=== PATIENT | female | born 1955 | race Caucasian/White ===

== ENCOUNTER 2016-12-03 13:07 | Inpatient (IN) ==
[2016-12-03] MEDS ORDERED: Pantoprazole 40 MG VIAL IVP ONE (13:19)
[2016-12-03] MEDS ORDERED: Ondansetron 4 MG/2 ML VIAL IVP ONE (13:22)
[2016-12-03] MEDS ORDERED: *HR* HYDROmorphone (PF) 1 MG/ML SYRINGE IVP ONE ×2 (13:22→21:25)
--- NOTE | 2016-12-03 13:44 | Emergency Department Note ---
Disposition Clinical Impression: Anemia Disposition: Admitted As Inpatient Condition: Fair Referrals: Lida Perez DO [Primary Care Provider] - Forms: Work/School Release, ED Satisfaction Letter Time of Disposition: 15:12 Abdominal Pain HPI - General Chief Complaint: ED Abdominal Pain Stated Complaint: abdominal pain/vomiting Time Seen by Provider: 12/03/16 13:10 Source: patient Mode of arrival: EMS Limitations: no limitations Nursing Notes Reviewed: Yes Vital Signs Reviewed: Yes - History of Present Illness HPI Narrative: 61-year-old has had a GI bleed in the past since she's had ulcer who comes in with dark tarry stools and vomiting some coffee-ground emesis. 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 Consistency: constant Location: diffuse Pain Severity: moderate Pain Scale: 8 Quality: cramping Radiation: none Migration to: no migration Improves with: nothing Worsens with: nothing Associated symptoms: Reports: nausea, vomiting Treatments prior to arrival: none - Related Data Home Medications Medication Instructions Recorded Confirmed Albuterol Sulfate [Proair Hfa] 2 puff IH Q4H PRN 09/01/16 09/01/16 Budesonide/Formoterol 160/4.5 2 puff IH BID 09/01/16 09/01/16 [Symbicort 160/4.5] Doxepin [Sinequan] 100 mg PO HS 09/01/16 09/01/16 Duloxetine HCl [Cymbalta] 60 mg PO DAILY 09/01/16 09/01/16 Ferrous Sulfate [Iron] 325 mg PO BID 09/01/16 09/01/16 Gabapentin [Neurontin] 100 mg PO TID 09/01/16 09/01/16 Oxybutynin Chloride [Ditropan Xl] 5 mg PO DAILY 09/01/16 09/01/16 Pantoprazole Sodium [Protonix] 40 mg PO BID 09/01/16 09/01/16 Promethazine [Phenergan] 25 mg PO HS 09/01/16 09/01/16 Previous Rx's Medication Instructions Recorded Ranitidine HCl [Zantac] 300 mg PO HS #30 tablet 09/02/16 Sucralfate [Carafate] 1 gm PO ACHS 7 Days 09/02/16 Acetaminophen w/Cod 300-30 mg 1 each PO Q8HR PRN #9 tablet 09/30/16 [Tylenol w/Codeine #3] Amoxicillin 875 mg PO BID #20 tablet 09/30/16 Allergies Allergy/AdvReac Type Severity Reaction Status Date / Time Zolpidem [From Ambien] Allergy Agitated Verified 08/31/16 16:33 [email or web address] [From Lunesta] AdvReac Gastrointestinal Verified 09/01/16 09:48 Upset Constitutional: Denies: fever, chills, weakness, weight change Eyes: Denies: eye pain, eye discharge, vision change ENT ED: Denies: ear pain, throat pain, dental pain, hearing loss, epistaxis, congestion, dysphagia Cardiovascular: Denies: chest pain, palpitations, dyspnea on exertion, edema, syncope Respiratory: Denies: cough, dyspnea, wheezes, hemoptysis, stridor Gastrointestinal: Denies: abdominal pain, nausea, vomiting, diarrhea, constipation, hematemesis, melena, hematochezia Genitourinary: Denies: dysuria, frequency, hematuria, discharge Musculoskeletal: Denies: back pain, neck pain, arthralgia, myalgia Integumentary: Denies: rash, abrasion, lesions Neurological: Denies: headache, weakness, numbness, paresthesias, confusion, abnormal gait, vertigo Psychiatric: Denies: anxiety, depression, suicidal thoughts, homicidal thoughts , auditory hallucinations, visual hallucinations Endocrine: Denies: fatigue Hematological/Lymphatic: Denies: easy bleeding, easy bruising Allergic/Immunologic: Denies: facial swelling, urticaria Abdominal Pain PMH - Past Medical History Medical history: Reports: COPD, other Female Surgical History: Reports: cholecystectomy, hysterectomy, knee replacement, other 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-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 Psychiatric history: Reports: anxiety, bipolar, depression, PTSD, previous psychiatric hospitalization - Social History Smoking status: Current every day smoker Alcohol use: Reports: none Drug use: Reports: none Physical Exam - General Limitations: no limitations General appearance: alert - Head Head exam: atraumatic, normocephalic, normal inspection - Eye Eye exam: Present: normal appearance, PERRL, EOMI - ENT ENT exam: normal exam, normal oropharynx, mucous membranes moist - Neck Neck exam: Present: normal inspection, full ROM, trachea midline - Chest Chest inspection: Present: normal inspection, symmetric chest wall rise - Respiratory Respiratory exam: Present: normal lung sounds bilaterally - Cardiovascular Cardiovascular exam: Present: regular rate, normal rhythm, normal heart sounds - Abdominal Exam Abdominal exam: Present: soft, Non-Tender. Absent: tenderness, distention, guarding, rebound, rigidity - Rectal Exam Partner Manager present during exam: Yes Rectal exam: Present: black stool - Extremities Exam Extremities exam: Present: normal inspection, full ROM. Absent: tenderness, pedal edema - Expanded Lower Extremity Exam Neurovascular/Tendon exam: Absent: motor deficit, sensory deficit, tendon deficit - Back Exam Back exam: Present: normal inspection, full ROM. Absent: tenderness - Neurological Exam Neurological exam: Present: alert, oriented X3 - Psychiatric Psychiatric exam: Present: normal affect, normal mood - Skin Skin exam: Present: warm, dry, intact, normal color Course - Reevaluation(s) Reevaluation #1: D11-year-old has had a history of previous GI bleeds she says she's been scoped in the past has had ulcers in the past she's had a Whit-Thomson tear in the past and time she's had nothing that shows up who has had darker stools and coffee-ground emesis hemoglobin is 7. Admit and give her blood her vital signs been stable here in the emergency department. Time: 15:11 - Consultations Time: 15:11 Vital Signs Temperature 98.5 F 12/03/16 13:12 Pulse Rate 104 12/03/16 13:12 Respiratory Rate 16 12/03/16 13:12 Blood Pressure 92/62 12/03/16 13:12 O2 Sat by Pulse Oximetry 95 12/03/16 13:12 Temperature 98.5 F 12/03/16 13:12 Pulse Rate 101 12/03/16 15:00 Respiratory Rate 16 12/03/16 15:00 Blood Pressure 127/56 12/03/16 15:00 O2 Sat by Pulse Oximetry 95 12/03/16 15:00 Oxygen Delivery Oxygen Delivery Nasal Cannula Abdominal Pain - Lab Data Result diagrams: 12/03/16 14:10 12/03/16 14:10 Lab Results 12/03/16 12/03/16 12/03/16 Range/Units 14:10 14:10 14:10 WBC 6.7 (4.3-11.1) K/mcL RBC 2.60 L (3.82-4.97) M/mcL Hgb 7.0 L (11.5-15.4) g/dL Hct 23.5 L (35.3-44.9) % MCV 90.4 (83.0-100.0) fL MCH 26.9 L (28.0-33.3) pg MCHC 29.8 L (31.6-35.5) g/dL RDW 16.6 H (11.5-14.5) % Plt Count 351 (140-400) K/mcL MPV 11.2 (9.4-12.4) fL Immature Gran % 0.4 (0-4) % Seg Neutrophils % 70.0 % Lymphocytes % 18.4 % Monocytes % 7.8 % Eosinophils % 2.8 % Basophils % 0.6 % Neutrophils # 4.7 (1.6-8.9) K/mcL Lymphocytes # 1.2 (0.6-4.6) K/mcL Monocytes # 0.5 (0.0-1.3) K/mcL Eosinophils # 0.2 (0.0-0.6) K/mcL Basophils # 0.0 (0.0-0.2) K/mcL PT 12.0 (9.4-12.1) Seconds INR 1.1 APTT 24.9 L (26.0-36.0) Seconds Sodium 140 (136-145) mEq/L Potassium 3.4 L (3.5-4.5) mEq/L Chloride 104 (98-109) mEq/L Carbon Dioxide 26 (19-29) mEq/L BUN 14 (7-20) mg/dL Creatinine 0.88 (0.57-1.11) mg/dL Est GFR ( Amer) > 60 (> 60) Est GFR (Non-Af Amer) > 60 (> 60) BUN/Creatinine Ratio 16 (6-26) Glucose 85 (70-99) mg/dL Calculated Osmolality 290 (280-300) Lactic Acid (0.5-2.2) mmol/L Calcium 8.5 L (8.6-10.8) mg/dL Total Bilirubin 0.2 (0.2-1.2) mg/dL Direct Bilirubin 0.1 (0.0-0.5) mg/dL Indirect Bilirubin 0.1 (0.0-1.2) mg/dL AST 17 (5-34) Units/L ALT 14 (0-55) Units/L Alkaline Phosphatase 96 (38-126) Units/L Troponin I (0-0.03) ng/mL Serum Total Protein 6.3 (6.0-8.3) g/dL Albumin 3.0 L (3.5-5.0) g/dL Globulin 3.3 (2.4-3.5) g/dL Albumin/Globulin Ratio 0.9 L (1.1-2.2) Amylase 26 (25-125) Units/L Lipase 12 (8-78) Units/L Stool Occult Blood (Negative) Blood Type Antibody Screen Crossmatch 12/03/16 12/03/16 12/03/16 Range/Units 14:10 14:10 14:10 WBC (4.3-11.1) K/mcL RBC (3.82-4.97) M/mcL Hgb (11.5-15.4) g/dL Hct (35.3-44.9) % MCV (83.0-100.0) fL MCH (28.0-33.3) pg MCHC (31.6-35.5) g/dL RDW (11.5-14.5) % Plt Count (140-400) K/mcL MPV (9.4-12.4) fL Immature Gran % (0-4) % Seg Neutrophils % % Lymphocytes % % Monocytes % % Eosinophils % % Basophils % % Neutrophils # (1.6-8.9) K/mcL Lymphocytes # (0.6-4.6) K/mcL Monocytes # (0.0-1.3) K/mcL Eosinophils # (0.0-0.6) K/mcL Basophils # (0.0-0.2) K/mcL PT (9.4-12.1) Seconds INR APTT (26.0-36.0) Seconds Sodium (136-145) mEq/L Potassium (3.5-4.5) mEq/L Chloride (98-109) mEq/L Carbon Dioxide (19-29) mEq/L BUN (7-20) mg/dL Creatinine (0.57-1.11) mg/dL Est GFR ( Amer) (> 60) Est GFR (Non-Af Amer) (> 60) BUN/Creatinine Ratio (6-26) Glucose (70-99) mg/dL Calculated Osmolality (280-300) Lactic Acid 1.3 (0.5-2.2) mmol/L Calcium (8.6-10.8) mg/dL Total Bilirubin (0.2-1.2) mg/dL Direct Bilirubin (0.0-0.5) mg/dL Indirect Bilirubin (0.0-1.2) mg/dL AST (5-34) Units/L ALT (0-55) Units/L Alkaline Phosphatase (38-126) Units/L Troponin I 0.00 (0-0.03) ng/mL Serum Total Protein (6.0-8.3) g/dL Albumin (3.5-5.0) g/dL Globulin (2.4-3.5) g/dL Albumin/Globulin Ratio (1.1-2.2) Amylase (25-125) Units/L Lipase (8-78) Units/L Stool Occult Blood (Negative) Blood Type A POSITIVE Antibody Screen NEGATIVE Crossmatch See Detail 12/03/16 Range/Units 14:49 WBC (4.3-11.1) K/mcL RBC (3.82-4.97) M/mcL Hgb (11.5-15.4) g/dL Hct (35.3-44.9) % MCV (83.0-100.0) fL MCH (28.0-33.3) pg MCHC (31.6-35.5) g/dL RDW (11.5-14.5) % Plt Count (140-400) K/mcL MPV (9.4-12.4) fL Immature Gran % (0-4) % Seg Neutrophils % % Lymphocytes % % Monocytes % % Eosinophils % % Basophils % % Neutrophils # (1.6-8.9) K/mcL Lymphocytes # (0.6-4.6) K/mcL Monocytes # (0.0-1.3) K/mcL Eosinophils # (0.0-0.6) K/mcL Basophils # (0.0-0.2) K/mcL PT (9.4-12.1) Seconds INR APTT (26.0-36.0) Seconds Sodium (136-145) mEq/L Potassium (3.5-4.5) mEq/L Chloride (98-109) mEq/L Carbon Dioxide (19-29) mEq/L BUN (7-20) mg/dL Creatinine (0.57-1.11) mg/dL Est GFR ( Amer) (> 60) Est GFR (Non-Af Amer) (> 60) BUN/Creatinine Ratio (6-26) Glucose (70-99) mg/dL Calculated Osmolality (280-300) Lactic Acid (0.5-2.2) mmol/L Calcium (8.6-10.8) mg/dL Total Bilirubin (0.2-1.2) mg/dL Direct Bilirubin (0.0-0.5) mg/dL Indirect Bilirubin (0.0-1.2) mg/dL AST (5-34) Units/L ALT (0-55) Units/L Alkaline Phosphatase (38-126) Units/L Troponin I (0-0.03) ng/mL Serum Total Protein (6.0-8.3) g/dL Albumin (3.5-5.0) g/dL Globulin (2.4-3.5) g/dL Albumin/Globulin Ratio (1.1-2.2) Amylase (25-125) Units/L Lipase (8-78) Units/L Stool Occult Blood Negative (Negative) Blood Type Antibody Screen Crossmatch Critical Care Time Critical Care Time: Yes Total Critical Care Time: 30 Attestation: The high probability of a clinically significant, sudden or life threatening deterioration of the [gastrointestinal] system(s) required my full and direct attention, intervention and personal management. The aggregate critical care time was [30] minutes. This time is in addition to time spent performing reported procedures but includes the following: [x] Data Review and interpretation [x] Patient assessment and monitoring of vital signs [x] Documentation [x] Medication orders and management
[2016-12-03 14:28] LABS: INR 1.1
[2016-12-03 14:30] LABS: Activated Partial Thrombo Time 24.9 Seconds (26.0-36.0)
[2016-12-03 14:37] LABS: Basophils % 0.6 %; Eosinophils # 0.2 K/mcL (0.0-0.6); Eosinophils % 2.8 %; Hematocrit 23.5 % (35.3-44.9); Immature Granulocytes % 0.4 % (0-4); Lymphocytes # 1.2 K/mcL (0.6-4.6); Lymphocytes % 18.4 %; Mean Corpuscular HGB Conc 29.8 g/dL (31.6-35.5); Mean Corpuscular Hemoglobin 26.9 pg (28.0-33.3); Mean Corpuscular Volume 90.4 fL (83.0-100.0); Mean Platelet Volume 11.2 fL (9.4-12.4); Monocytes # 0.5 K/mcL (0.0-1.3); Monocytes % 7.8 %; Neutrophils # 4.7 K/mcL (1.6-8.9); Platelet Count 351 K/mcL (140-400); Red Cell Distribution Width 16.6 % (11.5-14.5)
[2016-12-03 14:40] LABS: Alanine Aminotransferase 14 Units/L (0-55); Albumin/Globulin Ratio 0.9 (1.1-2.2); Alkaline Phosphatase 96 Units/L (38-126); Amylase 26 Units/L (25-125); Aspartate Amino Transferase 17 Units/L (5-34); BUN/Creatinine Ratio 16 (6-26); Bilirubin,Direct 0.1 mg/dL (0.0-0.5); Bilirubin,Indirect 0.1 mg/dL (0.0-1.2); Bilirubin,Total 0.2 mg/dL (0.2-1.2); Blood Urea Nitrogen 14 mg/dL (7-20); Calcium 8.5 mg/dL (8.6-10.8); Carbon Dioxide 26 mEq/L (19-29); Chloride 104 mEq/L (98-109); Globulin 3.3 g/dL (2.4-3.5); Glucose 85 mg/dL (70-99); Lipase 12 Units/L (8-78); Osmolality,Calculated 290 (280-300); Sodium 140 mEq/L (136-145); Total Protein 6.3 g/dL (6.0-8.3); eGFR For African Americans > 60 (> 60); eGFR For Non-African Americans > 60 (> 60)
[2016-12-03 14:48] LABS: Potassium 3.4 mEq/L (3.5-4.5)
[2016-12-03] MEDS ORDERED: 0.9 % Sodium Chloride 500 ML ONE (15:22)
[2016-12-03] MEDS ORDERED: Ondansetron 4 MG/2 ML VIAL IVP PRN (21:54)
[2016-12-03] MEDS ORDERED: Naloxone 0.4 MG/ML INJ IVP PRN (21:54)
[2016-12-03] MEDS: Gabapentin 100 MG CAPSULE PO SCH (22:19)
[2016-12-03] MEDS: Mirtazapine 15 MG TABLET PO SCH (22:19)
[2016-12-03] MEDS: clonazePAM 1 MG TABLET PO PRN (22:20)
--- NOTE | 2016-12-03 22:37 | Internal Med History&Physical ---
<Danna Louie M - Last Filed: 12/03/16 23:51> Date of Encounter: 12/03/16 Time of Encounter: 22:27 Assessment and Plan (1) Upper GI bleed Current visit: Yes Status: Suspected Suspected GI bleed with patient reports of coffee emesis and tarry stools, as well as Hgb of 7.0. Transfuse 2 units of Packed RBCs Recheck CBC after 2nd unit NPO 40mg IVP protonix BID Consult to GI ordered, will need to be called. (2) Acute blood loss anemia Current visit: No Status: Acute Patient with Hgb 7.0. Patient reporting coffee emesis and tarry stools. No episodes since she has been here. Stool occult negative. Transfuse 2 units of blood 40mg IVP Protonix BID Recheck CBC after 2nd unit of blood. (3) Hematemesis Current visit: No Status: Acute Patient reporting coffee ground emesis. No episodes since arrival. PRN IVP zofran for nausea. 40mg IVP Protonix BID Qualifiers: Nausea presence: with nausea Qualified Code(s): K92.0 - Hematemesis; R11.0 - Nausea (4) DVT prophylaxis Current visit: No Status: Acute encourage ambulation anti-embolic stockings pharmacologic prophylaxis contraindicated with concern for active GI bleed. (5) IV infiltrate Current visit: Yes Status: Acute Patient's IV infiltrated while 2nd unit of blood transfusing. Patient had moderate sized hematoma at left shoulder insertion site of peripheral IV. Apply ice. Qualifiers: Encounter type: initial encounter Qualified Code(s): T80.1XXA - Vascular complications following infusion, transfusion and therapeutic injection, initial encounter Internal Medicine - H&P: HPI Chief complaint: tarry stools, coffee emesis, weakness Admitted From: Emergency Dept Plans for Post Hospital Care: Home History of present illness: Ms. Camp is a 61 year old female with history of COPD, bipolar disorder, anxiety, and multiple episodes of GI bleeding with anemia presented to the emergency department today with complaints of weakness after several days of dark stools and coffee-ground emesis. Patient reports she has multiple episodes of dark stools and coffee emesis, and sometimes they resolve on their own and she does not come into the hospital. However she reported having some weakness and thought that she should come in today. She has not had any episodes since presenting to the emergency department. She reports some abdominal pain and some lightheadedness over the past few days as well. The abdominal pain is described as burning, constant, and relieved by pain medicine. She denies any chest pain, palpitations, headaches. She denies any fever, chills, sweats. Evaluation in the emergency department was significant for hemoglobin of 7.0, troponin was negative at 0.0, stool occult blood was negative. CT of the abdomen and pelvis showed no acute abdominal or pelvic abnormality, moderate size hiatal hernia. On exam, patient alert and oriented, in no acute distress. Heart had regular rate and rhythm, lungs were clear bilaterally to auscultation. Abdomen was soft, nontender. Blood was infusing through a left shoulder peripheral IV, which was infiltrated and had a hematoma. Past Med Surg Social Fam HX - Past Medical History Medical history: COPD, other Psychiatric history: anxiety, bipolar, depression, PTSD, previous psychiatric hospitalization - Past Surgical History Surgical History: cholecystectomy, hysterectomy, other - Social History Smoking Status: Current every day smoker Packs per day: 15 cigs per day. Smokeless Tobacco Status: No Alcohol use: none Drug use: none - Family History Mother Adopted: No Family Member Ethnicity: Non- Living Status: Hx Family Cardiac Disorders: Yes ([place]) Hx Family Respiratory Disorders: Yes (COPD) Hx Family Cancer: Yes (Cervical) Hx Family GI Disorders: No Hx Family Endocrine Disorder: Yes (DM) Hx Family Neuromuscular Disorders: No Hx Family Neurologic Disorders: No Hx Family HEENT Disorders: No Hx Family Autoimmune Disorders: No Hx Family Psychosocial Disorders: Yes (Bipolar) Father Living Status: Hx Family Cardiac Disorders: No Hx Family Respiratory Disorders: No Hx Family Cancer: Yes (Throat) Hx Family Endocrine Disorder: Yes (DM) Internal Medicine - H&P: Meds Albuterol Sulfate [Proair Hfa] 2 puff IH Q4H PRN 09/01/16 [History] Budesonide/Formoterol 160/4.5 [Symbicort 160/4.5] 2 puff IH BID 09/01/16 [ History] Doxepin [Sinequan] 100 mg PO HS 09/01/16 [History] Duloxetine HCl [Cymbalta] 60 mg PO BID 09/01/16 [History] Gabapentin [Neurontin] 100 mg PO TID 09/01/16 [History] Pantoprazole Sodium [Protonix] 40 mg PO DAILY 09/01/16 [History] Promethazine [Phenergan] 25 mg PO HS 09/01/16 [History] ClonazePAM [Klonopin] 1 mg PO TID PRN 12/03/16 [History] Mirtazapine [Mirtazapine] 15 mg PO HS 12/03/16 [History] Allergies Zolpidem [From Ambien] Allergy (Verified 08/31/16 16:33) Agitated eszopiclone [From Lunesta] Adverse Reaction (Verified 09/01/16 09:48) Gastrointestinal Upset All Systems PM: A 10-system review of systems was performed and is negative for pertinent findings except as documented above in the HPI. - Constitutional Constitutional: weakness, no chills, no fever(s), no night sweats - EENT Eyes: no change in vision, no discharge, no pain, no photophobia Ears: no ear discharge, no ear pain, no tinnitus Nose, mouth and throat: no dysphagia, no nasal discharge, no neck pain, no sore throat - Cardiovascular Cardiovascular ROS IM: no chest pain, no diaphoresis, no dyspnea, no lightheadedness, no palpitations, no syncope - Respiratory Respiratory: no cough, no dyspnea, no wheezing, no excessive phlegm production - Gastrointestinal Gastrointestinal: abdominal pain, coffee ground emesis, melena, no diarrhea, no hematemesis, no hematochezia, no nausea, no vomiting - Genitourinary Genitourinary: no change in urinary stream, no dysuria, no flank pain, no hematuria - Musculoskeletal Musculoskeletal ROS IM: no numbness, no tingling - Integumentary Integumentary IM: no rash, no unusual bruising - Neurological Neurological ROS: no confusion, no convulsions, no focal weakness, no numbness, no tingling, no tremor(s) - Hematologic/Lymphatic Hematologic/Lymphatic: no easy bruising - Constitutional Vitals: Temp Pulse Resp BP Pulse Ox 98.0 F 95 17 105/51 92 L 12/03/16 22:18 12/03/16 22:18 12/03/16 22:18 12/03/16 22:18 12/03/16 22:18 General appearance: Present: A&O X 3, pleasant, no acute distress - Head Head exam: Present: atraumatic, normocephalic - Eye Eye exam: Present: PERRL, conjuntiva pink, sclera anicteric Pupils: Present: PERRL - Neck Neck exam general surgery: Present: supple, trachea midline. Absent: lymphadenopathy - Respiratory Respiratory exam: Present: CTAB. Absent: accessory muscle use, rales, rhonchi, wheezes - Cardiovascular Cardiovascular exam: Present: RRR, +S1, +S2. Absent: diastolic murmur, gallop, rubs, systolic murmur - GI/Abdominal GI/Abdominal exam: Present: normal bowel sounds, soft, no peritoneal signs. Absent: distended, tenderness - Extremities Exam Extremities exam: Present: warm, radial pulses palpable and symetrical. Absent : calf tenderness, cyanotic, pedal edema Additional comments: left shoulder hematoma at PIV insertion site - Neurological Exam Neurological exam: Present: CN II-XII intact, oriented X3, no focal deficits. Absent: facial droop, speech deficit - Skin Skin exam: Present: dry, intact Internal Med - H&P Results - Labs CBC & Chem 7: 12/03/16 14:10 12/03/16 14:10 Labs: All Lab Results (24 Hours) 12/03/16 12/03/16 12/03/16 Range/Units 14:10 14:10 14:10 WBC 6.7 (4.3-11.1) K/mcL RBC 2.60 L (3.82-4.97) M/mcL Hgb 7.0 L (11.5-15.4) g/dL Hct 23.5 L (35.3-44.9) % MCV 90.4 (83.0-100.0) fL MCH 26.9 L (28.0-33.3) pg MCHC 29.8 L (31.6-35.5) g/dL RDW 16.6 H (11.5-14.5) % Plt Count 351 (140-400) K/mcL MPV 11.2 (9.4-12.4) fL Immature Gran % 0.4 (0-4) % Seg Neutrophils % 70.0 % Lymphocytes % 18.4 % Monocytes % 7.8 % Eosinophils % 2.8 % Basophils % 0.6 % Neutrophils # 4.7 (1.6-8.9) K/mcL Lymphocytes # 1.2 (0.6-4.6) K/mcL Monocytes # 0.5 (0.0-1.3) K/mcL Eosinophils # 0.2 (0.0-0.6) K/mcL Basophils # 0.0 (0.0-0.2) K/mcL PT 12.0 (9.4-12.1) Seconds INR 1.1 APTT 24.9 L (26.0-36.0) Seconds Sodium 140 (136-145) mEq/L Potassium 3.4 L (3.5-4.5) mEq/L Chloride 104 (98-109) mEq/L Carbon Dioxide 26 (19-29) mEq/L BUN 14 (7-20) mg/dL Creatinine 0.88 (0.57-1.11) mg/dL Est GFR ( Amer) > 60 (> 60) Est GFR (Non-Af Amer) > 60 (> 60) BUN/Creatinine Ratio 16 (6-26) Glucose 85 (70-99) mg/dL Calculated Osmolality 290 (280-300) Lactic Acid (0.5-2.2) mmol/L Calcium 8.5 L (8.6-10.8) mg/dL Total Bilirubin 0.2 (0.2-1.2) mg/dL Direct Bilirubin 0.1 (0.0-0.5) mg/dL Indirect Bilirubin 0.1 (0.0-1.2) mg/dL AST 17 (5-34) Units/L ALT 14 (0-55) Units/L Alkaline Phosphatase 96 (38-126) Units/L Troponin I (0-0.03) ng/mL Serum Total Protein 6.3 (6.0-8.3) g/dL Albumin 3.0 L (3.5-5.0) g/dL Globulin 3.3 (2.4-3.5) g/dL Albumin/Globulin Ratio 0.9 L (1.1-2.2) Amylase 26 (25-125) Units/L Lipase 12 (8-78) Units/L Stool Occult Blood (Negative) Blood Type Antibody Screen Crossmatch 12/03/16 12/03/16 12/03/16 Range/Units 14:10 14:10 14:10 WBC (4.3-11.1) K/mcL RBC (3.82-4.97) M/mcL Hgb (11.5-15.4) g/dL Hct (35.3-44.9) % MCV (83.0-100.0) fL MCH (28.0-33.3) pg MCHC (31.6-35.5) g/dL RDW (11.5-14.5) % Plt Count (140-400) K/mcL MPV (9.4-12.4) fL Immature Gran % (0-4) % Seg Neutrophils % % Lymphocytes % % Monocytes % % Eosinophils % % Basophils % % Neutrophils # (1.6-8.9) K/mcL Lymphocytes # (0.6-4.6) K/mcL Monocytes # (0.0-1.3) K/mcL Eosinophils # (0.0-0.6) K/mcL Basophils # (0.0-0.2) K/mcL PT (9.4-12.1) Seconds INR APTT (26.0-36.0) Seconds Sodium (136-145) mEq/L Potassium (3.5-4.5) mEq/L Chloride (98-109) mEq/L Carbon Dioxide (19-29) mEq/L BUN (7-20) mg/dL Creatinine (0.57-1.11) mg/dL Est GFR ( Amer) (> 60) Est GFR (Non-Af Amer) (> 60) BUN/Creatinine Ratio (6-26) Glucose (70-99) mg/dL Calculated Osmolality (280-300) Lactic Acid 1.3 (0.5-2.2) mmol/L Calcium (8.6-10.8) mg/dL Total Bilirubin (0.2-1.2) mg/dL Direct Bilirubin (0.0-0.5) mg/dL Indirect Bilirubin (0.0-1.2) mg/dL AST (5-34) Units/L ALT (0-55) Units/L Alkaline Phosphatase (38-126) Units/L Troponin I 0.00 (0-0.03) ng/mL Serum Total Protein (6.0-8.3) g/dL Albumin (3.5-5.0) g/dL Globulin (2.4-3.5) g/dL Albumin/Globulin Ratio (1.1-2.2) Amylase (25-125) Units/L Lipase (8-78) Units/L Stool Occult Blood (Negative) Blood Type A POSITIVE Antibody Screen NEGATIVE Crossmatch See Detail 12/03/16 Range/Units 14:49 WBC (4.3-11.1) K/mcL RBC (3.82-4.97) M/mcL Hgb (11.5-15.4) g/dL Hct (35.3-44.9) % MCV (83.0-100.0) fL MCH (28.0-33.3) pg MCHC (31.6-35.5) g/dL RDW (11.5-14.5) % Plt Count (140-400) K/mcL MPV (9.4-12.4) fL Immature Gran % (0-4) % Seg Neutrophils % % Lymphocytes % % Monocytes % % Eosinophils % % Basophils % % Neutrophils # (1.6-8.9) K/mcL Lymphocytes # (0.6-4.6) K/mcL Monocytes # (0.0-1.3) K/mcL Eosinophils # (0.0-0.6) K/mcL Basophils # (0.0-0.2) K/mcL PT (9.4-12.1) Seconds INR APTT (26.0-36.0) Seconds Sodium (136-145) mEq/L Potassium (3.5-4.5) mEq/L Chloride (98-109) mEq/L Carbon Dioxide (19-29) mEq/L BUN (7-20) mg/dL Creatinine (0.57-1.11) mg/dL Est GFR ( Amer) (> 60) Est GFR (Non-Af Amer) (> 60) BUN/Creatinine Ratio (6-26) Glucose (70-99) mg/dL Calculated Osmolality (280-300) Lactic Acid (0.5-2.2) mmol/L Calcium (8.6-10.8) mg/dL Total Bilirubin (0.2-1.2) mg/dL Direct Bilirubin (0.0-0.5) mg/dL Indirect Bilirubin (0.0-1.2) mg/dL AST (5-34) Units/L ALT (0-55) Units/L Alkaline Phosphatase (38-126) Units/L Troponin I (0-0.03) ng/mL Serum Total Protein (6.0-8.3) g/dL Albumin (3.5-5.0) g/dL Globulin (2.4-3.5) g/dL Albumin/Globulin Ratio (1.1-2.2) Amylase (25-125) Units/L Lipase (8-78) Units/L Stool Occult Blood Negative (Negative) Blood Type Antibody Screen Crossmatch - Diagnostic Studies CT scan - abdomen Additional comments: Abdomen/Pelvis CT 12/03/16 13:20 IMPRESSION: 1. No acute abdominal or pelvic abnormality. Normal appendix. 2. Moderate-sized hiatal hernia. 3. Mild coronary artery disease. 4. Cholecystectomy and hysterectomy. D/ / Bia Davis MD / Bia Davis MD Interpreting Provider: Bia Davis MD <Gustavo Peguero R - Last Filed: 12/04/16 07:55> Internal Medicine - H&P: HPI History of present illness: Ms. Camp is a 61 year old female All Systems PM: A 10-system review of systems was performed and is negative for pertinent findings except as documented above in the HPI. - Constitutional Vitals: Temp Pulse Resp BP Pulse Ox 98.1 F 101 18 108/76 95 12/04/16 07:01 12/04/16 07:01 12/04/16 07:01 12/04/16 07:01 12/04/16 07:01 Internal Med - H&P Results - Labs CBC & Chem 7: 12/04/16 00:37 12/04/16 00:37 Labs: Short CBC 12/04/16 Range/Units 00:37 WBC 8.2 (4.3-11.1) K/mcL Hgb 9.2 L D (11.5-15.4) g/dL Hct 29.6 L (35.3-44.9) % Plt Count 324 (140-400) K/mcL Neutrophils # 5.7 (1.6-8.9) K/mcL BMP 12/04/16 00:37 Sodium 139 Potassium 3.8 Chloride 108 Carbon Dioxide 24 BUN 13 Creatinine 0.78 Glucose 94 Calcium 7.8 L - Attending Attestation I evaluated the patient and my medical decision-making was reviewed with the ELEVATOR SERVICE MECHANIC/ Advanced Practice Nurse. I agree with the documented findings, disposition and treatment plan as described except to the extent set forth below. 61 year old female with history of COPD, bipolar disorder, anxiety, multiple episodes of GI bleeding and anemia presents with weakness, dark stool and coffee ground emesis. She reports that she was investigated in the past and apparently had capsule Endoscopy As Well, but she does not know the result. O/E : Mild epigastric tenderness present. Hemoglobin is 7 with hematocrit of 23.5. She had 2 units of PRBC transfusion. Will consult automobile dealer for further advice. Started on pantoprazole 40 mg BID. Review capsule endoscopy result.
[2016-12-03] MEDS: Pantoprazole 40 MG VIAL IVP SCH (23:33)
[2016-12-04] MEDS: Pantoprazole 40 MG VIAL IVP SCH ×2 (00:53→05:30)
[2016-12-04 01:06] LABS: Basophils # 0.1 K/mcL (0.0-0.2); Basophils % 0.6 %; Eosinophils # 0.2 K/mcL (0.0-0.6); Eosinophils % 2.9 %; Hematocrit 29.6 % (35.3-44.9); Immature Granulocytes % 1.1 % (0-4); Lymphocytes # 1.3 K/mcL (0.6-4.6); Lymphocytes % 16.1 %; Mean Corpuscular HGB Conc 31.1 g/dL (31.6-35.5); Mean Corpuscular Hemoglobin 27.3 pg (28.0-33.3); Mean Corpuscular Volume 87.8 fL (83.0-100.0); Mean Platelet Volume 10.9 fL (9.4-12.4); Monocytes # 0.8 K/mcL (0.0-1.3); Monocytes % 9.4 %; Neutrophils # 5.7 K/mcL (1.6-8.9); Platelet Count 324 K/mcL (140-400); Red Blood Count 3.37 M/mcL (3.82-4.97); Segmented Neutrophils % 69.9 %
[2016-12-04 01:07] LABS: Hemoglobin 9.2 g/dL (11.5-15.4)
[2016-12-04 01:19] LABS: BUN/Creatinine Ratio 17 (6-26); Blood Urea Nitrogen 13 mg/dL (7-20); Calcium 7.8 mg/dL (8.6-10.8); Carbon Dioxide 24 mEq/L (19-29); Chloride 108 mEq/L (98-109); Glucose 94 mg/dL (70-99); Osmolality,Calculated 288 (280-300); Potassium 3.8 mEq/L (3.5-4.5); Sodium 139 mEq/L (136-145); eGFR For African Americans > 60 (> 60); eGFR For Non-African Americans > 60 (> 60)
[2016-12-04] MEDS: Budesonide/Formoterol 160/4.5 MDI IH SCH ×3 (03:24→20:35)
[2016-12-04] MEDS: Nicotine 2 MG GUM BC PRN ×2 (09:18→14:16)
--- NOTE | 2016-12-04 11:06 | Electrocardiograph Report ---
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
--- NOTE | 2016-12-04 12:10 | Gastroenterology Consult Note ---
<Abe Song Hans - Last Filed: 12/04/16 12:15> Date of Encounter: 12/04/16 Time of Encounter: 10:20 - Assessment and plan (1) Upper GI bleed Current Visit: Yes Status: Suspected Assessment and plan: pt with recurrent upper GI bleed. Last time August 2016. Plan for EGD and colonoscopy tomorrow. Clear liquid diet today, no red or purple. NPO at midnight. If unable tolerate NuLytely please use MiraLAX prep. If not clear by 6 AM, give 2 tap water enemas. Start PPT drip. (2) Acute blood loss anemia Current Visit: No Status: Acute Assessment and plan: Secondary to upper GI bleed. Pt with melena and hematemesis. Continue to monitor CBC and transfuse PRBC as needed. Check iron and ferritin from ED sample. (3) Melena Current Visit: Yes Status: Acute (4) Coffee ground emesis Current Visit: Yes Status: Acute - Time Spent With Patient Total time spent is greater than 50% in coordination of care (as documented) at patient's floor/unit and/or counseling patient: GI History of Present Illness - Data of Consult Patient: new to practice Consult date: 12/04/16 Requesting Physician: Shefali De La Rosa - Consult Narrative Reason for consult: GI bleed History of present illness: Ms. Camp is a 61 year old female with PMHx of COPD, bipolar, anxiety, and previous GI bleed (08/2016) who presented with melena and coffee-ground emesis. She reports these symptoms occur and usually resolve on their own, and she does not have it evaluated. Due to having weakness, she presented ot the ED for further evaluation. She denies fever, chills, headache, chest pain, diarrhea, or hematochezia. Hgb 7 on admission and 9.2 this morning after 2 units of PRBC infused. Procedure: EGD 09/01/2016 Dr. Gato BORDNE Grade B esophagitis with bleeding, coagulation with APC. A single diminutive nonbleeding angiectasia found in the gastric body, coagulation using hot biopsy forceps was successful. NSAIDs: None Anticoagulation: None Past Med Surg Social Fam HX - Past Medical History Medical history: COPD, other Psychiatric history: anxiety, bipolar, depression, PTSD, previous psychiatric hospitalization - Past Surgical History Surgical History: cholecystectomy, hysterectomy, other - Social History Smoking Status: Current every day smoker Packs per day: 15 cigs per day. Smokeless Tobacco Status: No Alcohol use: none Drug use: none - Family History Mother Adopted: No Family Member Ethnicity: Non- Living Status: Hx Family Cardiac Disorders: Yes ([place]) Hx Family Respiratory Disorders: Yes (COPD) Hx Family Cancer: Yes (Cervical) Hx Family GI Disorders: No Hx Family Endocrine Disorder: Yes (DM) Hx Family Neuromuscular Disorders: No Hx Family Neurologic Disorders: No Hx Family HEENT Disorders: No Hx Family Autoimmune Disorders: No Hx Family Psychosocial Disorders: Yes (Bipolar) Father Living Status: Hx Family Cardiac Disorders: No Hx Family Respiratory Disorders: No Hx Family Cancer: Yes (Throat) Hx Family Endocrine Disorder: Yes (DM) - Gastrointestinal Gastrointestinal: Present: as per HPI - Constitutional Constitutional: as per HPI - EENT Eyes: as per HPI Ears: Present: as per HPI Nose, mouth and throat: Present: as per HPI - Cardiovascular Cardiovascular ROS: Present: as per HPI - Respiratory Respiratory IM: Present: as per HPI - Genitourinary Genitourinary: Absent: change in color, Urinary frequency - Neurological ROS Neurological GI: Present: as per HPI - Hematologic/Lymphatic Hematologic/Lymphatic pediatric: Present: as per HPI - Musculoskeletal Musculoskeletal ROS GI: Present: as per HPI - Integumentary Integumentary GI: Present: as per HPI - Psychiatric ROS Psychiatric GI: Present: as per HPI - Endocrine Endocrine IM: Present: as per HPI - Constitutional Vitals: Temp Pulse Resp BP Pulse Ox 98 F 98 17 137/83 90 L 12/04/16 11:48 12/04/16 11:48 12/04/16 11:48 12/04/16 11:48 12/04/16 11:48 General appearance: Present: cooperative, A&O X 3, no acute distress, answers questions appropriately - Head Head exam: Present: atraumatic, normocephalic - Eye Eye exam: Present: normal appearance, sclera anicteric - ENT ENT exam: Present: mucous membranes moist - Neck Neck exam general surgery: Present: normal inspection, trachea midline - Respiratory Respiratory exam: Present: CTAB. Absent: rales, rhonchi - Cardiovascular Cardiovascular exam: Present: RRR, +S1, +S2 - GI/Abdominal GI/Abdominal exam: Present: soft, tenderness (epigastric), no peritoneal signs. Absent: distended, firm, guarding - Rectal Rectal exam: Present: deferred - Extremities Exam Extremities exam: Present: warm - Neurological Exam Neurological exam: Present: no focal deficits - Psychiatric Psychiatric exam: Present: normal affect, normal mood - Skin Skin exam: Present: dry, intact, normal color, warm Results - Labs CBC & Chem 7: 12/04/16 00:37 12/04/16 00:37 Labs: Last Result Calcium 7.8 mg/dL (8.6-10.8) L 12/04/16 00:37 Troponin I 0.00 ng/mL (0-0.03) 12/03/16 14:10 Stool Occult Blood Negative (Negative) 12/03/16 14:49 Entire Visit Hgb 9.2 g/dL (11.5-15.4) L D 12/04/16 00:37 Hct 29.6 % (35.3-44.9) L 12/04/16 00:37 PT 12.0 Seconds (9.4-12.1) 12/03/16 14:10 Total Bilirubin 0.2 mg/dL (0.2-1.2) 12/03/16 14:10 AST 17 Units/L (5-34) 12/03/16 14:10 ALT 14 Units/L (0-55) 12/03/16 14:10 Amylase 26 Units/L (25-125) 12/03/16 14:10 Lipase 12 Units/L (8-78) 12/03/16 14:10 - ABG ABG results: PT/INR, D-dimer PT 12.0 Seconds (9.4-12.1) 12/03/16 14:10 Consult Discharge Plan - Plan Referrals: Lida Perez DO [Primary Care Provider] - <Rajendra Mae - Last Filed: 12/04/16 21:33> Time of Encounter: 17:30 - Time Spent With Patient Total time spent is greater than 50% in coordination of care (as documented) at patient's floor/unit and/or counseling patient: GI History of Present Illness - Data of Consult Requesting Physician: Shefali De La Rosa - Consult Narrative History of present illness: Ms. Daily is a 61 year old female - Constitutional Vitals: Temp Pulse Resp BP Pulse Ox 98.0 F 91 16 110/56 96 12/04/16 20:23 12/04/16 20:23 12/04/16 20:23 12/04/16 20:23 12/04/16 20:23 Results - Labs CBC & Chem 7: 12/04/16 00:37 12/04/16 00:37 Labs: Last Result Calcium 7.8 mg/dL (8.6-10.8) L 12/04/16 00:37 Iron 16 mcg/dL (50-170) L 12/03/16 14:10 % Saturation 4 % (15-50) L 12/03/16 14:10 Transferrin 317 mg/dL (180-382) 12/03/16 14:10 Ferritin 9 ng/ml (5-204) 12/03/16 14:10 Troponin I 0.00 ng/mL (0-0.03) 12/03/16 14:10 Stool Occult Blood Negative (Negative) 12/03/16 14:49 Entire Visit Hgb 9.2 g/dL (11.5-15.4) L D 12/04/16 00:37 Hct 29.6 % (35.3-44.9) L 12/04/16 00:37 PT 12.0 Seconds (9.4-12.1) 12/03/16 14:10 Ferritin 9 ng/ml (5-204) 12/03/16 14:10 Total Bilirubin 0.2 mg/dL (0.2-1.2) 12/03/16 14:10 AST 17 Units/L (5-34) 12/03/16 14:10 ALT 14 Units/L (0-55) 12/03/16 14:10 Amylase 26 Units/L (25-125) 12/03/16 14:10 Lipase 12 Units/L (8-78) 12/03/16 14:10 - ABG ABG results: PT/INR, D-dimer PT 12.0 Seconds (9.4-12.1) 12/03/16 14:10 - Attending Attestation I examined this patient and my medical decision-making was reviewed with the GROUND WATER CONTRACTOR/PA/Advanced Practice Nurse/Resident Physician. I agree with the documented findings, disposition and treatment plan as described except to the extent set forth below.
--- NOTE | 2016-12-04 13:22 | Internal Med Progress Note ---
Date of Encounter: 12/04/16 Time of Encounter: 10:00 - Assessment and plan (1) Weakness Current Visit: No Status: Acute Assessment and plan: Patient was ambulatory around the unit this morning without any difficulty. She states her weakness has improved greatly since receiving blood transfusion. We will continue to monitor (2) Upper GI bleed Current Visit: Yes Status: Suspected (3) Anemia Current Visit: Yes Status: Acute Assessment and plan: Acute on chronic. She is currently hemodynamically stable status post transfusion of 2 units packed red blood cells. GI is on board, possible scope today (4) Acute blood loss anemia Current Visit: No Status: Suspected (5) Coffee ground emesis Current Visit: Yes Status: Acute Assessment and plan: No episodes of emesis since admission, patient nothing by mouth, GI on board (6) Melena Current Visit: Yes Status: Acute Assessment and plan: Last bowel movement 2 days ago, GI on board. (7) IV infiltrate Current Visit: Yes Status: Acute Assessment and plan: Ecchymosis noted to left shoulder. Distal pulses are intact, arm neurovascularly intact. Qualifiers: Encounter type: initial encounter Qualified Code(s): T80.1XXA - Vascular complications following infusion, transfusion and therapeutic injection, initial encounter (8) Anxiety Current Visit: No Status: Chronic (9) Chronic pain syndrome Current Visit: No Status: Chronic (10) DVT prophylaxis Current Visit: No Status: Acute Assessment and plan: IPC's ordered (11) HTN (hypertension) Current Visit: No Status: Chronic Assessment and plan: Controlled, will continue to trend (12) Mood disorder Current Visit: No Status: Chronic (13) COPD (chronic obstructive pulmonary disease) Current Visit: No Status: Chronic Assessment and plan: No acute exacerbation. Patient denies shortness of breath above her norm. Qualifiers: COPD type: unspecified COPD Qualified Code(s): J44.9 - Chronic obstructive pulmonary disease, unspecified (14) PTSD (post-traumatic stress disorder) Current Visit: No Status: Chronic (15) Personality disorder Current Visit: No Status: Chronic - Subjective Interval history: Patient seen and examined. On examination, patient sitting upright in bed watching television. Patient complains of generalized abdominal pain stating her abdomen feels sore. Patient stating her last bowel movement was 2 days ago. Patient states she feels slightly better than yesterday and states that she has been able to walk around the unit without difficulty. - Constitutional Vitals: Temp Pulse Resp BP Pulse Ox 98 F 98 17 137/83 90 L 12/04/16 11:48 12/04/16 11:48 12/04/16 11:48 12/04/16 11:48 12/04/16 11:48 General appearance: Present: A&O X 3, pleasant, no acute distress, answers questions appropriately - Head Head exam: Present: atraumatic, normocephalic - Eye Eye exam: Present: PERRL, conjuntiva pink, sclera anicteric Pupils: Present: PERRL - Neck Neck exam general surgery: Present: supple, trachea midline. Absent: lymphadenopathy - Respiratory Respiratory exam: Present: decreased breath sounds. Absent: accessory muscle use, rales, respiratory distress, rhonchi, wheezes - Cardiovascular Cardiovascular exam: Present: RRR, +S1, +S2. Absent: diastolic murmur, gallop, rubs, systolic murmur - GI/Abdominal GI/Abdominal exam: Present: distended, normal bowel sounds, soft, tenderness ( diffuse), no peritoneal signs - Extremities Exam Extremities exam: Present: warm, radial pulses palpable and symetrical. Absent : calf tenderness, cyanotic, pedal edema - Neurological Exam Neurological exam: Present: alert, CN II-XII intact, normal gait, oriented X3, no focal deficits, strengths equal and symetr throughout. Absent: pronater drift, facial droop, speech deficit - Skin Skin exam: Present: dry, intact, pallor, warm Internal Medicine: Result - Labs CBC & Chem 7: 12/04/16 00:37 12/04/16 00:37 Labs: Short CBC 12/04/16 Range/Units 00:37 WBC 8.2 (4.3-11.1) K/mcL Hgb 9.2 L D (11.5-15.4) g/dL Hct 29.6 L (35.3-44.9) % Plt Count 324 (140-400) K/mcL Neutrophils # 5.7 (1.6-8.9) K/mcL BMP 12/04/16 00:37 Sodium 139 Potassium 3.8 Chloride 108 Carbon Dioxide 24 BUN 13 Creatinine 0.78 Glucose 94 Calcium 7.8 L - ABG Interpretation ABG results: PT/INR, D-dimer PT 12.0 Seconds (9.4-12.1) 12/03/16 14:10 Consult Discharge Plan - Plan Referrals: Lida Perez DO [Primary Care Provider] -
[2016-12-04] MEDS ORDERED: Acetaminophen 325 MG TABLET PO PRN (13:27)
[2016-12-04] MEDS: Gabapentin 100 MG CAPSULE PO SCH ×3 (13:54→20:22)
[2016-12-04] MEDS: *HR* HYDROmorphone (PF) 1 MG/ML SYRINGE IVP PRN (13:55)
[2016-12-04] MEDS: Pantoprazole 40 MG in 0.9 % Sodium Chloride Mini Bag 100 ML IVC SCH ×3 (13:55→20:30)
[2016-12-04] MEDS: Nicotine 21 MG PATCH.TD24 TD SCH (13:55)
[2016-12-04 14:14] LABS: Iron 16 mcg/dL (50-170)
[2016-12-04 14:15] LABS: % Iron Saturation 4 % (15-50); Transferrin 317 mg/dL (180-382)
[2016-12-04] MEDS: clonazePAM 1 MG TABLET PO PRN ×2 (14:16→18:30)
[2016-12-04 14:28] LABS: Ferritin 9 ng/ml (5-204)
[2016-12-04] MEDS ORDERED: SODIUM CHLORIDE/NAHCO3/KCL/PEG 4,000 ML SOLN.RECON PO ONE (17:00)
[2016-12-04] MEDS: *HR* HYDROcodone/Acet 5/325 mg TABLET PO PRN (18:30)
[2016-12-04] MEDS: Ondansetron 4 MG/2 ML VIAL IVP PRN (18:31)
[2016-12-04] MEDS: Mirtazapine 15 MG TABLET PO SCH (20:22)
[2016-12-04] MEDS ORDERED: Pantoprazole 40 MG VIAL IVP SCH (21:30)
[2016-12-05] MEDS: Pantoprazole 40 MG in 0.9 % Sodium Chloride Mini Bag 100 ML IVC SCH ×3 (00:29→13:28)
[2016-12-05] MEDS: *HR* HYDROcodone/Acet 5/325 mg TABLET PO PRN ×2 (01:38→15:01)
[2016-12-05] MEDS: *HR* HYDROmorphone (PF) 1 MG/ML SYRINGE IVP PRN ×3 (03:55→20:30)
[2016-12-05] MEDS: Ondansetron 4 MG/2 ML VIAL IVP PRN (03:58)
[2016-12-05 04:00] LABS: Basophils % 0.6 %; Eosinophils # 0.2 K/mcL (0.0-0.6); Eosinophils % 2.7 %; Hemoglobin 9.7 g/dL (11.5-15.4); Immature Granulocytes % 0.3 % (0-4); Lymphocytes # 0.9 K/mcL (0.6-4.6); Lymphocytes % 12.6 %; Mean Corpuscular HGB Conc 30.3 g/dL (31.6-35.5); Mean Corpuscular Hemoglobin 27.6 pg (28.0-33.3); Mean Corpuscular Volume 91.2 fL (83.0-100.0); Mean Platelet Volume 11.4 fL (9.4-12.4); Monocytes # 0.5 K/mcL (0.0-1.3); Neutrophils # 5.5 K/mcL (1.6-8.9); Platelet Count 401 K/mcL (140-400); Red Blood Count 3.51 M/mcL (3.82-4.97); Segmented Neutrophils % 76.8 %
[2016-12-05] MEDS: Nicotine 2 MG GUM BC PRN ×2 (04:10→17:38)
[2016-12-05] MEDS: Gabapentin 100 MG CAPSULE PO SCH ×3 (10:35→20:29)
[2016-12-05] MEDS: Nicotine 21 MG PATCH.TD24 TD SCH (10:38)
[2016-12-05] MEDS: Budesonide/Formoterol 160/4.5 MDI IH SCH ×2 (10:48→20:37)
--- NOTE | 2016-12-05 11:10 | Anesthesia Evaluation PreOp ---
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: Denies Any Significant HX Other Medical History: Other (Bipolar Anxiety) Anesthesia History: No Prior Anesthetic Complications : No Alcohol Use: none Drug use: none Medications and Allergies Albuterol Sulfate [Proair Hfa] 2 puff IH Q4H PRN 09/01/16 [History] Budesonide/Formoterol 160/4.5 [Symbicort 160/4.5] 2 puff IH BID 09/01/16 [ History] Doxepin [Sinequan] 100 mg PO HS 09/01/16 [History] Duloxetine HCl [Cymbalta] 60 mg PO BID 09/01/16 [History] Gabapentin [Neurontin] 100 mg PO TID 09/01/16 [History] Pantoprazole Sodium [Protonix] 40 mg PO DAILY 09/01/16 [History] Promethazine [Phenergan] 25 mg PO HS 09/01/16 [History] ClonazePAM [Klonopin] 1 mg PO TID PRN 12/03/16 [History] Mirtazapine [Mirtazapine] 15 mg PO HS 12/03/16 [History] Allergies Zolpidem [From Ambien] Allergy (Verified 08/31/16 16:33) Agitated eszopiclone [From Lunesta] Adverse Reaction (Verified 09/01/16 09:48) Gastrointestinal Upset - Meds/Allergy Pre-op Review Medications Reviewed: Yes Allergies Reviewed: Yes Beta Blockers on Current Med List: No Anesthesia Results - Labs 12/05/16 03:10 12/04/16 00:37 - Imaging EKG: report reviewed (Sinus Tach occ PVC) Anesthesia Exam O2 Sat Weight 86.6 kg O2 Sat by Pulse Oximetry 93 O2 Sat by Pulse Oximetry 93 O2 Sat by Pulse Oximetry 94 O2 Sat by Pulse Oximetry 96 O2 Sat by Pulse Oximetry 96 O2 Sat by Pulse Oximetry 93 O2 Sat by Pulse Oximetry 90 Vital Signs Temp Pulse Resp BP Pulse Ox 98.5 F 104 16 92/62 95 12/03/16 13:12 12/03/16 13:12 12/03/16 13:12 12/03/16 13:12 12/03/16 13:12 Height: 5'2 Weight: 190 Lbs NPO (# of Hours): MN Pain Scale: 0 - HEENT Pupil (Motor): Pupils equal, EOMI Mallampati: III Teeth: Missing Oral Opening: Less than or equal to 3 - SPEED BELT SANDER LOC: Oriented SPEED BELT SANDER Motor: Normal RUE, Normal LUE, Normal RLE, Normal LLE, Normal Face SPEED BELT SANDER Sensory: Normal: RUE, LUE, RLE, LLE, Face - Cardiac Rhythm: Regular Murmur: None JVD: No Carotid Bruit: No - Pulmonary Breath Sounds: bilateral Clear Respiratory Effort: Symmetrical Anesthesia Assess/Plan ASA Score: 3 (COPD Anemia) Modified Wendy Scale for Level of Consciousness: Cooperative, oriented, and tranquil Anesthetic Plan: MAC Monitoring Plan: Standard Monitors Recovery Plan: Other (Discussed MAC, agrees to proceed)
[2016-12-05] MEDS ORDERED: 0.9 % Sodium Chloride 1,000 ML IVC SCH (11:30)
--- NOTE | 2016-12-05 11:37 | Anesthesia Evaluation Post Op ---
Date of Encounter: 12/05/16 Time of Encounter: 11:47 - Vital Signs Vital Signs: vss - Lungs Lungs: Wheezes, Rales - Airway Airway: Non-obstructed - Cardiovascular Baseline Rhythm - Mental Status Mental Status: Asleep with brisk response to light stimulation - Pain Pain Scale used: Lina (Faces) - Nausea Vomiting Nausea Vomiting: Not Present - Discharge PostOp Status: Transfer Patient to floor
--- NOTE | 2016-12-05 14:21 | Internal Med Progress Note ---
Date of Encounter: 12/05/16 Time of Encounter: 14:00 - Assessment and plan (1) Upper GI bleed Current Visit: Yes Status: Resolved Assessment and plan: s/p EGD EGD: LA Grade B reflux esophagitis, non bleeding gastric ulcers with no stigmata of bleeding. Colonoscopy: hemorrhoids, stool in entire colon, poor bowel prep. Will d/c Protonix drip and start Protonix 40mg IV q12h, Carafate QID start cardiac diet likely d/c in am As per Dr. Mae patient has large, deep gastric non bleeding ulcers and will need a repeat EGD in 1-2months. (2) Hematemesis Current Visit: No Status: Resolved Qualifiers: Nausea presence: with nausea Qualified Code(s): K92.0 - Hematemesis; R11.0 - Nausea (3) Acute blood loss anemia Current Visit: No Status: Resolved Assessment and plan: H&H low but acceptable no recurrent episodes of bleeding reported since hospitalization will continue to monitor (4) Anxiety Current Visit: No Status: Acute Assessment and plan: continue home medications (5) DVT prophylaxis Current Visit: No Status: Acute Assessment and plan: IPCD (6) COPD (chronic obstructive pulmonary disease) Current Visit: No Status: Chronic Assessment and plan: not in acute exacerbation continue O2 supplementation as needed continue home medications. Qualifiers: COPD type: unspecified COPD Qualified Code(s): J44.9 - Chronic obstructive pulmonary disease, unspecified (7) Chronic pain syndrome Current Visit: No Status: Chronic Assessment and plan: continue home medications (8) Tobacco abuse Current Visit: Yes Status: Acute Assessment and plan: Smoking cessation counseling provided patient not ready to quit at this time nicotine replacement therapy provided - Subjective Interval history: Patient seen and examined at bedside. S/P EGD and Colonoscopy. Noted to be drowsy. Reports of being an every day smoker and requests nicotine gum. EGD: LA Grade B reflux esophagitis, non bleeding gastric ulcers with no stigmata of bleeding. Colonoscopy: hemorrhoids, stool in entire colon, poor bowel prep. - Constitutional Vitals: Temp Pulse Resp BP Pulse Ox 98.1 F 62 20 105/70 93 L 12/05/16 12:01 12/05/16 12:01 12/05/16 12:01 12/05/16 12:01 03/10/17 12:01 General appearance: Present: A&O X 3, morbidly obese, pleasant, no acute distress, answers questions appropriately - Head Head exam: Present: atraumatic, normocephalic - Eye Eye exam: Present: normal appearance, conjuntiva pink, sclera anicteric - Respiratory Respiratory exam: Present: CTAB. Absent: accessory muscle use, rales, rhonchi, wheezes - Cardiovascular Cardiovascular exam: Present: RRR, +S1, +S2. Absent: diastolic murmur, gallop, rubs, systolic murmur - GI/Abdominal GI/Abdominal exam: Present: normal bowel sounds, soft, no peritoneal signs. Absent: distended, tenderness - Extremities Exam Extremities exam: Present: warm, radial pulses palpable and symetrical. Absent : calf tenderness, cyanotic, pedal edema - Neurological Exam Neurological exam: Present: alert, oriented X3 - Psychiatric Psychiatric exam: Present: normal affect, normal mood Internal Medicine: Result - Labs CBC & Chem 7: 12/05/16 03:10 12/04/16 00:37 Labs: Short CBC 12/05/16 Range/Units 03:10 WBC 7.1 (4.3-11.1) K/mcL Hgb 9.7 L (11.5-15.4) g/dL Hct 32.0 L (35.3-44.9) % Plt Count 401 H (140-400) K/mcL Neutrophils # 5.5 (1.6-8.9) K/mcL - ABG Interpretation ABG results: PT/INR, D-dimer PT 12.0 Seconds (9.4-12.1) 12/03/16 14:10 Consult Discharge Plan - Plan Referrals: Lida Perez DO [Primary Care Provider] -
[2016-12-05] MEDS: Sucralfate 1 GM TABLET PO SCH ×2 (15:01→20:29)
[2016-12-05] MEDS: clonazePAM 1 MG TABLET PO PRN (15:41)
[2016-12-05] MEDS: Pantoprazole 40 MG VIAL IVP SCH (17:37)
[2016-12-05] MEDS: Mirtazapine 15 MG TABLET PO SCH (20:29)
[2016-12-06] MEDS: *HR* HYDROcodone/Acet 5/325 mg TABLET PO PRN ×3 (02:14→08:24)
[2016-12-06] MEDS: clonazePAM 1 MG TABLET PO PRN (02:14)
[2016-12-06 05:10] LABS: Basophils % 0.3 %; Eosinophils # 0.1 K/mcL (0.0-0.6); Eosinophils % 1.8 %; Hematocrit 26.1 % (35.3-44.9); Immature Granulocytes % 0.4 % (0-4); Lymphocytes # 0.6 K/mcL (0.6-4.6); Lymphocytes % 8.3 %; Mean Corpuscular HGB Conc 30.3 g/dL (31.6-35.5); Mean Corpuscular Hemoglobin 27.4 pg (28.0-33.3); Mean Corpuscular Volume 90.6 fL (83.0-100.0); Mean Platelet Volume 11.4 fL (9.4-12.4); Monocytes # 0.6 K/mcL (0.0-1.3); Monocytes % 8.3 %; Neutrophils # 5.7 K/mcL (1.6-8.9); Platelet Count 327 K/mcL (140-400); Red Blood Count 2.88 M/mcL (3.82-4.97); Red Cell Distribution Width 15.6 % (11.5-14.5); Segmented Neutrophils % 80.9 %
[2016-12-06 05:24] LABS: Hemoglobin 7.9 g/dL (11.5-15.4)
[2016-12-06 05:28] LABS: BUN/Creatinine Ratio 9 (6-26); Blood Urea Nitrogen 7 mg/dL (7-20); Calcium 8.2 mg/dL (8.6-10.8); Carbon Dioxide 26 mEq/L (19-29); Chloride 105 mEq/L (98-109); Glucose 110 mg/dL (70-99); Magnesium 1.7 mg/dL (1.6-2.6); Osmolality,Calculated 285 (280-300); Phosphorous 4.1 mg/dL (2.3-4.7); Sodium 138 mEq/L (136-145); eGFR For African Americans > 60 (> 60); eGFR For Non-African Americans > 60 (> 60)
[2016-12-06] MEDS: Pantoprazole 40 MG VIAL IVP SCH (06:00)
[2016-12-06] MEDS: Nicotine 2 MG GUM BC PRN ×2 (06:01→11:25)
[2016-12-06] MEDS: Budesonide/Formoterol 160/4.5 MDI IH SCH (08:03)
[2016-12-06] MEDS: Nicotine 21 MG PATCH.TD24 TD SCH (08:15)
[2016-12-06] MEDS: Sucralfate 1 GM TABLET PO SCH ×2 (08:16→11:25)
[2016-12-06] MEDS: Gabapentin 100 MG CAPSULE PO SCH (08:16)
[2016-12-06 09:00] LABS: Hemoglobin 8.5 g/dL (11.5-15.4)
[2016-12-06 11:53] VITALS: BP 94/58
--- NOTE | 2016-12-06 14:23 | Discharge Summary ---
Date of Encounter: 12/06/16 Time of Encounter: 14:20 - Discharge Diagnosis (1) Acute blood loss anemia Priority: Primary Status: Resolved (2) Upper GI bleed Priority: Primary Status: Resolved (3) Anxiety Priority: Secondary Status: Chronic (4) DVT prophylaxis Priority: Secondary Status: Chronic (5) COPD (chronic obstructive pulmonary disease) Priority: Secondary Status: Chronic Qualifiers: COPD type: unspecified COPD Qualified Code(s): J44.9 - Chronic obstructive pulmonary disease, unspecified (6) Chronic pain syndrome Priority: Secondary Status: Chronic (7) Tobacco abuse Priority: Secondary Status: Chronic - Discharge Medications Prescriptions: Pantoprazole Sodium [Protonix] 40 mg PO BID #60 tablet. Sucralfate [Carafate] 1 gm PO QIDAC #60 tablet Home Medications: Albuterol Sulfate [Proair Hfa] 2 puff IH Q4H PRN 09/01/16 [History] Budesonide/Formoterol 160/4.5 [Symbicort 160/4.5] 2 puff IH BID 09/01/16 [ History] Doxepin [Sinequan] 100 mg PO HS 09/01/16 [History] Duloxetine HCl [Cymbalta] 60 mg PO BID 09/01/16 [History] Gabapentin [Neurontin] 100 mg PO TID 09/01/16 [History] Promethazine [Phenergan] 25 mg PO HS 09/01/16 [History] ClonazePAM [Klonopin] 1 mg PO TID PRN 12/03/16 [History] Mirtazapine 15 mg PO HS 12/03/16 [History] Pantoprazole Sodium [Protonix] 40 mg PO BID #60 tablet. 12/06/16 [Rx] Sucralfate [Carafate] 1 gm PO QIDAC #60 tablet 12/06/16 [Rx] Allergies/Adverse Reactions: Allergies Zolpidem [From Ambien] Allergy (Verified 08/31/16 16:33) Agitated eszopiclone [From Lunesta] Adverse Reaction (Verified 09/01/16 09:48) Gastrointestinal Upset Date of admission: 12/04/16 13:51 Primary care physician: Ldia Perez DO Consults: GI: Dr. Mae Discharging clinician: Alvina Fowler Anticipated date of discharge: 12/06/16 - Patient Status Disposition: Home, Self-Care Condition: Good Functional capacity at discharge: independent ambulation Overall status at discharge: patient is back to baseline - Discharge Instructions Follow Up With: Lida Perez DO [Primary Care Provider] - Additional Instructions: Please follow-up with your primary care physician within 5 days after discharge from the hospital. Please follow up with gastroenterology within 1-2 weeks after discharge from the hospital. You home dose of Protonix has been increased to twice a day, please take this medication as prescribed. Carafate has been added to her home medication. Please take this medication 3- 4 times a day. Please continue to take all your medications as prescribed by her primary care physician. Please seek medical help immediately if you have another episode of acute bleeding. - Diet and Activity Activity: resume usual activities as tolerated Diet: low salt diet Hospital course: Ms. Camp is a 61 year old female with history of COPD, bipolar disorder, anxiety, and multiple episodes of GI bleeding with anemia presented to the emergency department with complaints of weakness after several days of dark stools and coffee-ground emesis. Upon arrival patient was noted to have acute blood loss anemia requiring 2 units of PRBC transfusion. She was further evaluated by GI and underwent EGD and colonoscopy. EGD showed grade B reflux esophagitis with nonbleeding gastric ulcers and colonoscopy was inconclusive due to poor bowel prep. As per GI patient is recommended to continue PPI twice a day along with Carafate 3-4 times a day. She did not have any recurrent episodes of bleeding since her hospitalization. She is able to tolerate by mouth intake well. At this time she is hemodynamically stable and will be discharged home with follow-up with GI and primary care physician. Patient demonstrates understanding of her diagnosis and agrees with the discharge care plan. - Time Spent with Patient Total time spent providing and/or coordinating discharge services: Less than 30 minutes - Constitutional Vitals: Temp Pulse Resp BP Pulse Ox 97.9 F 100 18 94/58 98 12/06/16 11:50 12/06/16 11:50 12/06/16 11:50 12/06/16 11:50 12/06/16 11:50 General appearance: Present: A&O X 3, morbidly obese, pleasant, no acute distress, answers questions appropriately - Head Head exam: Present: atraumatic, normocephalic - Eye Eye exam: Present: PERRL, conjuntiva pink, sclera anicteric - Respiratory Respiratory exam: Present: CTAB. Absent: accessory muscle use, rales, rhonchi, wheezes - Cardiovascular Cardiovascular exam: Present: RRR, +S1, +S2. Absent: diastolic murmur, gallop, rubs, systolic murmur - GI/Abdominal GI/Abdominal exam: Present: normal bowel sounds, soft, no peritoneal signs. Absent: distended, tenderness - Extremities Exam Extremities exam: Present: warm, radial pulses palpable and symetrical. Absent : calf tenderness, cyanotic, pedal edema - Neurological Exam Neurological exam: Present: alert, oriented X3 - Psychiatric Psychiatric exam: Present: normal affect, normal mood
[2016-12-06] MEDS ORDERED: Lidocaine -MPF 2% 5 ML VIAL INFILT ONE (14:43)
[2016-12-06] MEDS ORDERED: *HR* Propofol 200 MG/20 ML VIAL IVP ONE (14:43)
== END 2016-12-06 14:44 | disposition home or self-care (01) | DRG 378 ==
LOC: EMEROO 13:07 → 3BNU 13:07 → SUATTDRO 12-04 13:51
PROVIDERS: ADMIT Internal Medicine; ATTEND Internal Medicine
PROC: ENDOEBX (2016-12-05 12:10)

== ENCOUNTER 2016-12-10 16:33 | Observation (INO) ==
[2016-12-10] MEDS ORDERED: 0.9 % Sodium Chloride 1,000 ML IVC ONE (17:42)
[2016-12-10] MEDS ORDERED: Pantoprazole 80 MG in 0.9 % Sodium Chloride 50 ML IVPB ONE (17:42)
--- NOTE | 2016-12-10 17:58 | Emergency Department Note ---
Disposition Clinical Impression: GI bleed Qualifiers: GI bleed type/associated pathology: unspecified gastrointestinal hemorrhage type Qualified Code(s): K92.2 - Gastrointestinal hemorrhage, unspecified Disposition: Still a Patient Referrals: Lida Perez DO [Primary Care Provider] - Forms: ED Satisfaction Letter Time of Disposition: 19:27 GI Bleed HPI - General Chief complaint: ED GI Bleed Stated complaint: gi bleed Time Seen by Provider: 12/10/16 16:40 Source: patient, EMS Limitations: no limitations Nursing Notes Reviewed: Yes Vital Signs Reviewed: Yes - History of Present Illness HPI Narrative: 61-year-old female with history of GI bleed with gastritis, presents now with melena, also episodes of coffee-ground emesis for the last few days. She is a history of the same, and was recently evaluated at [facility] for an upper GI bleed with an upper endoscopy 4 days ago. She was discharged 4 days ago and has had increased weakness, increased episodes of coffee-ground emesis. She has actually been dealing with GI bleeds for the last several years. Unclear etiology with a told this was gastritis. She does not take any blood thinners or anti-inflammatory medications. Pt Subjective Complaint: blood streaked emesis, coffee ground emesis Onset (ago): day(s) (3) Severity: none Improves with: nothing Worsens with: nothing Context: history of GI bleed Associated symptoms: Reports: abdominal pain, nausea. Denies: headaches, other bleeding source, shortness of breath, syncope/near-syncope - Related Data Home Medications Medication Instructions Recorded Confirmed Albuterol Sulfate [Proair Hfa] 2 puff IH Q4H PRN 09/01/16 12/03/16 Budesonide/Formoterol 160/4.5 2 puff IH BID 09/01/16 12/03/16 [Symbicort 160/4.5] Doxepin [Sinequan] 100 mg PO HS 09/01/16 12/03/16 Duloxetine HCl [Cymbalta] 60 mg PO BID 09/01/16 12/03/16 Gabapentin [Neurontin] 100 mg PO TID 09/01/16 12/03/16 Promethazine [Phenergan] 25 mg PO HS 09/01/16 12/03/16 ClonazePAM [Klonopin] 1 mg PO TID PRN 12/03/16 12/03/16 Mirtazapine 15 mg PO HS 12/03/16 12/03/16 Previous Rx's Medication Instructions Recorded Pantoprazole Sodium [Protonix] 40 mg PO BID #60 tablet. 12/06/16 Sucralfate [Carafate] 1 gm PO QIDAC #60 tablet 12/06/16 Allergies Allergy/AdvReac Type Severity Reaction Status Date / Time Zolpidem [From Ambien] Allergy Agitated Verified 08/31/16 16:33 eszopiclone [From Lunesta] AdvReac Gastrointestinal Verified 09/01/16 09:48 Upset All systems ED: reviewed and negative except as stated. Constitutional: Denies: fever, chills Cardiovascular: Denies: chest pain, palpitations Respiratory: Denies: cough, dyspnea Gastrointestinal: Reports: as per HPI, abdominal pain, nausea, vomiting, hematemesis, melena, hematochezia Genitourinary: Denies: urgency, dysuria Musculoskeletal: Denies: back pain, neck pain Integumentary: Denies: rash Past Medical History - Past Medical History Attestation: Yes The following information was validated with the patient. 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 Back: normal inspection, no tenderness to palpation Neuro: A&O3, no gross motor or sensory deficits bilaterally Skin: No rashes, skin warm, dry, intact - General Limitations: no limitations General appearance: alert Course Course Narrative: 61-year-old female with a GI bleed street, presents with the same hematemesis, melena and coffee-ground emesis initial GI workup started, patient will be signed out to the night team Dr. Araiza and Dr. Sopchoppy Vital Signs Temperature 98.3 F 12/10/16 16:36 Pulse Rate 107 12/10/16 16:36 Respiratory Rate 18 12/10/16 16:36 Blood Pressure 105/73 12/10/16 16:36 O2 Sat by Pulse Oximetry 94 L 12/10/16 16:36 Temperature 98.3 F 12/10/16 16:36 Pulse Rate 99 12/10/16 18:29 Respiratory Rate 16 12/10/16 18:29 Blood Pressure 115/89 12/10/16 18:29 O2 Sat by Pulse Oximetry 95 12/10/16 18:29 Oxygen Delivery Oxygen Delivery Room Air GI Bleed - Lab Data Result diagrams: 12/10/16 18:56 Lab Results 12/10/16 Range/Units 18:56 WBC 7.8 (4.3-11.1) K/mcL RBC 2.82 L (3.82-4.97) M/mcL Hgb 7.6 L (11.5-15.4) g/dL Hct 24.6 L (35.3-44.9) % MCV 87.2 (83.0-100.0) fL MCH 27.0 L (28.0-33.3) pg MCHC 30.9 L (31.6-35.5) g/dL RDW 15.5 H (11.5-14.5) % Plt Count 429 H (140-400) K/mcL MPV 10.7 (9.4-12.4) fL Immature Gran % 0.5 (0-4) % Seg Neutrophils % 76.9 % Lymphocytes % 12.3 % Monocytes % 7.6 % Eosinophils % 2.3 % Basophils % 0.4 % Neutrophils # 6.0 (1.6-8.9) K/mcL Lymphocytes # 1.0 (0.6-4.6) K/mcL Monocytes # 0.6 (0.0-1.3) K/mcL Eosinophils # 0.2 (0.0-0.6) K/mcL Basophils # 0.0 (0.0-0.2) K/mcL S.B.A.R. - S.B.A.R. Situation: Demographics, MOA Background: Presenting Complaint, Relevant PMH, Meds, & Allergies Assessment: Vital Signs, Course and respsone to treatment, Exam Concerns, Patient/Family Expectation, Pertinant Lab Results, Outstanding Labs Recommendation: Barrier(s) to disposition, Recommendation based on pending studies, treatments, or consults Amira Report Given to: Riky Collier Repor Time: 19:27 Attestation Statement - Attestation Attestation: I examined this patient and my medical decision-making was reviewed with the Resident Physician. I agree with the documented findings, disposition and treatment plan as described except to the extent set forth below. Complains of abd pain w coffee ground emesis, recent D/C after admission for GIB. H/o ulcers, erosive esophagitis. Mildly tachycardic w normal BP, normal mental status, soft abdomen without guarding.
[2016-12-10] MEDS ORDERED: Ondansetron 4 MG/2 ML VIAL IVP ONE (18:19)
[2016-12-10] MEDS ORDERED: *HR* Promethazine 25 MG/ML VIAL IVP ONE (19:12)
[2016-12-10 19:14] LABS: Basophils % 0.4 %; Eosinophils # 0.2 K/mcL (0.0-0.6); Eosinophils % 2.3 %; Hematocrit 24.6 % (35.3-44.9); Hemoglobin 7.6 g/dL (11.5-15.4); Immature Granulocytes % 0.5 % (0-4); Lymphocytes % 12.3 %; Mean Corpuscular HGB Conc 30.9 g/dL (31.6-35.5); Mean Corpuscular Volume 87.2 fL (83.0-100.0); Mean Platelet Volume 10.7 fL (9.4-12.4); Monocytes # 0.6 K/mcL (0.0-1.3); Monocytes % 7.6 %; Platelet Count 429 K/mcL (140-400); Red Blood Count 2.82 M/mcL (3.82-4.97); Red Cell Distribution Width 15.5 % (11.5-14.5); Segmented Neutrophils % 76.9 %
--- NOTE | 2016-12-10 19:23 | Emergency Department Note ---
Disposition Clinical Impression: GI bleed Qualifiers: GI bleed type/associated pathology: unspecified gastrointestinal hemorrhage type Qualified Code(s): K92.2 - Gastrointestinal hemorrhage, unspecified Anemia Qualifiers: Anemia type: unspecified type Qualified Code(s): D64.9 - Anemia, unspecified Disposition: Admitted As Inpatient Condition: Fair Referrals: Lida Perez DO [Primary Care Provider] - Forms: ED Satisfaction Letter Time of Disposition: 21:40 GI Bleed HPI - General Chief complaint: ED GI Bleed Stated complaint: gi bleed Time Seen by Provider: 12/10/16 19:11 Source: patient, EMS Mode of arrival: ambulatory Limitations: no limitations Nursing Notes Reviewed: Yes Vital Signs Reviewed: Yes - History of Present Illness HPI Narrative: Patient is a 61-year-old female with past medical history of multiple upper and lower GI bleeds in the past including most recent GI bleed 4 days ago that required 2 units of transfusion RBCs. She presents today due to coffee-ground emesis, dark stools. She also feels generally weak, short of breath. She is actively nauseous and gagging during my exam. She states that she feels exactly how she felt during all previous episodes of GI bleeds. She had a recent endoscopy that showed ulcers. She has also had erosions in the esophagus ablated in the past. Currently denies any chest pain, lightheadedness , dizziness, syncope. - Related Data Home Medications Medication Instructions Recorded Confirmed Albuterol Sulfate [Proair Hfa] 2 puff IH Q4H PRN 09/01/16 12/10/16 Budesonide/Formoterol 160/4.5 2 puff IH BID 09/01/16 12/10/16 [Symbicort 160/4.5] Doxepin [Sinequan] 100 mg PO HS 09/01/16 12/10/16 Duloxetine HCl [Cymbalta] 60 mg PO BID 09/01/16 12/10/16 Gabapentin [Neurontin] 100 mg PO TID 09/01/16 12/10/16 Promethazine [Phenergan] 25 mg PO HS 09/01/16 12/10/16 ClonazePAM [Klonopin] 1 mg PO TID PRN 12/03/16 12/10/16 Mirtazapine 15 mg PO HS 12/03/16 12/10/16 Previous Rx's Medication Instructions Recorded Pantoprazole Sodium [Protonix] 40 mg PO BID #60 tablet. 12/06/16 Sucralfate [Carafate] 1 gm PO QIDAC #60 tablet 12/06/16 Allergies Allergy/AdvReac Type Severity Reaction Status Date / Time Zolpidem [From Ambien] Allergy Agitated Verified 08/31/16 16:33 eszopiclone [From Lunesta] AdvReac Gastrointestinal Verified 09/01/16 09:48 Upset Constitutional: Denies: fever Eyes: Denies: eye pain ENT ED: Denies: ear pain, throat pain Cardiovascular: Denies: chest pain, palpitations Respiratory: Reports: dyspnea. Denies: cough, wheezes, hemoptysis Gastrointestinal: Reports: abdominal pain, nausea, vomiting, hematemesis, melena Genitourinary: Denies: urgency, dysuria, frequency, hematuria Musculoskeletal: Denies: back pain, neck pain Integumentary: Denies: rash, abrasion Neurological: Denies: headache, weakness, numbness, paresthesias Psychiatric: Denies: anxiety, depression Endocrine: Reports: fatigue. Denies: polydipsia, polyuria Past Medical History - Past Medical History Attestation: Yes The following information was validated with the patient. Medical history: Reports: COPD, other Surgical history: Reports: cholecystectomy, hysterectomy, other Psychiatric history: Reports: anxiety, bipolar, depression, PTSD, previous psychiatric hospitalization [employer]ERTY [employer]LY[employer] history: Reports: non-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 - Social History Smoking Status: Current every day smoker Smokeless Tobacco Status: No Alcohol use: Reports: none Drug use: Reports: none Physical Exam - General Limitations: no limitations General appearance: alert, other (Appears unwell, pale, actively nauseous on exam) - Head Head exam: atraumatic, normocephalic, normal inspection - Eye Eye exam: Present: normal appearance, PERRL, EOMI - ENT ENT exam: normal exam, normal oropharynx, mucous membranes dry - Neck Neck exam: Present: normal inspection, full ROM, trachea midline - Chest Chest inspection: Present: normal inspection, symmetric chest wall rise - Respiratory Respiratory exam: Present: normal lung sounds bilaterally - Cardiovascular Cardiovascular exam: Present: regular rate, normal rhythm, normal heart sounds - Abdominal Exam Abdominal exam: Present: soft, tenderness (Medicine epigastric region, moderate in intensity ), guarding (Voluntary guarding in the epigastric region ). Absent : distention, rebound, rigidity, Montalvo's sign, Rovsing's sign - Extremities Exam Extremities exam: Present: normal inspection, full ROM. Absent: tenderness, pedal edema - Back Exam Back exam: Present: normal inspection, full ROM. Absent: tenderness - Neurological Exam Neurological exam: Present: alert, oriented X3 - Psychiatric Psychiatric exam: Present: normal affect, normal mood - Skin Skin exam: Present: warm, dry, intact, normal color Course Course Narrative: Patient probably tachycardic on my exam, otherwise, the rest of vitals were within normal limits. Physical exam shows an actively nauseous patient is pale , moderate intensity epigastric pain. Labs currently running. Patient is being actively views with fluids, has been given Zofran and is still nauseous, we will give her Phenergan. Likely we will have to admit due to dehydration, intractable nausea and vomiting, possible anemia and transfusions depending on blood work. Blood pressure remains stable at this time. 21:12 CBC showed anemia at 7.9. Patient's hemoglobin on the 11 (4 days ago) was a 8.5. Patient's only nausea. Will admit for anemia, suspected upper GI versus lower GI bleed, intractable N/V. 21:[address] Marino. He requested transfusion 2 PRBCs. Vital Signs Temperature 98.3 F 12/10/16 16:36 Pulse Rate 107 12/10/16 16:36 Respiratory Rate 18 12/10/16 16:36 Blood Pressure 105/73 12/10/16 16:36 O2 Sat by Pulse Oximetry 94 L 12/10/16 16:36 Temperature 98.3 F 12/10/16 16:36 Pulse Rate 111 12/10/16 21:14 Respiratory Rate 18 12/10/16 21:14 Blood Pressure 155/91 12/10/16 21:14 O2 Sat by Pulse Oximetry 94 L 12/10/16 21:14 Oxygen Delivery Oxygen Delivery Room Air GI Bleed - [facility] Narrative Medical decision making narrative: Patient probably tachycardic on my exam, otherwise, the rest of vitals were within normal limits. Physical exam shows an actively nauseous patient is pale , moderate intensity epigastric pain. Labs currently running. Patient is being actively views with fluids, has been given Zofran and is still nauseous, we will give her Phenergan. Likely we will have to admit due to dehydration, intractable nausea and vomiting, possible anemia and transfusions depending on blood work. Blood pressure remains stable at this time. 21:12 CBC showed anemia at 7.9. Patient's hemoglobin on the 11th (4 days ago) was a 8.5. Patient's only nausea. Will admit for anemia, suspected upper GI versus lower GI bleed, intractable N/V. 21:[address] Marino. He requested transfusion 2 PRBCs. - Lab Data Lab results reviewed: Yes I reviewed the patient's lab results. Result diagrams: 12/10/16 18:56 12/10/16 18:57 Lab Results 12/10/16 12/10/16 12/10/16 Range/Units 18:56 18:57 18:57 WBC 7.8 (4.3-11.1) K/mcL RBC 2.82 L (3.82-4.97) M/mcL Hgb 7.6 L (11.5-15.4) g/dL Hct 24.6 L (35.3-44.9) % MCV 87.2 (83.0-100.0) fL MCH 27.0 L (28.0-33.3) pg MCHC 30.9 L (31.6-35.5) g/dL RDW 15.5 H (11.5-14.5) % Plt Count 429 H (140-400) K/mcL MPV 10.7 (9.4-12.4) fL Immature Gran % 0.5 (0-4) % Seg Neutrophils % 76.9 % Lymphocytes % 12.3 % Monocytes % 7.6 % Eosinophils % 2.3 % Basophils % 0.4 % Neutrophils # 6.0 (1.6-8.9) K/mcL Lymphocytes # 1.0 (0.6-4.6) K/mcL Monocytes # 0.6 (0.0-1.3) K/mcL Eosinophils # 0.2 (0.0-0.6) K/mcL Basophils # 0.0 (0.0-0.2) K/mcL Sodium 141 (136-145) mEq/L Potassium 3.2 L (3.5-4.5) mEq/L Chloride 108 (98-109) mEq/L Carbon Dioxide 25 (19-29) mEq/L BUN 8 (7-20) mg/dL Creatinine 0.74 (0.57-1.11) mg/dL Est GFR ( Amer) > 60 (> 60) Est GFR (Non-Af Amer) > 60 (> 60) BUN/Creatinine Ratio 11 (6-26) Glucose 93 (70-99) mg/dL Calculated Osmolality 290 (280-300) Calcium 8.2 L (8.6-10.8) mg/dL Blood Type A POSITIVE Antibody Screen NEGATIVE Crossmatch See Detail - EKG Data EKG attestation: Yes I reviewed and interpreted this EKG. EKG results narrative: December 10/2017 at 17:59. Sinus tachycardia. Rate 100. Here interval 174. QRS 99. QTC 397. Normal axis. T-wave inversions in V1, V2. No acute ST elevation or depression. Critical Care Time Critical Care Time: Yes Total Critical Care Time: 40 Attestation: Critical care performed: Time is exclusive of separately billable procedures. Time includes: direct patient care, patient reassessment, coordination of patient care, interpretation of data (laboratory data, radiology data, and respiratory data), review of patient's medical records, medical consultation and documentation of patient care. Procedures included in critical care time: Procedures excluded from critical care time: S.B.A.R. - S.B.A.R. Situation: Demographics, MOA Background: Presenting Complaint, Relevant PMH, Meds, & Allergies Assessment: Vital Signs, Course and respsone to treatment, Exam Concerns, Patient/Family Expectation, Pertinant Lab Results, Outstanding Labs Recommendation: Barrier(s) to disposition, Recommendation based on pending studies, treatments, or consults S.B.A.R. Report Given to: Dr. Marino SJose Repor Time: 21:40 Attestation Statement - Attestation Attestation: I, Kev Recio MD, personally performed a history and physical exam of the patient and discussed their management with the resident. I reviewed the resident's note and agree with the documented findings, medical decision making , and plan of care. This patient was signed out at shift change from Dr. Hummel and Dr. Brown. Please refer to their notes for complete details of history and physical examination. This patient is a 61-year-old female with history of recurrent GI bleeds. She was just admitted to the hospital last week for GI bleed and received blood transfusions. She was discharged 4 days ago and states that ever since being discharged she has continued to have nausea and crampy abdominal pain. She has continued to have melanotic stools and started vomiting today with several episodes of black coffee ground emesis. On examination patient is a well-developed well-nourished female in no acute distress. She is alert and oriented 3. There is no cyanosis or diaphoresis. Breath sounds clear and equal bilaterally. Heart regular rate and rhythm. Abdomen is soft with increased bowel sounds. Mild diffuse tenderness primarily in the epigastric region. Labs reviewed. Hemoglobin 7.6. We will consult the hospitalist for admission. The hospitalist, Dr. Marino, was consulted and accepted admission of the patient. He requested that we go ahead and order 2 units of packed red blood cells.
[2016-12-10 20:25] LABS: BUN/Creatinine Ratio 11 (6-26); Blood Urea Nitrogen 8 mg/dL (7-20); Calcium 8.2 mg/dL (8.6-10.8); Carbon Dioxide 25 mEq/L (19-29); Chloride 108 mEq/L (98-109); Glucose 93 mg/dL (70-99); Osmolality,Calculated 290 (280-300); Potassium 3.2 mEq/L (3.5-4.5); Sodium 141 mEq/L (136-145); eGFR For African Americans > 60 (> 60); eGFR For Non-African Americans > 60 (> 60)
[2016-12-10] MEDS ORDERED: *HR* HYDROmorphone (PF) 1 MG/ML SYRINGE IVP ONE (21:39)
[2016-12-10] MEDS ORDERED: Naloxone 0.4 MG/ML INJ IVP PRN (22:45)
--- NOTE | 2016-12-10 22:58 | Internal Med History&Physical ---
<Mane Sewell - Last Filed: 12/10/16 23:37> Date of Encounter: 12/10/16 Time of Encounter: 22:20 Assessment and Plan (1) Upper GI bleed Status: Resolved Patient presents with description of coffee-ground emesis, melena, sticky and loose stool. Continued nausea and vomiting as well as exertional fatigue, shortness of breath, orthostatic lightheadedness. All of which are concerning for continued upper gastrointestinal bleed following upper endoscopy on 12/05/16 that showed ulcers. In order to assist patient nausea will prescribe metoclopramide, ondansetron, promethazine, and octreotide Patient abdominal pain we will give 0.5 mg Dilaudid when necessary We will obtain KUB to assess for air under patient diaphragm Transfusion 2 units PRBC Normal saline at 100 mL an hour We will obtain orthostatic vitals Continue to monitor with telemetry and continuous pulse oximetry We will consult gastroenterology for potential EGD (2) Anemia Status: Acute Evaluating patient documented hemoglobin over the last 3 years, it appears that there is a certain chronicity to her anemia. She is currently symptomatic indicating that it is lower than her normal, but outside for a couple episodes of normal hemoglobin she has consistently had hemoglobins around 9. In discussion with the patient she had previously been seen a precipitator supervisor who had been giving her IV iron periodically. The patient is unable to explain what the circumstance was that required IV iron, the lab studies obtained 1 week ago indicate that she is iron deficient. The root cause of this deficiency is unclear and might be nutritional versus malabsorption with her chronic gastritis. Likely patient should get some IV iron prior to discharge as it is unclear how compliant patient is, but will give blood transfusions now due to symptomatic nature patient anemia She will likely require a hematology consult/follow-up as outpatient Qualifiers: Anemia type: unspecified type Qualified Code(s): D64.9 - Anemia, unspecified (3) COPD (chronic obstructive pulmonary disease) Status: Chronic We will continue patient home inhalers - albuterol and budesonide/formoterol Qualifiers: COPD type: emphysema Emphysema type: unspecified Qualified Code(s): J43.9 - Emphysema, unspecified (4) DVT prophylaxis Status: Acute We will hold chemical prophylaxis due to concern of current GI bleed Pneumatic compression devices Internal Medicine - H&P: HPI Chief complaint: continued exertional dyspnea, nausea/vomiting, and coffee- ground emesis Admitted From: Home Plans for Post Hospital Care: Home History of present illness: Ms. Camp is a 61 year old female with prior medical history significant for COPD, esophagitis, peptic ulcer disease, anxiety, bipolar, PTSD, and chronic anemia presented Addie today after one episode of coffee-ground emesis along with exertional dyspnea, fatigue, nausea/vomiting that have continued or worsened since undergoing upper and lower endoscopy on 12/05/16. She states that earlier today she had one episode of coffee-ground emesis that all those since have been bilious/ascitic. She states that she has difficulty with mild exertion such as walking across a room and that it causes her fatigue and shortness of breath. He states this began beginning of the month (about 2 weeks ago) that has not gotten better since undergoing EGD last week. In the EGD she was found to have gastric ulcers and chronic gastritis without H. pylori. In this time she also admits to having a severe abdominal pain that she rates as 9/10 in severity and feels like an ache or twisting of her insides. This pain is exacerbated by touch and palpation, especially in the epigastric region. She also states that she has continued to have melanotic stool that is sticky and loose in character. Past Med Surg Social Fam HX - Past Medical History Medical history: COPD, other Psychiatric history: anxiety, bipolar, depression, PTSD, previous psychiatric hospitalization - Past Surgical History Surgical History: cholecystectomy, hysterectomy, other - Social History Smoking Status: Current every day smoker Smokeless Tobacco Status: No Alcohol use: none Drug use: none - Family History Mother Adopted: No Family Member Ethnicity: Non- Living Status: Hx Family Cardiac Disorders: Yes (NE) Hx Family Respiratory Disorders: Yes (COPD) Hx Family Cancer: Yes (Cervical) Hx Family GI Disorders: No Hx Family Endocrine Disorder: Yes (DM) Hx Family Neuromuscular Disorders: No Hx Family Neurologic Disorders: No Hx Family HEENT Disorders: No Hx Family Autoimmune Disorders: No Father Living Status: Hx Family Cardiac Disorders: No Hx Family Respiratory Disorders: No Hx Family Cancer: Yes (Throat) Hx Family Endocrine Disorder: Yes (DM) Internal Medicine - H&P: Meds Albuterol Sulfate [Proair Hfa] 2 puff IH Q4H PRN 09/01/16 [History] Budesonide/Formoterol 160/4.5 [Symbicort 160/4.5] 2 puff IH BID 09/01/16 [ History] Doxepin [Sinequan] 100 mg PO HS 09/01/16 [History] Duloxetine HCl [Cymbalta] 60 mg PO BID 09/01/16 [History] Gabapentin [Neurontin] 100 mg PO TID 09/01/16 [History] Promethazine [Phenergan] 25 mg PO HS 09/01/16 [History] Mirtazapine 15 mg PO HS 12/03/16 [History] Sucralfate [Carafate] 1 gm PO QIDAC #60 tablet 12/06/16 [Rx] Acetaminophen [Tylenol] 650 mg PO Q6HR PRN #0 tablet 12/12/16 [Rx] ClonazePAM [Klonopin] 1 mg PO BID PRN #0 12/12/16 [Rx] Lansoprazole [Prevacid] 30 mg PO BIDAC #90 capsule.dr 12/12/16 [Rx] Levofloxacin [Levaquin] 250 mg PO DAILY #2 tablet 12/12/16 [Rx] Nicotine Patch [Nicoderm] 14 mg TD DAILY #30 patch.td24 12/12/16 [Rx] Allergies Zolpidem [From Ambien] Allergy (Verified 08/31/16 16:33) Agitated eszopiclone [From Lunesta] Adverse Reaction (Verified 09/01/16 09:48) Gastrointestinal Upset - Constitutional Constitutional: fatigue, weakness, no anorexia, no fever(s), no night sweats - EENT Eyes: no change in vision, no diplopia, no other visual disturbances Nose, mouth and throat: dry mouth, no epistaxis, no sore throat - Cardiovascular Cardiovascular ROS IM: dyspnea on exertion, lightheadedness, no chest pain, no diaphoresis, no edema, no orthopnea, no palpitations - Respiratory Respiratory: dyspnea on exertion, no cough, no dyspnea, no hemoptysis, no pain on inspiration, no chest congestion - Gastrointestinal Gastrointestinal: abdominal pain, change in bowel habits, change in stool character, coffee ground emesis, diarrhea, melena, nausea, vomiting, no constipation, no hematemesis, no hematochezia - Genitourinary Genitourinary: no dysuria, no hematuria - Integumentary Integumentary IM: no pruritus, no rash, no jaundice - Neurological Neurological ROS: weakness, no confusion, no dizziness, no frequent falls, no headache(s) - Constitutional Vitals: Temp Pulse Resp BP Pulse Ox 98.3 F 111 18 130/105 94 L 12/10/16 16:36 12/10/16 21:14 12/10/16 22:36 12/10/16 22:36 12/10/16 21:14 Exam: General: Cooperative, pleasant, mild distress, alert and oriented 3, answers questions appropriately Head: Normocephalic, atraumatic Eye: Conjunctival pallor appreciated, sclera anicteric, EOMI, PERRL Neck: Supple, trachea midline, mucous membranes dry Respiratory: No accessory muscle usage, clear to auscultation bilaterally, no wheezes/rhonchi/rales appreciated Cardiovascular: Tachycardia, regular rhythm, S1 and S2 present, no murmurs/rubs/ gallops/clicks appreciated GI/abdominal: Nondistended, exquisite tenderness to palpation in epigastric and right upper quadrant, soft, normal bowel sounds, no peritoneal signs Extremities: No calf tenderness, noncyanotic, no pedal edema appreciated, warm, lower extremity pulses palpable and symmetrical Neurological: Alert and oriented 3, no facial droop, no focal deficits Skin: Dry, intact, pallor noted Internal Med - H&P Results - Labs CBC & Chem 7: 12/10/16 18:56 12/10/16 18:57 <Masoud Marino - Last Filed: 12/17/16 00:44> Assessment and Plan (1) Anemia, chronic disease Status: Chronic . (2) Protein-calorie malnutrition, moderate Status: Chronic . (3) Obesity (BMI 30-39.9) Status: Chronic . (4) Bipolar disorder with current episode depressed Status: Chronic . Qualifiers: Current episode severity: moderate Qualified Code(s): F31.32 - Bipolar disorder, current episode depressed, moderate (5) Iron deficiency Status: Chronic . (6) UTI (urinary tract infection) Status: Acute . Qualifiers: Urinary tract infection type: acute cystitis Hematuria presence: without hematuria Qualified Code(s): N30.00 - Acute cystitis without hematuria (7) COPD (chronic obstructive pulmonary disease) Status: Chronic . Qualifiers: COPD type: chronic bronchitis Qualified Code(s): J42 - Unspecified chronic bronchitis (8) Chronic pain syndrome Status: Chronic . (9) Tobacco abuse Status: Chronic . (10) Acute blood loss anemia Status: Acute . (11) Upper GI bleed Status: Acute . (12) History of noncompliance with medical treatment Status: Chronic . Internal Medicine - H&P: HPI Admitted From: Emergency Dept History of present illness: Ms. Camp is a 61 year old female with recently delineated peptic ulcer disease , readmitted to [facility] via the emergency department when she presented by EMS services from home with complaints of episodes of coffee-ground emesis and onset of melenotic stools. The patient was recently hospitalized at this facility December 04 through December 06 with similar complaints as today. History was reported experiencing multiple episodes of gastrointestinal bleeding with symptomatic acute blood loss anemia. Measured hemaglobin upon admission was 7 and following 2 units of packed red blood cells infusion had risen to 9.2. Upper and lower endoscopic analyses were completed. Upper endoscopy showed grade B reflux esophagitis with nonbleeding gastric ulcers. Colonoscopy was inconclusive due to poor bowel prep. Patient was recommended by gastroenterology to continue PPI therapy twice daily along with Carafate 3-4 times daily. Follow-up recommendations were provided with her primary care physician within 5 days of discharge and gastroenterology within 1-2 weeks of discharge. However these plans were not met prior to this return visit. Interestingly trending if patient's hemoglobin and hematocrits over the last 2 years finds that her low but has trended to be in the 8-9.5 range. This is suggestive of a chronicity of iron deficiency anemia. The etiology for the chronicity of her anemia is unclear at present. Whether it is due to malabsorption versus acute on chronic blood loss versus nutritional selection warrant further review. The patient acknowledges prior treatment in the outpatient setting for this. Of note she is status post hysterectomy. Patient compliance with medical treatments and recommendations cannot be fully validated. A comprehensive medical investigation will be pursued. The patient was visited and interviewed and examined. I examined this patient and my medical decision-making was reviewed with the Resident Physician, Dr. Mane Sewell. For this encounter, I have reviewed the documentation, treatment plan, and medical decision making. I agree with the documented findings, disposition and treatment plan as described except to the extent set forth below. Cumulative laboratory and radiographic data base was reviewed, considered and discussed. Given the patient's presenting concerns, past medical history, clinical findings and symptoms, she is admitted at this time to undergo further evaluation and disposition. All Systems PM: A 10-system review of systems was performed and is negative for pertinent findings except as documented above in the HPI. - Constitutional Vitals: Temp Pulse Resp BP Pulse Ox 98.1 F 86 14 115/73 94 L 12/12/16 07:35 12/12/16 07:35 12/12/16 07:35 12/12/16 07:35 12/12/16 11:02 Internal Med - H&P Results - Labs CBC & Chem 7: 12/12/16 08:03 12/11/16 07:13 Labs: Abnormal lab results RBC 3.21 M/mcL (3.82-4.97) L 12/12/16 08:03 Hgb 8.8 g/dL (11.5-15.4) L 12/12/16 08:03 Hct 28.2 % (35.3-44.9) L 12/12/16 08:03 MCH 27.4 pg (28.0-33.3) L 12/12/16 08:03 MCHC 31.2 g/dL (31.6-35.5) L 12/12/16 08:03 RDW 16.3 % (11.5-14.5) H 12/12/16 08:03 Chloride 110 mEq/L (98-109) H 12/11/16 07:13 BUN 5 mg/dL (7-20) L 12/11/16 07:13 Glucose 105 mg/dL (70-99) H 12/11/16 07:13 POC Glucose 144 (58-89) H 12/11/16 11:39 Calcium 7.7 mg/dL (8.6-10.8) L 12/11/16 07:13 Serum Total Protein 5.3 g/dL (6.0-8.3) L 12/11/16 07:13 Albumin 2.5 g/dL (3.5-5.0) L 12/11/16 07:13 Albumin/Globulin Ratio 0.9 (1.1-2.2) L 12/11/16 07:13 LDL Cholesterol, Calc 106 mg/dL (0-99) H 12/11/16 07:13 HDL Cholesterol 38 mg/dL (40-59) L 12/11/16 07:13 Urine Clarity Cloudy (Clear) A 12/11/16 01:10 Urine Blood Trace (Negative) H 12/11/16 01:10 Urine Nitrite Positive (Negative) A 12/11/16 01:10 Ur Leukocyte Esterase Moderate (Negative) H 12/11/16 01:10 Urine Microscopic RBC 5-15 per hpf (0-3) H 12/11/16 01:10 Urine Microscopic WBC 50-100 per hpf (0-3) H 12/11/16 01:10 Ur Squamous Epith Cells Many per lpf (None-Few) H 12/11/16 01:10 Urine Bacteria Many per hpf (None-Few) H 12/11/16 01:10 Laboratory Last Values WBC 5.5 K/mcL (4.3-11.1) 12/12/16 08:03 RBC 3.21 M/mcL (3.82-4.97) L 12/12/16 08:03 Hgb 8.8 g/dL (11.5-15.4) L 12/12/16 08:03 Hct 28.2 % (35.3-44.9) L 12/12/16 08:03 MCV 87.9 fL (83.0-100.0) 12/12/16 08:03 MCH 27.4 pg (28.0-33.3) L 12/12/16 08:03 MCHC 31.2 g/dL (31.6-35.5) L 12/12/16 08:03 RDW 16.3 % (11.5-14.5) H 12/12/16 08:03 Plt Count 368 K/mcL (140-400) 12/12/16 08:03 MPV 10.6 fL (9.4-12.4) 12/12/16 08:03 Immature Gran % 0.2 % (0-4) 12/12/16 08:03 Seg Neutrophils % 68.2 % 12/12/16 08:03 Lymphocytes % 17.4 % 12/12/16 08:03 Monocytes % 9.0 % 12/12/16 08:03 Eosinophils % 4.3 % 12/12/16 08:03 Basophils % 0.9 % 12/12/16 08:03 Neutrophils # 3.8 K/mcL (1.6-8.9) 12/12/16 08:03 Lymphocytes # 1.0 K/mcL (0.6-4.6) 12/12/16 08:03 Monocytes # 0.5 K/mcL (0.0-1.3) 12/12/16 08:03 Eosinophils # 0.2 K/mcL (0.0-0.6) 12/12/16 08:03 Basophils # 0.1 K/mcL (0.0-0.2) 12/12/16 08:03 Immature Plt Fraction 4.4 % (1.1-6.1) 12/11/16 11:13 PT 11.3 Seconds (9.4-12.1) 12/11/16 07:13 INR 1.0 12/11/16 07:13 APTT 27.4 Seconds (26.0-36.0) 12/11/16 07:13 Sodium 140 mEq/L (136-145) 12/11/16 07:13 Potassium 3.5 mEq/L (3.5-4.5) 12/11/16 07:13 Chloride 110 mEq/L (98-109) H 12/11/16 07:13 Carbon Dioxide 23 mEq/L (19-29) 12/11/16 07:13 BUN 5 mg/dL (7-20) L 12/11/16 07:13 Creatinine 0.73 mg/dL (0.57-1.11) 12/11/16 07:13 Est GFR ( Amer) > 60 (> 60) 12/11/16 07:13 Est GFR (Non-Af Amer) > 60 (> 60) 12/11/16 07:13 BUN/Creatinine Ratio 7 (6-26) 12/11/16 07:13 Glucose 105 mg/dL (70-99) H 12/11/16 07:13 POC Glucose 144 (58-89) H 12/11/16 11:39 Calculated Osmolality 288 (280-300) 12/11/16 07:13 Calcium 7.7 mg/dL (8.6-10.8) L 12/11/16 07:13 Phosphorus 4.6 mg/dL (2.3-4.7) 12/11/16 07:13 Magnesium 1.8 mg/dL (1.6-2.6) 12/11/16 07:13 Total Bilirubin 0.6 mg/dL (0.2-1.2) 12/11/16 07:13 AST 11 Units/L (5-34) 12/11/16 07:13 ALT 9 Units/L (0-55) 12/11/16 07:13 Alkaline Phosphatase 81 Units/L (38-126) 12/11/16 07:13 Troponin I 0.00 ng/mL (0-0.03) 12/11/16 13:00 Serum Total Protein 5.3 g/dL (6.0-8.3) L 12/11/16 07:13 Albumin 2.5 g/dL (3.5-5.0) L 12/11/16 07:13 Globulin 2.8 g/dL (2.4-3.5) 12/11/16 07:13 Albumin/Globulin Ratio 0.9 (1.1-2.2) L 12/11/16 07:13 Triglycerides 108 mg/dL (< 150) 12/11/16 07:13 Cholesterol 166 mg/dL (< 200) 12/11/16 07:13 LDL Cholesterol, Calc 106 mg/dL (0-99) H 12/11/16 07:13 VLDL Cholesterol, Calc 22 mg/dL (< 31) 12/11/16 07:13 HDL Cholesterol 38 mg/dL (40-59) L 12/11/16 07:13 Cholesterol/HDL Ratio 4.4 (0-4.9) 12/11/16 07:13 Urine Color Yellow (Yellow) 12/11/16 01:10 Urine Clarity Cloudy (Clear) A 12/11/16 01:10 Urine pH 6.0 pH Units (5.0-8.0) 12/11/16 01:10 Ur Specific [place] 1.022 (1.010-1.025) 12/11/16 01:10 Urine Protein Trace mg/dL (Neg-Trace) 12/11/16 01:10 Urine Glucose (UA) Normal mg/dL (Normal) 12/11/16 01:10 Urine Ketones Negative mg/dL (Negative) 12/11/16 01:10 Urine Blood Trace (Negative) H 12/11/16 01:10 Urine Nitrite Positive (Negative) A 12/11/16 01:10 Urine Bilirubin Negative (Negative) 12/11/16 01:10 Urine Urobilinogen Normal mg/dL (Normal) 12/11/16 01:10 Ur Leukocyte Esterase Moderate (Negative) H 12/11/16 01:10 Urine Microscopic RBC 5-15 per hpf (0-3) H 12/11/16 01:10 Urine Microscopic WBC 50-100 per hpf (0-3) H 12/11/16 01:10 Ur Squamous Epith Cells Many per lpf (None-Few) H 12/11/16 01:10 Urine Bacteria Many per hpf (None-Few) H 12/11/16 01:10 Hyaline Casts Test Not Performed 12/11/16 01:10 Specimen Rejected Clotted 12/11/16 07:13 Blood Type A POSITIVE 12/10/16 18:57 Antibody Screen NEGATIVE 12/10/16 18:57 Crossmatch See Detail 12/10/16 18:57 - Impressions ITS Impressions KUB X-Ray 12/11/16 00:05 IMPRESSION: Nonspecific bowel gas pattern with no acute finding detected in the abdomen. D/ / Fabian Neal MD / Fabian Neal MD Interpreting Provider: Fabian Neal MD X-Ray 12/11/16 00:05 IMPRESSION: Nonspecific bowel gas pattern with no acute finding detected in the abdomen. D/ / Fabian Neal MD / Fabian Neal MD Interpreting Provider: Fabian Neal MD - Attending Attestation My signature below is to certify that this patient is under my care and that I, or the Resident Physician working with me, has had a [id number] encounter with this patient. Plan of care has been reviewed and discussed in detail with the patient. Questions addressed. Advance care directive discussion briefly addressed. Patient does not declare any healthcare restrictions at this time. Outpatient medications schedules will be reviewed, confirmed and facilitated as appropriate. Reconciliation of home treatments including adjustments, substitutions and reintroduction into the treatment regimen will address necessary maintenance therapies for chronic pre-existing medical conditions. Smoking cessation counseling briefly addressed. Patient accepts nicotine substitution with this admission. Hospital course dictated by clinical findings, treatment response and potential consultative interventions. Consultative opinions will be sought as clinical circumstances justify. Initial consultative opinion has been requested of gastroenterology. The patient is at risk for acute clinical decline and morbidity given this presenting chief complaint and comorbid conditions. Condition is serious. Prognosis is guarded. CODE STATUS is full.
[2016-12-10] MEDS ORDERED: 0.9 % Sodium Chloride 250 ML ONE (23:12)
[2016-12-10] MEDS ORDERED: Scopolamine Patch 1.5 MG PATCH.TD72 TD ONE (23:23)
[2016-12-11] MEDS ORDERED: Octreotide 400 MCG in 0.9 % Sodium Chloride 100 ML IVC SCH (00:17)
[2016-12-11] MEDS ORDERED: Octreotide 50 MCG/ML SYRINGE IVP STA (00:17)
[2016-12-11 01:21] LABS: Bilirubin,Urine Negative (Negative); Blood,Urine Trace (Negative); Clarity,Urine Cloudy (Clear); Color,Urine Yellow (Yellow); Glucose,Urine (UA) Normal (Normal); Ketones,Urine Negative (Negative); Leukocyte Esterase,Urine Moderate (Negative); Nitrite,Urine Positive (Negative); Protein,Urine Trace mg/dL (Neg-Trace); Specific Gravity,Urine 1.022 (1.010-1.025); Urobilinogen,Urine Normal (Normal)
[2016-12-11 01:23] LABS: Bacteria,Urine Many per hpf (None-Few); Squamous Epithelial Cell,Urine Many per lpf (None-Few); WBC,Urine 50-100 per hpf (0-3)
[2016-12-11] MEDS: *HR* Promethazine 25 MG/ML VIAL IVP PRN (01:24)
[2016-12-11] MEDS: Metoclopramide 10 MG/2 ML VIAL IVP SCH ×3 (01:24→06:19)
[2016-12-11] MEDS: *HR* HYDROmorphone (PF) 1 MG/ML SYRINGE IVP PRN ×5 (01:25→21:36)
[2016-12-11] MEDS: Pantoprazole 40 MG in 0.9 % Sodium Chloride Mini Bag 100 ML IVC SCH ×2 (01:25→19:16)
[2016-12-11] MEDS ORDERED: 0.9 % Sodium Chloride 250 ML ONE (02:56)
[2016-12-11 07:40] LABS: Prothrombin Time 11.3 Seconds (9.4-12.1)
[2016-12-11 07:42] LABS: Activated Partial Thrombo Time 27.4 Seconds (26.0-36.0)
[2016-12-11 07:55] LABS: Alanine Aminotransferase 9 Units/L (0-55); Albumin 2.5 g/dL (3.5-5.0); Albumin/Globulin Ratio 0.9 (1.1-2.2); Alkaline Phosphatase 81 Units/L (38-126); Aspartate Amino Transferase 11 Units/L (5-34); BUN/Creatinine Ratio 7 (6-26); Bilirubin,Total 0.6 mg/dL (0.2-1.2); Calcium 7.7 mg/dL (8.6-10.8); Carbon Dioxide 23 mEq/L (19-29); Chloride 110 mEq/L (98-109); Globulin 2.8 g/dL (2.4-3.5); Glucose 105 mg/dL (70-99); Magnesium 1.8 mg/dL (1.6-2.6); Osmolality,Calculated 288 (280-300); Phosphorous 4.6 mg/dL (2.3-4.7); Potassium 3.5 mEq/L (3.5-4.5); Sodium 140 mEq/L (136-145); Total Protein 5.3 g/dL (6.0-8.3); eGFR For African Americans > 60 (> 60); eGFR For Non-African Americans > 60 (> 60)
[2016-12-11] MEDS: Budesonide/Formoterol 160/4.5 MDI IH SCH ×2 (07:55→20:46)
[2016-12-11 07:56] LABS: Chol/HDL Ratio 4.4 (0-4.9)
[2016-12-11 07:57] LABS: Blood Urea Nitrogen 5 mg/dL (7-20)
--- NOTE | 2016-12-11 09:13 | Gastroenterology Consult Note ---
<Guerline Bal - Last Filed: 12/11/16 11:07> Date of Encounter: 12/11/16 Time of Encounter: 10:20 - Assessment and plan (1) Anemia Current Visit: No Status: Chronic Assessment and plan: Monitor H&H, baseline in the 9s. Transfuse as appropriate. F/U with hematology. EGD today Qualifiers: Anemia type: unspecified type Qualified Code(s): D64.9 - Anemia, unspecified (2) Hematemesis Current Visit: No Status: Acute Assessment and plan: EGD today Qualifiers: Nausea presence: with nausea Qualified Code(s): K92.0 - Hematemesis; R11.0 - Nausea (3) Melena Current Visit: No Status: Acute Assessment and plan: EGD today - Time Spent With Patient Total time spent is greater than 50% in coordination of care (as documented) at patient's floor/unit and/or counseling patient: less than 15 minutes GI History of Present Illness - Data of Consult Patient: known to practice within the last 3 years Consult date: 12/11/16 Requesting Physician: Celia Garcia MD - Consult Narrative Reason for consult: Anemia, UGIB, melena, hematemesis History of present illness: Ms. Camp is a 61 year old female with a PMH significant for COPD, esophagitis, peptic ulcer disease, anxiety, bipolar, PTSD, and chronic anemia who presented to the [facility] last evening after one episode of coffee-ground emesis along with exertional dyspnea, fatigue, nausea/vomiting that have continued or worsened since undergoing upper and lower endoscopy on 12/05/16. She states that earlier today she had one episode of coffee-ground emesis that all those since have been bilious or acidic. She states that she has difficulty with mild exertion such as walking across a room and that it causes her fatigue and shortness of breath. She states this began beginning of the month (about 2 weeks ago) that has not gotten better since undergoing EGD last week. In the EGD she was found to have gastric ulcers and chronic gastritis without H. pylori. At this time she also admits to having a severe abdominal pain that she rates as 9/10 in severity and feels like an ache or twisting of her insides. This pain is exacerbated by touch and palpation, especially in the epigastric region. She also states that she has continued to have melanotic stool that is sticky and loose in character. Her baseline hgb is in the 9s, she has seen hematology in the past regarding chronic anemia and received IV iron, her latest Fe labs (12/05/16 admission) were normal. She is receiving 2 units PRBC at this time. Colonoscopy: 11/2015 - [facility] EGD: 11/2015 - [facility] - 2 large gastric ulcers, LA grade B esophagitis Past Med Surg Social Fam HX - Past Medical History Medical history: COPD, other Psychiatric history: anxiety, bipolar, depression, PTSD, previous psychiatric hospitalization - Past Surgical History Surgical History: cholecystectomy, hysterectomy, other - Social History Smoking Status: Current every day smoker Packs per day: 1 Smokeless Tobacco Status: No Alcohol use: none Drug use: none - Family History Mother Adopted: No Family Member Ethnicity: Non- Living Status: Hx Family Cardiac Disorders: Yes (PA) Hx Family Respiratory Disorders: Yes (COPD) Hx Family Cancer: Yes (Cervical) Hx Family GI Disorders: No Hx Family Endocrine Disorder: Yes (DM) Hx Family Neuromuscular Disorders: No Hx Family Neurologic Disorders: No Hx Family HEENT Disorders: No Hx Family Autoimmune Disorders: No Father Living Status: Hx Family Cardiac Disorders: No Hx Family Respiratory Disorders: No Hx Family Cancer: Yes (Throat) Hx Family Endocrine Disorder: Yes (DM) - Gastrointestinal NSAID use: None noted Anticoagulation Use: None Number of BM Per Day: daily Gastrointestinal: Present: abdominal pain, coffee ground emesis, melena - Constitutional Constitutional: fatigue - EENT Eyes: as per HPI Ears: Present: as per HPI Nose, mouth and throat: Present: as per HPI - Cardiovascular Cardiovascular ROS: Present: as per HPI - Respiratory Respiratory IM: Present: as per HPI - Neurological ROS Neurological GI: Present: weakness - Hematologic/Lymphatic Hematologic/Lymphatic pediatric: Present: as per HPI - Musculoskeletal Musculoskeletal ROS GI: Present: as per HPI - Integumentary Integumentary GI: Present: as per HPI - Psychiatric ROS Psychiatric GI: Present: as per HPI - Endocrine Endocrine IM: Present: as per HPI - Constitutional Vitals: Temp Pulse Resp BP Pulse Ox 97.8 F 92 18 119/72 97 12/11/16 08:11 12/11/16 08:11 12/11/16 08:11 12/11/16 08:11 12/11/16 08:11 General appearance: Present: cooperative, A&O X 3, no acute distress, answers questions appropriately - Head Head exam: Present: atraumatic, normocephalic - Eye Eye exam: Present: normal appearance, sclera anicteric - ENT ENT exam: Present: mucous membranes moist - Neck Neck exam general surgery: Present: normal inspection, trachea midline - Respiratory Respiratory exam: Present: CTAB - Cardiovascular Cardiovascular exam: Present: RRR, +S1, +S2 - GI/Abdominal GI/Abdominal exam: Present: soft, tenderness, no peritoneal signs - Rectal Rectal exam: Present: deferred - Extremities Exam Extremities exam: Present: warm - Neurological Exam Neurological exam: Present: no focal deficits - Psychiatric Psychiatric exam: Present: normal affect, normal mood - Skin Skin exam: Present: dry, intact, normal color, warm Results - Labs CBC & Chem 7: 12/10/16 18:56 12/11/16 07:13 Labs: Last Result Calcium 7.7 mg/dL (8.6-10.8) L 12/11/16 07:13 Troponin I 0.00 ng/mL (0-0.03) 12/11/16 07:13 Triglycerides 108 mg/dL (< 150) 12/11/16 07:13 Entire Visit Hgb 7.6 g/dL (11.5-15.4) L 12/10/16 18:56 Hct 24.6 % (35.3-44.9) L 12/10/16 18:56 PT 11.3 Seconds (9.4-12.1) 12/11/16 07:13 Total Bilirubin 0.6 mg/dL (0.2-1.2) 12/11/16 07:13 AST 11 Units/L (5-34) 12/11/16 07:13 ALT 9 Units/L (0-55) 12/11/16 07:13 - ABG ABG results: PT/INR, D-dimer PT 11.3 Seconds (9.4-12.1) 12/11/16 07:13 - Impressions Impressions KUB X-Ray 12/11/16 00:05 IMPRESSION: Nonspecific bowel gas pattern with no acute finding detected in the abdomen. D/ / Fabian Neal MD / Fabian Neal MD Interpreting Provider: Fabian Neal MD Consult Discharge Plan - Plan Referrals: Lida Perez DO [Primary Care Provider] - 12/19/16 2:30 pm <Rajendra Mae - Last Filed: 12/11/16 17:45> Time of Encounter: 13:00 - Time Spent With Patient Total time spent is greater than 50% in coordination of care (as documented) at patient's floor/unit and/or counseling patient: GI History of Present Illness - Data of Consult Requesting Physician: Celia Garcia MD - Consult Narrative History of present illness: Ms. Camp is a 61 year old female - Constitutional Vitals: Temp Pulse Resp BP Pulse Ox 97.7 F 94 18 144/70 96 12/11/16 15:37 12/11/16 15:37 12/11/16 15:37 12/11/16 15:37 12/11/16 15:37 Results - Labs CBC & Chem 7: 12/11/16 11:13 12/11/16 07:13 Labs: Last Result Calcium 7.7 mg/dL (8.6-10.8) L 12/11/16 07:13 Troponin I 0.00 ng/mL (0-0.03) 12/11/16 13:00 Triglycerides 108 mg/dL (< 150) 12/11/16 07:13 Entire Visit Hgb 9.8 g/dL (11.5-15.4) L D 12/11/16 11:13 Hct 31.9 % (35.3-44.9) L 12/11/16 11:13 PT 11.3 Seconds (9.4-12.1) 12/11/16 07:13 Total Bilirubin 0.6 mg/dL (0.2-1.2) 12/11/16 07:13 AST 11 Units/L (5-34) 12/11/16 07:13 ALT 9 Units/L (0-55) 12/11/16 07:13 - ABG ABG results: PT/INR, D-dimer PT 11.3 Seconds (9.4-12.1) 12/11/16 07:13 - Impressions Impressions KUB X-Ray 12/11/16 00:05
[2016-12-11] MEDS: Ondansetron 4 MG/2 ML VIAL IVP PRN ×2 (10:54→21:36)
[2016-12-11 11:26] LABS: Basophils % 0.7 %; Eosinophils # 0.2 K/mcL (0.0-0.6); Eosinophils % 2.8 %; Hematocrit 31.9 % (35.3-44.9); Hemoglobin 9.8 g/dL (11.5-15.4); Immature Granulocytes % 0.3 % (0-4); Immature Platelets 4.4 % (1.1-6.1); Lymphocytes % 16.6 %; Mean Corpuscular HGB Conc 30.7 g/dL (31.6-35.5); Mean Corpuscular Hemoglobin 26.6 pg (28.0-33.3); Mean Corpuscular Volume 86.7 fL (83.0-100.0); Mean Platelet Volume 10.1 fL (9.4-12.4); Monocytes # 0.6 K/mcL (0.0-1.3); Monocytes % 9.6 %; Platelet Count 410 K/mcL (140-400); Red Blood Count 3.68 M/mcL (3.82-4.97); Red Cell Distribution Width 16.1 % (11.5-14.5)
--- NOTE | 2016-12-11 12:09 | Anesthesia Evaluation PreOp ---
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: Other (Bipolar, Anxiety) Other Medical History: Denies Any Significant HX Anesthesia History: No Prior Anesthetic Complications, Past Anesthesia (EGD) Alcohol Use: none Drug use: none Medications and Allergies Albuterol Sulfate [Proair Hfa] 2 puff IH Q4H PRN 09/01/16 [History] Budesonide/Formoterol 160/4.5 [Symbicort 160/4.5] 2 puff IH BID 09/01/16 [ History] Doxepin [Sinequan] 100 mg PO HS 09/01/16 [History] Duloxetine HCl [Cymbalta] 60 mg PO BID 09/01/16 [History] Gabapentin [Neurontin] 100 mg PO TID 09/01/16 [History] Promethazine [Phenergan] 25 mg PO HS 09/01/16 [History] ClonazePAM [Klonopin] 1 mg PO TID PRN 12/03/16 [History] Mirtazapine 15 mg PO HS 12/03/16 [History] Pantoprazole Sodium [Protonix] 40 mg PO BID #60 tablet. 12/06/16 [Rx] Sucralfate [Carafate] 1 gm PO QIDAC #60 tablet 12/06/16 [Rx] Allergies Zolpidem [From Ambien] Allergy (Verified 08/31/16 16:33) Agitated eszopiclone [From Lunesta] Adverse Reaction (Verified 09/01/16 09:48) Gastrointestinal Upset - Meds/Allergy Pre-op Review Medications Reviewed: Yes Allergies Reviewed: Yes Beta Blockers on Current Med List: No Anesthesia Results - Labs 12/11/16 11:13 12/11/16 07:13 Anesthesia Exam O2 Sat Height 1.57 m Weight 87.543 kg O2 Sat by Pulse Oximetry 96 O2 Sat by Pulse Oximetry 95 O2 Sat by Pulse Oximetry 97 O2 Sat by Pulse Oximetry 75 O2 Sat by Pulse Oximetry 93 O2 Sat by Pulse Oximetry 93 O2 Sat by Pulse Oximetry 93 O2 Sat by Pulse Oximetry 94 O2 Sat by Pulse Oximetry 94 O2 Sat by Pulse Oximetry 94 O2 Sat by Pulse Oximetry 95 O2 Sat by Pulse Oximetry 95 O2 Sat by Pulse Oximetry 96 O2 Sat by Pulse Oximetry 94 Vital Signs Temp Pulse Resp BP Pulse Ox 98.3 F 107 18 105/73 94 L 12/10/16 16:36 12/10/16 16:36 12/10/16 16:36 12/10/16 16:36 12/10/16 16:36 Vital Signs/O2 Sat, Most Current Temp Pulse Resp BP Pulse Ox 98.1 F 93 16 113/75 96 12/11/16 11:34 12/11/16 11:34 12/11/16 11:46 12/11/16 11:34 12/11/16 11:46 Height: 5'2'' Weight: 190# NPO (# of Hours): > 8 hrs Pain Scale: 0 Pain Scale Used: Numeric (1 - 10) - HEENT Pupil (Motor): Pupils equal, EOMI Mallampati: III Teeth: Missing Oral Opening: Greater than 3 - 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 RADIAL LOC: Oriented 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 RADIAL Motor: Normal RUE, Normal LUE, Normal RLE, Normal LLE, Normal Face 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 RADIAL Sensory: Normal: RUE, LUE, RLE, LLE, Face - Cardiac Rhythm: Regular Murmur: None JVD: No Carotid Bruit: No - Pulmonary Breath Sounds: bilateral Clear Respiratory Effort: Symmetrical Anesthesia Assess/Plan ASA Score: 3 Modified Wendy Scale for Level of Consciousness: Cooperative, oriented, and tranquil Anesthetic Plan: MAC Autologous Blood: Yes Monitoring Plan: Standard Monitors Recovery Plan: Other <Lui Dougherty - Last Filed: 12/11/16 13:21> Time of Encounter: 13:18 - Past History Planned Operation: EGD Cardiac History: Denies any Significant Hx Pulmonary History: Smoker, COPD Other Medical History: Denies Any Significant HX Anesthesia History: No Prior Anesthetic Complications : No Alcohol Use: none Drug use: none - Meds/Allergy Pre-op Review Medications Reviewed: Yes Allergies Reviewed: Yes Beta Blockers on Current Med List: No Anesthesia Results - Labs 12/11/16 11:13 12/11/16 07:13 Anesthesia Exam - HEENT Pupil (Motor): Pupils equal Mallampati: II Teeth: Missing, Poor dentition - 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
--- NOTE | 2016-12-11 12:39 | Anesthesia Evaluation PreOp ---
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 12/06/16 [Rx] Sucralfate [Carafate] 1 gm PO QIDAC #60 tablet 12/06/16 [Rx] Allergies Zolpidem [From Ambien] Allergy (Verified 08/31/16 16:33) Agitated eszopiclone [From Lunesta] Adverse Reaction (Verified 09/01/16 09:48) Gastrointestinal Upset - Meds/Allergy Pre-op Review Medications Reviewed: Yes Allergies Reviewed: Yes Beta Blockers on Current Med List: No Anesthesia Results - Labs 12/11/16 11:13 12/11/16 07:13
--- NOTE | 2016-12-11 13:01 | Electrocardiograph Report ---
[place] [id number] Test Date: 2016-12-10 Pat Name: Ricky Camp Department: [id number] Room: 3A37 Gender: F Terminologist: : 1955 Requested By: Aaron Brown Order Number: [id number] Reading MD: Adam Guido MD Measurements Intervals Walker Rate: 100 P: 52 [place]: 174 QRS: 9 QRSD: 99 T: 35 QT: 340 QTc: 397 Interpretive Statements SINUS TACHYCARDIA Electronically Signed On 12-11-2016 13:00:26 EDT by Adam Guido MD
[2016-12-11] MEDS ORDERED: Tetracaine/Benzocaine/Butamben 200MG/SPRAY (100SPY/BOT) MM ONE (13:27)
[2016-12-11] MEDS ORDERED: 0.9 % Sodium Chloride 1,000 ML IVC SCH (13:30)
--- NOTE | 2016-12-11 13:51 | Internal Med Progress Note ---
Date of Encounter: 12/11/16 Time of Encounter: 13:47 - Assessment and plan (1) Anemia Current Visit: No Status: Acute Assessment and plan: hb stable today, transfused 1 unit prbc. denies any further coffee ground vomiting now, denies any noreen repeat hb is 9.8 today labs show iron deficiency anemia, will start iron sucrose was seen by hematology in the past and has had iron transfused in the past. Qualifiers: Anemia type: iron deficiency Qualified Code(s): D50.0 - Iron deficiency anemia secondary to blood loss (chronic) (2) COPD (chronic obstructive pulmonary disease) Current Visit: No Status: Chronic Qualifiers: COPD type: chronic bronchitis Qualified Code(s): J42 - Unspecified chronic bronchitis (3) Upper GI bleed Current Visit: No Status: Resolved (4) DVT prophylaxis Current Visit: No Status: Acute (5) UTI (urinary tract infection) Current Visit: Yes Status: Acute Assessment and plan: will start IV antibiotics today for UTI, send urine cx. will de- escalate as per urine cx results Qualifiers: Urinary tract infection type: site unspecified Hematuria presence: without hematuria Qualified Code(s): N39.0 - Urinary tract infection, site not specified - Time Spent With Patient 25 - 35 minutes - Subjective Interval history: seen at [facility] bedside, admitted for abdominal pain and coffee ground vomiting reports that she feels better today, planned for EG Dtoday. GI has been consulted. - Constitutional Vitals: Temp Pulse Resp BP Pulse Ox 99.2 F 86 20 132/77 92 L 12/11/16 13:22 12/11/16 13:22 12/11/16 13:22 12/11/16 13:22 12/11/16 13:22 General appearance: Present: A&O X 3, no acute distress Exam: - Head Head exam: Present: atraumatic, normocephalic - Eye Eye exam: Present: normal appearance, sclera anicteric - ENT ENT exam: Present: mucous membranes moist - Neck Neck exam general surgery: Present: normal inspection, trachea midline - Respiratory Respiratory exam: Present: CTAB - Cardiovascular Cardiovascular exam: Present: RRR, +S1, +S2 - GI/Abdominal GI/Abdominal exam: Present: soft,non tenderness, no peritoneal signs - Rectal Rectal exam: Present: deferred - Extremities Exam Extremities exam: Present: warm - Neurological Exam Neurological exam: Present: no focal deficits - Psychiatric Psychiatric exam: Present: normal affect, normal mood - Skin Skin exam: Present: dry, intact, normal color, warm Internal Medicine: Result - Labs CBC & Chem 7: 12/11/16 11:13 12/11/16 07:13 Labs: Short CBC 12/11/16 Range/Units 11:13 WBC 5.7 (4.3-11.1) K/mcL Hgb 9.8 L D (11.5-15.4) g/dL Hct 31.9 L (35.3-44.9) % Plt Count 410 H (140-400) K/mcL Neutrophils # 4.0 (1.6-8.9) K/mcL BMP 12/11/16 07:13 Sodium 140 Potassium 3.5 Chloride 110 H Carbon Dioxide 23 BUN 5 L Creatinine 0.73 Glucose 105 H Calcium 7.7 L Cardiac Enzymes 12/11/16 12/11/16 Range/Units 07:13 13:00 Troponin I 0.00 0.00 (0-0.03) ng/mL Liver Function 12/11/16 Range/Units 07:13 Total Bilirubin 0.6 (0.2-1.2) mg/dL AST 11 (5-34) Units/L ALT 9 (0-55) Units/L Alkaline Phosphatase 81 (38-126) Units/L Albumin 2.5 L (3.5-5.0) g/dL Urine 12/11/16 Range/Units 01:10 Urine Color Yellow (Yellow) Urine Clarity Cloudy A (Clear) Urine pH 6.0 (5.0-8.0) pH Units Ur Specific [place] 1.022 (1.010-1.025) Urine Protein Trace (Neg-Trace) mg/dL Urine Glucose (UA) Normal (Normal) mg/dL - ABG Interpretation ABG results: PT/INR, D-dimer PT 11.3 Seconds (9.4-12.1) 12/11/16 07:13 - Impressions Impressions KUB X-Ray 12/11/16 00:05 IMPRESSION: Nonspecific bowel gas pattern with no acute finding detected in the abdomen. D/ / Fabian Neal MD / Fabian Neal MD Interpreting Provider: Fabian Neal MD Consult Discharge Plan - Plan Referrals: Lida Perez DO [Primary Care Provider] - 12/19/16 2:30 pm
[2016-12-11] MEDS: Nicotine 14 MG PATCH.TD24 TD SCH (15:00)
[2016-12-11] MEDS: clonazePAM 1 MG TABLET PO PRN ×2 (15:20→21:42)
[2016-12-11] MEDS: 0.9 % Sodium Chloride 1,000 ML IVC SCH ×2 (15:21→18:26)
[2016-12-11] MEDS ORDERED: Levofloxacin 500 MG/100 ML 500 MG/100 ML BAG IVPB SCH (17:00)
[2016-12-11] MEDS: Pantoprazole 40 MG VIAL IVP SCH (18:26)
[2016-12-12] MEDS: *HR* Promethazine 25 MG/ML VIAL IVP PRN (02:26)
[2016-12-12] MEDS: *HR* HYDROmorphone (PF) 1 MG/ML SYRINGE IVP PRN ×2 (02:27→06:29)
[2016-12-12] MEDS: Pantoprazole 40 MG VIAL IVP SCH (05:29)
[2016-12-12] MEDS: Ondansetron 4 MG/2 ML VIAL IVP PRN (06:29)
[2016-12-12] MEDS: clonazePAM 1 MG TABLET PO PRN ×2 (06:42→11:45)
[2016-12-12] MEDS: Budesonide/Formoterol 160/4.5 MDI IH SCH (07:28)
[2016-12-12 08:14] LABS: Basophils # 0.1 K/mcL (0.0-0.2); Basophils % 0.9 %; Eosinophils # 0.2 K/mcL (0.0-0.6); Eosinophils % 4.3 %; Hematocrit 28.2 % (35.3-44.9); Hemoglobin 8.8 g/dL (11.5-15.4); Immature Granulocytes % 0.2 % (0-4); Lymphocytes % 17.4 %; Mean Corpuscular HGB Conc 31.2 g/dL (31.6-35.5); Mean Corpuscular Hemoglobin 27.4 pg (28.0-33.3); Mean Corpuscular Volume 87.9 fL (83.0-100.0); Mean Platelet Volume 10.6 fL (9.4-12.4); Monocytes # 0.5 K/mcL (0.0-1.3); Neutrophils # 3.8 K/mcL (1.6-8.9); Platelet Count 368 K/mcL (140-400); Red Blood Count 3.21 M/mcL (3.82-4.97); Red Cell Distribution Width 16.3 % (11.5-14.5); Segmented Neutrophils % 68.2 %
[2016-12-12 08:15] VITALS: BP 115/73
[2016-12-12] MEDS ORDERED: Acetaminophen 325 MG TABLET PO PRN (09:03)
--- NOTE | 2016-12-12 09:25 | Discharge Summary ---
Date of Encounter: 12/12/16 Time of Encounter: 09:00 - Discharge Diagnosis (1) Upper GI bleed Priority: Primary Status: Resolved (2) Gastric ulcer Priority: Primary Status: Acute Qualifiers: Gastric ulcer chronicity: acute Gastric ulcer complication status: without hemorrhage or perforation Qualified Code(s): K25.3 - Acute gastric ulcer without hemorrhage or perforation (3) Acute blood loss anemia Priority: Primary Status: Resolved (4) COPD (chronic obstructive pulmonary disease) Priority: Secondary Status: Chronic Qualifiers: COPD type: unspecified COPD Qualified Code(s): J44.9 - Chronic obstructive pulmonary disease, unspecified (5) UTI (urinary tract infection) Priority: Primary Status: Acute Qualifiers: Urinary tract infection type: site unspecified Hematuria presence: without hematuria Qualified Code(s): N39.0 - Urinary tract infection, site not specified (6) Anxiety Priority: Secondary Status: Chronic - Discharge Medications Prescriptions: Lansoprazole [Prevacid] 30 mg PO BIDAC #90 capsule. Levofloxacin [Levaquin] 250 mg PO DAILY #2 tablet Nicotine Patch [Nicoderm] 14 mg TD DAILY #30 patch.td24 Home Medications: Albuterol Sulfate [Proair Hfa] 2 puff IH Q4H PRN 09/01/16 [History] Budesonide/Formoterol 160/4.5 [Symbicort 160/4.5] 2 puff IH BID 09/01/16 [ History] Doxepin [Sinequan] 100 mg PO HS 09/01/16 [History] Duloxetine HCl [Cymbalta] 60 mg PO BID 09/01/16 [History] Gabapentin [Neurontin] 100 mg PO TID 09/01/16 [History] Promethazine [Phenergan] 25 mg PO HS 09/01/16 [History] Mirtazapine 15 mg PO HS 12/03/16 [History] Sucralfate [Carafate] 1 gm PO QIDAC #60 tablet 12/06/16 [Rx] Acetaminophen [Tylenol] 650 mg PO Q6HR PRN #0 tablet 12/12/16 [Rx] ClonazePAM [Klonopin] 1 mg PO BID PRN #0 12/12/16 [Rx] Lansoprazole [Prevacid] 30 mg PO BIDAC #90 capsule. 12/12/16 [Rx] Levofloxacin [Levaquin] 250 mg PO DAILY #2 tablet 12/12/16 [Rx] Nicotine Patch [Nicoderm] 14 mg TD DAILY #30 patch.td24 12/12/16 [Rx] Allergies/Adverse Reactions: Allergies Zolpidem [From Ambien] Allergy (Verified 08/31/16 16:33) Agitated eszopiclone [From Lunesta] Adverse Reaction (Verified 09/01/16 09:48) Gastrointestinal Upset Date of admission: 12/10/16 22:18 Primary care physician: Lida Perez DO Consults: 12/10/16 22:45 Consult to Gastroenterology [CONS] Routine Consulting Provider: Gastroenterology Addie Reason for Consult: Concern for continued Upper GI Bleed. Recntly diagnosed gastric ulcers on 12/05/16. Call Completed: No 12/11/16 09:21 Consult to Hauling Contractor [CONS] Routine Reason for SW Consult: may require social needs; could benefit from resources - Patient Status Disposition: Home, Self-Care Condition: Good Functional capacity at discharge: independent ambulation Overall status at discharge: patient is progressing back to baseline - Discharge Instructions Instructions: Acute Respiratory Distress Syndrome (DC), Urinary Tract Infection in Women (DC), Chronic Obstructive Pulmonary Disease (DC), Anemia (GEN ), Pneumonia (DC) Follow Up With: Lida Perez DO [Primary Care Provider] - 12/19/16 2:30 pm - Diet and Activity Activity: resume usual activities as tolerated Diet: low fat, low cholesterol, low salt diet Interval History: no complaints. she is eating well. she is eager to go home. Hospital course: Ms. Camp is a 61 year old female with pmh COPD, PUD, esophagitis, and mood disorder. She presents with dyspnea on exertion and coffee ground emesis. Hgb dropped to 7.6 and she was transfused 2 PRBC. EGD non-bleeding gastric ulcer with no stigmata of bleeding. salmon colored mucosa. Hgb was adequate and no more bleeding at discharge. urine culture grew E coli. she was started on levaquin and will complete 3 days of therapy. PLAN: PPI bid. carafate. f/u Dr Mae in 2 weeks. cbc in 1 week. - Time Spent with Patient Total time spent providing and/or coordinating discharge services: - Constitutional Vitals: Temp Pulse Resp BP Pulse Ox 98.1 F 86 14 115/73 93 L 12/12/16 07:35 12/12/16 07:35 12/12/16 07:35 12/12/16 07:35 12/12/16 07:35 General appearance: Present: cooperative, A&O X 3, pleasant, no acute distress, obese, answers questions appropriately - Eye Eye exam: Present: PERRL, sclera anicteric - Neck Neck exam general surgery: Present: supple, trachea midline. Absent: lymphadenopathy - Respiratory Respiratory exam: Present: CTAB - Cardiovascular Cardiovascular exam: Present: RRR - GI/Abdominal GI/Abdominal exam: Present: normal bowel sounds, soft. Absent: distended, tenderness - Extremities Exam Extremities exam: Absent: joint swelling, pedal edema - Neurological Exam Neurological exam: Present: alert, no focal deficits, strengths equal and symetr throughout. Absent: facial droop, speech deficit - Skin Skin exam: Absent: rash
[2016-12-12] MEDS: Nicotine 14 MG PATCH.TD24 TD SCH (10:18)
[2016-12-12] MEDS ORDERED: Lidocaine -MPF 2% 5 ML VIAL INFILT ONE (12:29)
[2016-12-12] MEDS ORDERED: *HR* Propofol 200 MG/20 ML VIAL IVP ONE (12:29)
== END 2016-12-12 12:30 | disposition home or self-care (01) ==
LOC: EMEROO 16:33 → 3ANU 16:33 → SUATTDRO 22:18 → 3ANU 22:41
PROVIDERS: ADMIT Internal Medicine; ATTEND Internal Medicine
PROC: ENDOEBX (2016-12-11 13:30)

== ENCOUNTER 2017-03-01 14:43 | Inpatient (IN) ==
[~2017-03-01 14:43] MED LIST: *HR* Propofol 200 MG/20 ML VIAL IVP ONE
[2017-03-01] MEDS ORDERED: 0.9 % Sodium Chloride 1,000 ML IVC ONE (15:06)
[2017-03-01] MEDS ORDERED: Pantoprazole 40 MG VIAL IVP ONE ×3 (15:06→19:45)
[2017-03-01] MEDS ORDERED: Ondansetron 4 MG/2 ML VIAL IVP ONE (15:17)
--- NOTE | 2017-03-01 15:18 | Emergency Department Note ---
Disposition Clinical Impression: Rectal bleeding Gastric ulcer Qualifiers: Gastric ulcer chronicity: acute Gastric ulcer complication status: with hemorrhage Qualified Code(s): K25.0 - Acute gastric ulcer with hemorrhage Disposition: Admitted As Inpatient Condition: Fair Referrals: NO,PCP [Non-Partnered Physician] - Forms: ED Satisfaction Letter Time of Disposition: 16:52 GI Bleed HPI - General Chief complaint: ED GI Bleed Stated complaint: Vomiting blood Time Seen by Provider: 03/01/17 15:01 Source: patient Mode of arrival: ambulatory Limitations: no limitations Nursing Notes Reviewed: Yes Vital Signs Reviewed: Yes - History of Present Illness HPI Narrative: 61-year-old female who has a history of previous GI bleed comes in stating that she's had dark tarry stools for the last 2 days. A review of her records show that on 12/11/2016 she saw GI who notes she had a gastric ulcer and she is being treated with a PPI. Patient is noted to have chronic anemia with a hemoglobin in the nines. The patient presents now for evaluation patient has not vomited blood but has had some dry heaves. Pt Subjective Complaint: other (Dark tarry stools) Onset (ago): day(s) Consistency: constant (2) Severity: moderate Improves with: nothing Worsens with: nothing Context: history of GI bleed Associated symptoms: Reports: nausea, vomiting - Related Data Home Medications Medication Instructions Recorded Confirmed Albuterol Sulfate [Proair Hfa] 2 puff IH Q4H PRN 09/01/16 12/10/16 Budesonide/Formoterol 160/4.5 2 puff IH BID 09/01/16 12/10/16 [Symbicort 160/4.5] Doxepin [Sinequan] 100 mg PO HS 09/01/16 12/10/16 Duloxetine HCl [Cymbalta] 60 mg PO BID 09/01/16 12/10/16 Gabapentin [Neurontin] 100 mg PO TID 09/01/16 12/10/16 Promethazine [Phenergan] 25 mg PO HS 09/01/16 12/10/16 Mirtazapine 15 mg PO HS 12/03/16 12/10/16 Previous Rx's Medication Instructions Recorded Sucralfate [Carafate] 1 gm PO QIDAC #60 tablet 12/06/16 Acetaminophen [Tylenol] 650 mg PO Q6HR PRN #0 tablet 12/12/16 Lansoprazole [Prevacid] 30 mg PO BIDAC #90 capsule. 12/12/16 Nicotine Patch [Nicoderm] 14 mg TD DAILY #30 patch.td24 12/12/16 clonazePAM [Klonopin] 1 mg PO BID PRN #0 12/12/16 levoFLOXacin [Levaquin] 250 mg PO DAILY #2 tablet 12/12/16 Acetaminophen w/Cod 300-30 mg 1 each PO Q6HR #20 tablet 01/27/17 [Tylenol w/Codeine #3] Penicillin VK 500 mg PO Q8HR #30 tablet 01/27/17 Allergies Allergy/AdvReac Type Severity Reaction Status Date / Time Zolpidem [From Ambien] Allergy Agitated Verified 01/27/17 10:51 eszopiclone [From Lunesta] AdvReac Gastrointestinal Verified 01/27/17 10:51 Upset All systems ED: reviewed and negative except as stated. Constitutional: Denies: fever, chills, weakness, weight change Eyes: Denies: eye pain, eye discharge, vision change ENT ED: Denies: ear pain, throat pain, dental pain, hearing loss, epistaxis, congestion, dysphagia Cardiovascular: Denies: chest pain, palpitations, dyspnea on exertion, edema, syncope Respiratory: Denies: cough, dyspnea, wheezes, hemoptysis, stridor Gastrointestinal: Reports: nausea, other (Dark tarry stools). Denies: abdominal pain, vomiting, diarrhea, constipation, hematemesis, melena, hematochezia Genitourinary: Denies: dysuria, frequency, hematuria, discharge Musculoskeletal: Denies: back pain, neck pain, arthralgia, myalgia Integumentary: Denies: rash, abrasion, lesions Neurological: Denies: headache, weakness, numbness, paresthesias, confusion, abnormal gait, vertigo Psychiatric: Denies: anxiety, depression, suicidal thoughts, homicidal thoughts , auditory hallucinations, visual hallucinations Endocrine: Denies: fatigue Hematological/Lymphatic: Denies: easy bleeding, easy bruising Allergic/Immunologic: Denies: facial swelling, urticaria Past Medical History - Past Medical History Medical history: Reports: COPD, fibromyalgia, GI bleed, other Surgical history: Reports: cholecystectomy, hysterectomy, other Psychiatric history: Reports: anxiety, bipolar, depression, PTSD, previous psychiatric hospitalization [employer] history: Reports: non-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 - Social History Smoking Status: Current every day smoker Smokeless Tobacco Status: No Alcohol use: Reports: none Drug use: Reports: none Physical Exam - General Limitations: no limitations General appearance: alert - Head Head exam: atraumatic, normocephalic, normal inspection - Eye Eye exam: Present: normal appearance, PERRL, EOMI - ENT ENT exam: normal exam, normal oropharynx, mucous membranes moist - Neck Neck exam: Present: normal inspection, full ROM, trachea midline - Chest Chest inspection: Present: normal inspection, symmetric chest wall rise - Respiratory Respiratory exam: Present: normal lung sounds bilaterally - Cardiovascular Cardiovascular exam: Present: regular rate, normal rhythm, normal heart sounds - Abdominal Exam Abdominal exam: Present: soft, tenderness. Absent: guarding, rebound Abdominal tenderness: Present: epigastrium - Rectal Exam Dietetic Technician Registered present during exam: Yes Rectal exam: Present: heme (+) stool, black stool - Extremities Exam Extremities exam: Present: normal inspection, full ROM. Absent: tenderness, pedal edema - Expanded Lower Extremity Exam Neurovascular/Tendon exam: Absent: motor deficit, sensory deficit, tendon deficit Gait: not tested/not observed - Back Exam Back exam: Present: normal inspection, full ROM. Absent: tenderness - Neurological Exam Neurological exam: Present: alert, oriented X3 - Psychiatric Psychiatric exam: Present: normal affect, normal mood - Skin Skin exam: Present: warm, dry, intact, normal color Course - Reevaluation(s) Reevaluation #1: 61-year-old who was diagnosed gastric ulcers a few weeks back who comes in with dark tarry stools or last couple of days some epigastric discomfort. Her hemoglobin has dropped 0.8 g of from her previous. CT scan was negative. A stool was strongly guaiac positive. Patient will be admitted for further evaluation and treatment. Time: 17:11 - Consultations Consultation #1: Discussed with wilder Tatum. Time: 17:12 Consultation #2: Discussed with GI, . Time: 17:12 Vital Signs Temperature 97.7 F 03/01/17 14:49 Pulse Rate 115 03/01/17 14:49 Respiratory Rate 20 03/01/17 14:49 Blood Pressure 118/77 03/01/17 14:49 O2 Sat by Pulse Oximetry 98 03/01/17 14:49 Temperature 97.7 F 03/01/17 14:49 Pulse Rate 115 03/01/17 14:49 Respiratory Rate 20 03/01/17 14:49 Blood Pressure 118/77 03/01/17 14:49 O2 Sat by Pulse Oximetry 98 03/01/17 14:49 GI Bleed - Medical Records Medical records reviewed: Yes I reviewed the patient's medical records. - Lab Data Lab results reviewed: Yes I reviewed the patient's lab results. Result diagrams: 03/01/17 16:13 03/01/17 16:13 Lab Results 03/01/17 03/01/17 03/01/17 Range/Units 16:13 16:13 16:13 WBC 7.2 (4.3-11.1) K/mcL RBC 3.76 L (3.82-4.97) M/mcL Hgb 11.2 L (11.5-15.4) g/dL Hct 36.3 (35.3-44.9) % MCV 96.5 (83.0-100.0) fL MCH 29.8 (28.0-33.3) pg MCHC 30.9 L (31.6-35.5) g/dL RDW 17.1 H (11.5-14.5) % Plt Count 334 (140-400) K/mcL MPV 9.9 (9.4-12.4) fL Immature Gran % 0.4 (0-4) % Seg Neutrophils % 71.0 % Lymphocytes % 17.4 % Monocytes % 9.0 % Eosinophils % 1.5 % Basophils % 0.7 % Neutrophils # 5.1 (1.6-8.9) K/mcL Lymphocytes # 1.3 (0.6-4.6) K/mcL Monocytes # 0.7 (0.0-1.3) K/mcL Eosinophils # 0.1 (0.0-0.6) K/mcL Basophils # 0.1 (0.0-0.2) K/mcL Immature Plt Fraction 3.1 (1.1-6.1) % PT 11.7 (9.4-12.1) Seconds INR 1.1 APTT 28.5 (26.0-36.0) Seconds Sodium 139 (136-145) mEq/L Potassium 3.7 (3.5-4.5) mEq/L Chloride 109 (98-109) mEq/L Carbon Dioxide 23 (19-29) mEq/L BUN 20 (7-20) mg/dL Creatinine 0.80 (0.57-1.11) mg/dL Est GFR ( Amer) > 60 (> 60) Est GFR (Non-Af Amer) > 60 (> 60) BUN/Creatinine Ratio 25 (6-26) Glucose 87 (70-99) mg/dL Calculated Osmolality 290 (280-300) Lactic Acid (0.5-2.2) mmol/L Calcium 8.5 L (8.6-10.8) mg/dL Troponin I (0-0.03) ng/mL Lipase 13 (8-78) Units/L Blood Type Antibody Screen 03/01/17 03/01/17 03/01/17 Range/Units 16:13 16:13 16:13 WBC (4.3-11.1) K/mcL RBC (3.82-4.97) M/mcL Hgb (11.5-15.4) g/dL Hct (35.3-44.9) % MCV (83.0-100.0) fL MCH (28.0-33.3) pg MCHC (31.6-35.5) g/dL RDW (11.5-14.5) % Plt Count (140-400) K/mcL MPV (9.4-12.4) fL Immature Gran % (0-4) % Seg Neutrophils % % Lymphocytes % % Monocytes % % Eosinophils % % Basophils % % Neutrophils # (1.6-8.9) K/mcL Lymphocytes # (0.6-4.6) K/mcL Monocytes # (0.0-1.3) K/mcL Eosinophils # (0.0-0.6) K/mcL Basophils # (0.0-0.2) K/mcL Immature Plt Fraction (1.1-6.1) % PT (9.4-12.1) Seconds INR APTT (26.0-36.0) Seconds Sodium (136-145) mEq/L Potassium (3.5-4.5) mEq/L Chloride (98-109) mEq/L Carbon Dioxide (19-29) mEq/L BUN (7-20) mg/dL Creatinine (0.57-1.11) mg/dL Est GFR ( Amer) (> 60) Est GFR (Non-Af Amer) (> 60) BUN/Creatinine Ratio (6-26) Glucose (70-99) mg/dL Calculated Osmolality (280-300) Lactic Acid 1.3 (0.5-2.2) mmol/L Calcium (8.6-10.8) mg/dL Troponin I 0.01 (0-0.03) ng/mL Lipase (8-78) Units/L Blood Type A POSITIVE Antibody Screen NEGATIVE - Radiology Data Radiology results reviewed: Yes I reviewed the patient's radiology results. Chest X-Ray 03/01/17 15:06 IMPRESSION: 1. No acute cardiopulmonary disease. 2. Large hiatal hernia. D/ / 03/01/2017 15:22:29 Lida Palmer MD / fidencio Interpreting Provider: Lida Palmer MD Abdomen/Pelvis CT 03/01/17 15:20 IMPRESSION: 1. No acute abnormality in the abdomen or pelvis. No explanation for the patient's marked stool. 2. Status post cholecystectomy and hysterectomy. D/ / Adrian Bro MD / Adrian Bro MD Interpreting Provider: Adrian Bro MD - EKG Data EKG attestation: Yes I reviewed and interpreted this EKG. EKG shows normal: sinus rhythm Rate: tachycardia (Rate of 107) Interpretation: no acute changes
[2017-03-01 16:24] LABS: Basophils # 0.1 K/mcL (0.0-0.2); Basophils % 0.7 %; Eosinophils # 0.1 K/mcL (0.0-0.6); Eosinophils % 1.5 %; Hematocrit 36.3 % (35.3-44.9); Hemoglobin 11.2 g/dL (11.5-15.4); Immature Granulocytes % 0.4 % (0-4); Immature Platelets 3.1 % (1.1-6.1); Lymphocytes # 1.3 K/mcL (0.6-4.6); Lymphocytes % 17.4 %; Mean Corpuscular HGB Conc 30.9 g/dL (31.6-35.5); Mean Corpuscular Hemoglobin 29.8 pg (28.0-33.3); Mean Corpuscular Volume 96.5 fL (83.0-100.0); Mean Platelet Volume 9.9 fL (9.4-12.4); Monocytes # 0.7 K/mcL (0.0-1.3); Neutrophils # 5.1 K/mcL (1.6-8.9); Platelet Count 334 K/mcL (140-400); Red Blood Count 3.76 M/mcL (3.82-4.97); Red Cell Distribution Width 17.1 % (11.5-14.5)
[2017-03-01 16:37] LABS: BUN/Creatinine Ratio 25 (6-26); Blood Urea Nitrogen 20 mg/dL (7-20); Calcium 8.5 mg/dL (8.6-10.8); Carbon Dioxide 23 mEq/L (19-29); Chloride 109 mEq/L (98-109); Glucose 87 mg/dL (70-99); INR 1.1; Lipase 13 Units/L (8-78); Osmolality,Calculated 290 (280-300); Potassium 3.7 mEq/L (3.5-4.5); Prothrombin Time 11.7 Seconds (9.4-12.1); Sodium 139 mEq/L (136-145); eGFR For African Americans > 60 (> 60); eGFR For Non-African Americans > 60 (> 60)
[2017-03-01 16:40] LABS: Activated Partial Thrombo Time 28.5 Seconds (26.0-36.0)
[2017-03-01] MEDS ORDERED: *HR* HYDROmorphone (PF) 1 MG/ML SYRINGE IVP ONE (17:26)
--- NOTE | 2017-03-01 19:20 | Event Note ---
Date of Encounter: 03/01/17 Time of Encounter: 19:17 Patient seen and examined with nurse practitioner. Patient presents with coffee ground emesis and Melena. Recent hospitalization with similar and had EGD which showed gastric ulcer. She is on Protonix b.i.d. Initial hemoglobin 11.2, Slightly lower than baseline. Hemodynamically stable. Start protonix drip gastroenterology service notified. Full code
[2017-03-01] MEDS ORDERED: Naloxone 0.4 MG/ML INJ IVP PRN (19:26)
--- NOTE | 2017-03-01 19:37 | Internal Med History&Physical ---
Date of Encounter: 03/01/17 Time of Encounter: 19:33 Assessment and Plan (1) Upper GI bleed Current visit: Yes Status: Acute Patient reporting coffee-ground emesis, and black stools. She has a history of multiple GI bleeds in the past. Hemoglobin stable somewhat stable at 11.2, down from previous of 12.0. Type and cross obtained. Check hemoglobin and hematocrit every 6 hours. Nothing by mouth after midnight. Her jury consulted for endoscopy. (2) Gastric ulcer Current visit: Yes Status: Acute Previous EGD in November showed gastric ulcer. Patient reporting coffee-ground emesis and dark stools. IV Protonix drip Nothing by mouth after midnight for possible scopes Surgery consultation for endoscopy. Qualifiers: Gastric ulcer chronicity: acute Gastric ulcer complication status: with hemorrhage Qualified Code(s): K25.0 - Acute gastric ulcer with hemorrhage (3) Tobacco abuse Current visit: No Status: Chronic Smoking cessation education ordered, nicotine patch ordered (4) DVT prophylaxis Current visit: No Status: Acute Sequential compression devices Pharmacologic prophylaxis contraindicated in suspected active bleed Internal Medicine - H&P: HPI Chief complaint: coffee emesis and dark stools Admitted From: Emergency Dept Plans for Post Hospital Care: Home History of present illness: Ms. Camp is a 61 year old female with history of COPD, bipolar disorder, anxiety, and multiple episodes of GI bleeding, presented to the emergency department today with complaints of abdominal pain, black emesis, and dark stools, weakness, nausea, and lightheadedness. Patient reports that yesterday she vomited 3 times and it was black, similar to coffee grounds. She has been nauseous today, and her stools have been dark. She has had dyspnea on exertion , weakness, and lightheadedness. She has multiple previous episodes of GI bleed being, most recently in November. She denies any chest pain, palpitations, fever, chills, sweats. Evaluation in emergency department showed an hemoglobin of 11.2 down from previous of 12.0. Lactate was normal 1.3, troponin was normal at 0.01. Chest x-ray showed no acute cardiopulmonary disease she had a large hiatal hernia. CT of the abdomen and pelvis showed no acute abnormality. On exam, patient alert and oriented, in no acute distress heart had regular rate and rhythm, lungs are clear bilaterally to auscultation. Abdomen was soft , mildly tender to palpation diffusely. Past Med Surg Social Fam HX - Past Medical History Medical history: COPD, fibromyalgia, GI bleed, other Psychiatric history: anxiety, bipolar, depression, PTSD, previous psychiatric hospitalization - Past Surgical History Surgical History: cholecystectomy, hysterectomy, other - Social History Smoking Status: Current every day smoker Smokeless Tobacco Status: No Alcohol use: none Drug use: none - Family History Mother Adopted: No Family Member Ethnicity: Non- Living Status: Hx Family Cardiac Disorders: Yes (MT) Hx Family Respiratory Disorders: Yes (COPD) Hx Family Cancer: Yes (Cervical) Hx Family GI Disorders: No Hx Family Endocrine Disorder: Yes (DM) Hx Family Neuromuscular Disorders: No Hx Family Neurologic Disorders: No Hx Family HEENT Disorders: No Hx Family Autoimmune Disorders: No Father Living Status: Hx Family Cardiac Disorders: No Hx Family Respiratory Disorders: No Hx Family Cancer: Yes (Throat) Hx Family Endocrine Disorder: Yes (DM) Internal Medicine - H&P: Meds Albuterol Sulfate [Proair Hfa] 2 puff IH Q4H PRN 09/01/16 [History] Budesonide/Formoterol 160/4.5 [Symbicort 160/4.5] 2 puff IH BID 09/01/16 [ History] Doxepin [Sinequan] 100 mg PO HS 09/01/16 [History] Gabapentin [Neurontin] 100 mg PO TID 09/01/16 [History] Promethazine [Phenergan] 25 mg PO HS 09/01/16 [History] Acetaminophen [Tylenol] 650 mg PO Q6HR PRN #0 tablet 12/12/16 [Rx] Nicotine Patch [Nicoderm] 14 mg TD DAILY #30 patch.td24 12/12/16 [Rx] ALPRAZolam [Xanax 1 MG Tablet] 1 mg PO TID 03/01/17 [History] Protonix 03/01/17 [History] Allergies Zolpidem [From Ambien] Allergy (Verified 01/27/17 10:51) Agitated eszopiclone [From Lunesta] Adverse Reaction (Verified 01/27/17 10:51) Gastrointestinal Upset All Systems PM: A 10-system review of systems was performed and is negative for pertinent findings except as documented above in the HPI. - Constitutional Constitutional: weakness, no chills, no fever(s), no night sweats - EENT Eyes: no change in vision, no discharge, no pain, no photophobia Ears: no ear discharge, no ear pain, no tinnitus Nose, mouth and throat: no dysphagia, no nasal discharge, no neck pain, no sore throat - Cardiovascular Cardiovascular ROS IM: dyspnea on exertion, lightheadedness, no chest pain, no diaphoresis, no dyspnea, no palpitations, no syncope - Respiratory Respiratory: no cough, no dyspnea, no wheezing, no excessive phlegm production - Gastrointestinal Gastrointestinal: abdominal pain, hematemesis, melena, vomiting, no diarrhea, no hematochezia, no nausea - Genitourinary Genitourinary: no change in urinary stream, no dysuria, no flank pain, no hematuria - Musculoskeletal Musculoskeletal ROS IM: no numbness, no tingling - Integumentary Integumentary IM: no rash, no unusual bruising - Neurological Neurological ROS: no confusion, no convulsions, no focal weakness, no numbness, no tingling, no tremor(s) - Hematologic/Lymphatic Hematologic/Lymphatic: no easy bruising - Constitutional Vitals: Temp Pulse Resp BP Pulse Ox 97.7 F 95 18 114/81 95 03/01/17 19:04 03/01/17 19:04 03/01/17 19:04 03/01/17 19:04 03/01/17 19:04 General appearance: Present: A&O X 3, morbidly obese, pleasant, no acute distress - Head Head exam: Present: atraumatic, normocephalic - Eye Eye exam: Present: PERRL, conjuntiva pink, sclera anicteric Pupils: Present: PERRL - Neck Neck exam general surgery: Present: supple, trachea midline. Absent: lymphadenopathy - Respiratory Respiratory exam: Present: CTAB. Absent: accessory muscle use, rales, rhonchi, wheezes - Cardiovascular Cardiovascular exam: Present: RRR, +S1, +S2. Absent: diastolic murmur, gallop, rubs, systolic murmur - GI/Abdominal GI/Abdominal exam: Present: normal bowel sounds, soft, tenderness, no peritoneal signs. Absent: distended - Extremities Exam Extremities exam: Present: warm, radial pulses palpable and symetrical. Absent : calf tenderness, cyanotic, pedal edema - Neurological Exam Neurological exam: Present: CN II-XII intact, oriented X3, no focal deficits. Absent: pronater drift, facial droop, speech deficit - Skin Skin exam: Present: dry, intact Internal Med - H&P Results - Labs CBC & Chem 7: 03/01/17 19:28 03/01/17 16:13 Labs: All Lab Results (24 Hours) 03/01/17 03/01/17 03/01/17 Range/Units 16:13 16:13 16:13 WBC 7.2 (4.3-11.1) K/mcL RBC 3.76 L (3.82-4.97) M/mcL Hgb 11.2 L (11.5-15.4) g/dL Hct 36.3 (35.3-44.9) % MCV 96.5 (83.0-100.0) fL MCH 29.8 (28.0-33.3) pg MCHC 30.9 L (31.6-35.5) g/dL RDW 17.1 H (11.5-14.5) % Plt Count 334 (140-400) K/mcL MPV 9.9 (9.4-12.4) fL Immature Gran % 0.4 (0-4) % Seg Neutrophils % 71.0 % Lymphocytes % 17.4 % Monocytes % 9.0 % Eosinophils % 1.5 % Basophils % 0.7 % Neutrophils # 5.1 (1.6-8.9) K/mcL Lymphocytes # 1.3 (0.6-4.6) K/mcL Monocytes # 0.7 (0.0-1.3) K/mcL Eosinophils # 0.1 (0.0-0.6) K/mcL Basophils # 0.1 (0.0-0.2) K/mcL Immature Plt Fraction 3.1 (1.1-6.1) % PT 11.7 (9.4-12.1) Seconds INR 1.1 APTT 28.5 (26.0-36.0) Seconds Sodium 139 (136-145) mEq/L Potassium 3.7 (3.5-4.5) mEq/L Chloride 109 (98-109) mEq/L Carbon Dioxide 23 (19-29) mEq/L BUN 20 (7-20) mg/dL Creatinine 0.80 (0.57-1.11) mg/dL Est GFR ( Amer) > 60 (> 60) Est GFR (Non-Af Amer) > 60 (> 60) BUN/Creatinine Ratio 25 (6-26) Glucose 87 (70-99) mg/dL Calculated Osmolality 290 (280-300) Lactic Acid (0.5-2.2) mmol/L Calcium 8.5 L (8.6-10.8) mg/dL Troponin I (0-0.03) ng/mL Lipase 13 (8-78) Units/L Blood Type Antibody Screen 03/01/17 03/01/17 03/01/17 Range/Units 16:13 16:13 16:13 WBC (4.3-11.1) K/mcL RBC (3.82-4.97) M/mcL Hgb (11.5-15.4) g/dL Hct (35.3-44.9) % MCV (83.0-100.0) fL MCH (28.0-33.3) pg MCHC (31.6-35.5) g/dL RDW (11.5-14.5) % Plt Count (140-400) K/mcL MPV (9.4-12.4) fL Immature Gran % (0-4) % Seg Neutrophils % % Lymphocytes % % Monocytes % % Eosinophils % % Basophils % % Neutrophils # (1.6-8.9) K/mcL Lymphocytes # (0.6-4.6) K/mcL Monocytes # (0.0-1.3) K/mcL Eosinophils # (0.0-0.6) K/mcL Basophils # (0.0-0.2) K/mcL Immature Plt Fraction (1.1-6.1) % PT (9.4-12.1) Seconds INR APTT (26.0-36.0) Seconds Sodium (136-145) mEq/L Potassium (3.5-4.5) mEq/L Chloride (98-109) mEq/L Carbon Dioxide (19-29) mEq/L BUN (7-20) mg/dL Creatinine (0.57-1.11) mg/dL Est GFR ( Amer) (> 60) Est GFR (Non-Af Amer) (> 60) BUN/Creatinine Ratio (6-26) Glucose (70-99) mg/dL Calculated Osmolality (280-300) Lactic Acid 1.3 (0.5-2.2) mmol/L Calcium (8.6-10.8) mg/dL Troponin I 0.01 (0-0.03) ng/mL Lipase (8-78) Units/L Blood Type A POSITIVE Antibody Screen NEGATIVE - Diagnostic Studies Chest x-ray Additional comments: Chest X-Ray 03/01/17 15:06 IMPRESSION: 1. No acute cardiopulmonary disease. 2. Large hiatal hernia. D/ / 03/01/2017 15:22:29 Lida Palmer MD / fidencio Interpreting Provider: Lida Palmer MD CT scan - abdomen Additional comments: Abdomen/Pelvis CT 03/01/17 15:20 IMPRESSION: 1. No acute abnormality in the abdomen or pelvis. No explanation for the patient's marked stool. 2. Status post cholecystectomy and hysterectomy. D/ / Adrian Bro MD / Adrian Bro MD Interpreting Provider: Adrian Bro MD
[2017-03-01 19:53] LABS: Hematocrit 35.2 % (35.3-44.9)
[2017-03-01] MEDS: Pantoprazole 40 MG in 0.9 % Sodium Chloride Mini Bag 100 ML IVC SCH (19:55)
[2017-03-01] MEDS: Acetaminophen 325 MG TABLET PO PRN (19:55)
[2017-03-01] MEDS: ALPRAZolam 1 MG TABLET PO SCH (20:03)
[2017-03-01] MEDS: Gabapentin 100 MG CAPSULE PO SCH (20:03)
[2017-03-01] MEDS: Budesonide/Formoterol 160/4.5 MDI IH SCH (20:22)
[2017-03-01] MEDS ORDERED: Pantoprazole 40 MG VIAL IVP SCH (21:00)
[2017-03-01] MEDS: Nicotine 14 MG PATCH.TD24 TD SCH (21:53)
[2017-03-02] MEDS: Pantoprazole 40 MG in 0.9 % Sodium Chloride Mini Bag 100 ML IVC SCH ×5 (00:45→20:04)
[2017-03-02] MEDS: Ondansetron 4 MG/2 ML VIAL IVP PRN ×2 (02:38→13:57)
[2017-03-02] MEDS: *HR* HYDROmorphone (PF) 1 MG/ML SYRINGE IVP PRN ×2 (02:40→06:40)
[2017-03-02] MEDS: Acetaminophen 325 MG TABLET PO PRN ×2 (05:59→20:04)
[2017-03-02 06:02] LABS: Basophils # 0.1 K/mcL (0.0-0.2); Basophils % 0.9 %; Eosinophils # 0.2 K/mcL (0.0-0.6); Eosinophils % 2.7 %; Hematocrit 32.6 % (35.3-44.9); Hemoglobin 9.9 g/dL (11.5-15.4); Immature Granulocytes % 0.4 % (0-4); Lymphocytes # 1.2 K/mcL (0.6-4.6); Lymphocytes % 21.7 %; Mean Corpuscular HGB Conc 30.4 g/dL (31.6-35.5); Mean Corpuscular Hemoglobin 29.9 pg (28.0-33.3); Mean Corpuscular Volume 98.5 fL (83.0-100.0); Mean Platelet Volume 10.6 fL (9.4-12.4); Monocytes # 0.6 K/mcL (0.0-1.3); Monocytes % 9.9 %; Neutrophils # 3.6 K/mcL (1.6-8.9); Platelet Count 293 K/mcL (140-400); Red Blood Count 3.31 M/mcL (3.82-4.97); Red Cell Distribution Width 16.7 % (11.5-14.5); Segmented Neutrophils % 64.4 %
[2017-03-02 06:10] LABS: BUN/Creatinine Ratio 24 (6-26); Blood Urea Nitrogen 21 mg/dL (7-20); Calcium 8.5 mg/dL (8.6-10.8); Carbon Dioxide 25 mEq/L (19-29); Chloride 109 mEq/L (98-109); Glucose 103 mg/dL (70-99); Osmolality,Calculated 293 (280-300); Potassium 3.6 mEq/L (3.5-4.5); Sodium 140 mEq/L (136-145); eGFR For African Americans > 60 (> 60); eGFR For Non-African Americans > 60 (> 60)
[2017-03-02] MEDS: Nicotine 14 MG PATCH.TD24 TD SCH (07:41)
[2017-03-02] MEDS: ALPRAZolam 1 MG TABLET PO SCH ×3 (07:43→20:05)
[2017-03-02] MEDS: Gabapentin 100 MG CAPSULE PO SCH ×3 (07:43→20:04)
[2017-03-02] MEDS: Budesonide/Formoterol 160/4.5 MDI IH SCH ×2 (08:03→20:18)
[2017-03-02] MEDS: *HR* Morphine 2 MG/ML SYRINGE IVP PRN ×3 (10:08→17:54)
--- NOTE | 2017-03-02 11:20 | Internal Med Progress Note ---
Date of Encounter: 03/02/17 Time of Encounter: 11:18 - Assessment and plan (1) Upper GI bleed Current Visit: Yes Status: Acute Assessment and plan: Patient admitted with an episode of coffee-ground emesis and few episodes of hematochezia per patient. Continue IV Protonix drip. No further episodes since admission. Recent EGD showed nonbleeding gastric ulcer. Patient takes PPI at home is not compliant with Carafate due to GI distress according to her. GI consult noted, possible EGD tomorrow. Nothing by mouth past midnight. (2) Anemia Current Visit: Yes Status: Chronic Assessment and plan: Baseline hemoglobin noted to be around 11, hemoglobin today is 9.9. Likely related to GI bleed. Plan for EGD tomorrow. Qualifiers: Anemia type: other cause Other causes of anemia: other cause, not classified Qualified Code(s): D64.89 - Other specified anemias (3) Anxiety Current Visit: Yes Status: Chronic (4) PTSD (post-traumatic stress disorder) Current Visit: Yes Status: Chronic (5) COPD (chronic obstructive pulmonary disease) Current Visit: Yes Status: Chronic Assessment and plan: Not in acute exacerbation. Continues to smoke as an outpatient. Continue when necessary bronchodilators and supplemental oxygen. Qualifiers: COPD type: chronic bronchitis Chronic bronchitis type: unspecified Qualified Code(s): J42 - Unspecified chronic bronchitis (6) HTN (hypertension) Current Visit: Yes Status: Chronic Qualifiers: Hypertension type: essential hypertension Qualified Code(s): I10 - Essential (primary) hypertension (7) Tobacco abuse Current Visit: Yes Status: Chronic Assessment and plan: Patient reports that she can only tolerate nicotine gum for smoking cessation, which is not covered by her insurance. Continue nicotine transdermal patch while in the hospital. (8) Obesity (BMI 30-39.9) Current Visit: Yes Status: Chronic - Subjective Interval history: Improved hematemesis; reports epigastric and central abdominal pain; no bowel movements or rectal bleeding since admission; currently on IV Protonix drip; requests for liquids; - Constitutional Vitals: Temp Pulse Resp BP Pulse Ox 98.0 F 92 18 104/67 90 03/02/17 06:30 03/02/17 06:30 03/02/17 08:03 03/02/17 06:30 03/02/17 10:42 General appearance: Present: A&O X 3, obese, answers questions appropriately - Respiratory Respiratory exam: Present: CTAB, rhonchi (scattered rhonchi B/L). Absent: accessory muscle use, rales, wheezes - Cardiovascular Cardiovascular exam: Present: RRR, +S1, +S2. Absent: diastolic murmur, gallop, rubs, systolic murmur - GI/Abdominal GI/Abdominal exam: Present: normal bowel sounds, soft (epigastric tenderness, no guarding/rigidity), no peritoneal signs. Absent: distended, tenderness - Extremities Exam Extremities exam: Present: full ROM, warm, radial pulses palpable and symetrical. Absent: calf tenderness, cyanotic, pedal edema Internal Medicine: Result - Labs CBC & Chem 7: 03/02/17 05:24 03/02/17 05:24 Labs: Short CBC 03/01/17 03/02/17 Range/Units 19:28 05:24 WBC 5.6 (4.3-11.1) K/mcL Hgb 11.0 L 9.9 L (11.5-15.4) g/dL Hct 35.2 L 32.6 L (35.3-44.9) % Plt Count 293 (140-400) K/mcL Neutrophils # 3.6 (1.6-8.9) K/mcL BMP 03/02/17 05:24 Sodium 140 Potassium 3.6 Chloride 109 Carbon Dioxide 25 BUN 21 H Creatinine 0.86 Glucose 103 H Calcium 8.5 L - ABG Interpretation ABG results: PT/INR, D-dimer PT 11.7 Seconds (9.4-12.1) 03/01/17 16:13 - VTE Documentation of Mechanical Device: Intermittent pneumatic compression device Consult Discharge Plan - Plan Referrals: Lida Perez DO [Primary Care Provider] -
--- NOTE | 2017-03-02 13:21 | Event Note ---
Date of Encounter: 03/02/17 Time of Encounter: 13:20 Chart reviewed, full consult tomorrow. Plan for EGD tomorrow due to melena and coffee-ground emesis. NPO at midnight.
--- NOTE | 2017-03-02 16:33 | Electrocardiograph Report ---
[place] [id number] Test Date: 2017-03-01 Pat Name: Ricky Camp Department: 102 Room: 3A42 Gender: F Renal Medicine Specialist: Liang : 1955 Requested By: Tenzin Andrade Order Number: [id number] Reading MD: Kristin Mays Measurements Intervals [place] Rate: 107 P: 12 OR: 132 QRS: -13 QRSD: 88 T: 78 QT: 339 QTc: 401 Interpretive Statements SINUS TACHYCARDIA LEFTWARD AXIS LEFT VENTRICULAR HYPERTROPHY AND ST-T CHANGE Electronically Signed On 03-02-2017 16:31:29 EDT by Kristin Mays
[2017-03-03] MEDS: Pantoprazole 40 MG in 0.9 % Sodium Chloride Mini Bag 100 ML IVC SCH ×3 (01:19→11:01)
[2017-03-03] MEDS: Acetaminophen 325 MG TABLET PO PRN (04:08)
[2017-03-03] MEDS: *HR* Morphine 2 MG/ML SYRINGE IVP PRN ×3 (05:53→15:51)
[2017-03-03] MEDS: Ondansetron 4 MG/2 ML VIAL IVP PRN ×2 (05:53→15:52)
[2017-03-03] MEDS: ALPRAZolam 1 MG TABLET PO SCH ×3 (07:41→20:28)
[2017-03-03] MEDS: Gabapentin 100 MG CAPSULE PO SCH ×3 (07:41→20:28)
[2017-03-03] MEDS: Nicotine 14 MG PATCH.TD24 TD SCH (07:41)
[2017-03-03 08:59] LABS: Basophils % 0.5 %; Eosinophils # 0.1 K/mcL (0.0-0.6); Eosinophils % 1.3 %; Hematocrit 30.5 % (35.3-44.9); Hemoglobin 9.4 g/dL (11.5-15.4); Immature Granulocytes % 0.5 % (0-4); Lymphocytes # 0.5 K/mcL (0.6-4.6); Lymphocytes % 8.3 %; Mean Corpuscular HGB Conc 30.8 g/dL (31.6-35.5); Mean Corpuscular Hemoglobin 30.3 pg (28.0-33.3); Mean Corpuscular Volume 98.4 fL (83.0-100.0); Mean Platelet Volume 10.6 fL (9.4-12.4); Monocytes # 0.3 K/mcL (0.0-1.3); Monocytes % 5.3 %; Neutrophils # 5.4 K/mcL (1.6-8.9); Platelet Count 264 K/mcL (140-400); Red Cell Distribution Width 16.2 % (11.5-14.5); Segmented Neutrophils % 84.1 %
[2017-03-03] MEDS: Budesonide/Formoterol 160/4.5 MDI IH SCH ×2 (10:29→20:32)
--- NOTE | 2017-03-03 12:29 | Gastroenterology Consult Note ---
<SongAbe nails Hans - Last Filed: 03/03/17 12:34> Date of Encounter: 03/03/17 Time of Encounter: 11:30 - Assessment and plan (1) Anemia Current Visit: No Status: Chronic Assessment and plan: Secondary to GI bleeding. Continue to monitor CBC and transfuse PRBC as needed. Qualifiers: Anemia type: unspecified type Qualified Code(s): D64.9 - Anemia, unspecified (2) Upper GI bleed Current Visit: Yes Status: Acute Assessment and plan: Pt with 2 recent EGDs with gastric ulcers. Plan for repeat EGD today. Keep NPO. Continue PPI gtt. (3) Melena Current Visit: No Status: Acute Assessment and plan: Plan for EGD today. (4) Coffee ground emesis Current Visit: No Status: Acute Assessment and plan: Plan for EGD today. Continue Zofran PRN. - Time Spent With Patient Total time spent is greater than 50% in coordination of care (as documented) at patient's floor/unit and/or counseling patient: GI History of Present Illness - Data of Consult Patient: known to practice within the last 3 years Consult date: 03/03/17 Requesting Physician: Sebastien Goddard - Consult Narrative Reason for consult: GI bleeding History of present illness: Ms. Camp is a 61 year old female with PMHx of COPD, esophagitis, peptic ulcer disease, bipolar disorder, fibromyalgia, and multiple episodes of GI bleeding, presented to the ED with complaints of abdominal pain, black emesis, dark stools , weakness, nausea, and lightheadedness. Pt reports the day before admission she vomited 3 times and it was black, similar to coffee grounds. The day of admission she reported dark stools. She was admitted in November 2016 with similar symptoms, and completed EGD and colonoscopy at that time and was being treated with PPI. Procedure: EGD 12/11/2016 Dr. Mae: Non-bleeding gastric ulcer Colonoscopy 12/05/2016: Poor prep, internal hemorrhoids EGD 12/05/2016 Dr. Mae: LA Grade B reflux esophagitis, gastric ulcers, gastritis NSAIDs: None Anticoagulation: None Past Med Surg Social Fam HX - Past Medical History Medical history: COPD, fibromyalgia, GI bleed, other Psychiatric history: anxiety, bipolar, depression, PTSD, previous psychiatric hospitalization - Past Surgical History Surgical History: cholecystectomy, hysterectomy, other - Social History Smoking Status: Current every day smoker Packs per day: 1 Smokeless Tobacco Status: No Alcohol use: none Drug use: none - Family History Mother Adopted: No Family Member Ethnicity: Non- Living Status: Hx Family Cardiac Disorders: Yes ([place]) Hx Family Respiratory Disorders: Yes (COPD) Hx Family Cancer: Yes (Cervical) Hx Family GI Disorders: No Hx Family Endocrine Disorder: Yes (DM) Hx Family Neuromuscular Disorders: No Hx Family Neurologic Disorders: No Hx Family HEENT Disorders: No Hx Family Autoimmune Disorders: No Father Living Status: Hx Family Cardiac Disorders: No Hx Family Respiratory Disorders: No Hx Family Cancer: Yes (Throat) Hx Family Endocrine Disorder: Yes (DM) - Gastrointestinal Gastrointestinal: Present: as per HPI - Constitutional Constitutional: as per HPI - EENT Eyes: as per HPI Ears: Present: as per HPI Nose, mouth and throat: Present: as per HPI - Cardiovascular Cardiovascular ROS: Present: as per HPI - Respiratory Respiratory IM: Present: as per HPI - Genitourinary Genitourinary: Absent: change in color, Urinary frequency - Neurological ROS Neurological GI: Present: as per HPI - Hematologic/Lymphatic Hematologic/Lymphatic pediatric: Present: as per HPI - Musculoskeletal Musculoskeletal ROS GI: Present: as per HPI - Integumentary Integumentary GI: Present: as per HPI - Psychiatric ROS Psychiatric GI: Present: as per HPI - Endocrine Endocrine IM: Present: as per HPI - Constitutional Vitals: Temp Pulse Resp BP Pulse Ox 98.7 F 90 18 116/77 90 03/03/17 12:20 03/03/17 12:20 03/03/17 12:20 03/03/17 12:20 03/03/17 12:20 General appearance: Present: cooperative, A&O X 3, no acute distress, answers questions appropriately - Head Head exam: Present: atraumatic, normocephalic - Eye Eye exam: Present: normal appearance, sclera anicteric - ENT ENT exam: Present: mucous membranes dry - Neck Neck exam general surgery: Present: normal inspection, trachea midline - Respiratory Respiratory exam: Present: decreased breath sounds, CTAB. Absent: rales, rhonchi - Cardiovascular Cardiovascular exam: Present: RRR, +S1, +S2 - GI/Abdominal GI/Abdominal exam: Present: soft, tenderness (epigastric), no peritoneal signs. Absent: distended, firm, guarding - Rectal Rectal exam: Present: deferred - Extremities Exam Extremities exam: Present: warm - Neurological Exam Neurological exam: Present: no focal deficits - Psychiatric Psychiatric exam: Present: normal affect, normal mood - Skin Skin exam: Present: dry, intact, normal color, warm Results - Labs CBC & Chem 7: 03/03/17 05:30 03/02/17 05:24 Labs: Last Result Calcium 8.5 mg/dL (8.6-10.8) L 03/02/17 05:24 Troponin I 0.01 ng/mL (0-0.03) 03/01/17 16:13 Entire Visit Hgb 9.4 g/dL (11.5-15.4) L 03/03/17 05:30 Hct 30.5 % (35.3-44.9) L 03/03/17 05:30 PT 11.7 Seconds (9.4-12.1) 03/01/17 16:13 Lipase 13 Units/L (8-78) 03/01/17 16:13 - ABG ABG results: PT/INR, D-dimer PT 11.7 Seconds (9.4-12.1) 03/01/17 16:13 Consult Discharge Plan - Plan Referrals: Lida Perez DO [Primary Care Provider] - <Rajendra Mae - Last Filed: 03/03/17 14:27> Date of Encounter: 03/03/17 Time of Encounter: 13:45 - Time Spent With Patient Total time spent is greater than 50% in coordination of care (as documented) at patient's floor/unit and/or counseling patient: GI History of Present Illness - Data of Consult Requesting Physician: Sebastien Goddard - Consult Narrative History of present illness: Ms. Camp is a 61 year old female - Constitutional Vitals: Temp Pulse Resp BP Pulse Ox 98.7 F 90 18 116/77 90 03/03/17 12:20 03/03/17 12:20 03/03/17 12:20 03/03/17 12:20 03/03/17 12:20 Results - Labs CBC & Chem 7: 03/03/17 05:30 03/02/17 05:24 Labs: Last Result Calcium 8.5 mg/dL (8.6-10.8) L 03/02/17 05:24 Troponin I 0.01 ng/mL (0-0.03) 03/01/17 16:13 Entire Visit Hgb 9.4 g/dL (11.5-15.4) L 03/03/17 05:30 Hct 30.5 % (35.3-44.9) L 03/03/17 05:30 PT 11.7 Seconds (9.4-12.1) 03/01/17 16:13 Lipase 13 Units/L (8-78) 03/01/17 16:13 - ABG ABG results: PT/INR, D-dimer PT 11.7 Seconds (9.4-12.1) 03/01/17 16:13 - Attending Attestation I examined this patient and my medical decision-making was reviewed with the [employer]/PA/Advanced Practice Nurse/Resident Physician. I agree with the documented findings, disposition and treatment plan as described except to the extent set forth below. Patient with hematemesis and black stool. Plan for EGD.
--- NOTE | 2017-03-03 12:50 | Anesthesia Evaluation PreOp ---
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: Other (Anxiety, Bipolar, Depression, PTSD) Other Medical History: Other (Upper GI bleed, Fibromyalgia) Anesthesia History: No Prior Anesthetic Complications, Past Anesthesia (GB, MARAH) : No Alcohol Use: none Drug use: none Medications and Allergies Albuterol Sulfate [Proair Hfa] 2 puff IH Q4H PRN 09/01/16 [History] Budesonide/Formoterol 160/4.5 [Symbicort 160/4.5] 2 puff IH BID 09/01/16 [ History] Gabapentin [Neurontin] 100 mg PO TID 09/01/16 [History] Promethazine [Phenergan] 25 mg PO HS PRN 09/01/16 [History] Acetaminophen [Tylenol] 650 mg PO Q6HR PRN #0 tablet 12/12/16 [Rx] Nicotine Patch [Nicoderm] 14 mg TD DAILY #30 patch.td24 12/12/16 [Rx] ALPRAZolam [Xanax 1 MG Tablet] 1 mg PO TID PRN 03/01/17 [History] Doxepin HCl [Doxepin HCl] 100 mg PO HS 03/02/17 [History] Duloxetine HCl [Cymbalta] 120 mg PO DAILY 03/02/17 [History] Ferrous Sulfate [Iron] 325 mg PO BID 03/02/17 [History] Pantoprazole Sodium [Protonix] 40 mg PO BID 03/02/17 [History] risperiDONE [Risperidone] 1 mg PO DAILY 03/02/17 [History] Allergies Zolpidem [From Ambien] Allergy (Verified 01/27/17 10:51) Agitated eszopiclone [From Lunesta] Adverse Reaction (Verified 01/27/17 10:51) Gastrointestinal Upset - Meds/Allergy Pre-op Review Medications Reviewed: Yes Allergies Reviewed: Yes Beta Blockers on Current Med List: No Anesthesia Results - Labs 03/03/17 05:30 03/02/17 05:24 - Imaging EKG: image reviewed (ST) Anesthesia Exam O2 Sat Weight 88.8 kg O2 Sat by Pulse Oximetry 90 O2 Sat by Pulse Oximetry 95 O2 Sat by Pulse Oximetry 96 O2 Sat by Pulse Oximetry 96 O2 Sat by Pulse Oximetry 94 O2 Sat by Pulse Oximetry 95 O2 Sat by Pulse Oximetry 92 O2 Sat by Pulse Oximetry 95 O2 Sat by Pulse Oximetry 97 O2 Sat by Pulse Oximetry 94 O2 Sat by Pulse Oximetry 94 Vital Signs Temp Pulse Resp BP Pulse Ox 97.7 F 115 20 118/77 98 03/01/17 14:49 03/01/17 14:49 03/01/17 14:49 03/01/17 14:49 03/01/17 14:49 Vital Signs/O2 Sat, Most Current Temp Pulse Resp BP Pulse Ox 98.7 F 90 18 116/77 90 03/03/17 12:20 03/03/17 12:20 03/03/17 12:20 03/03/17 12:20 03/03/17 12:20 Height: 5'2'' Weight: 195# NPO (# of Hours): > 8 hrs Pain Scale: 0 Pain Scale Used: Numeric (1 - 10) - HEENT Pupil (Motor): Pupils equal, EOMI Mallampati: III - ART OBJECTS REPAIRER LOC: Oriented ART OBJECTS REPAIRER Motor: Normal RUE, Normal LUE, Normal RLE, Normal LLE, Normal Face ART OBJECTS REPAIRER Sensory: Normal: RUE, LUE, RLE, LLE, Face - Cardiac Rhythm: Regular Murmur: None JVD: No Carotid Bruit: No - Pulmonary Breath Sounds: bilateral Clear Respiratory Effort: Symmetrical Anesthesia Assess/Plan ASA Score: 3 Modified Wendy Scale for Level of Consciousness: Cooperative, oriented, and tranquil Anesthetic Plan: MAC Autologous Blood: Yes Monitoring Plan: Standard Monitors Recovery Plan: PACU
--- NOTE | 2017-03-03 14:49 | Internal Med Progress Note ---
<Lida Perez - Last Filed: 03/03/17 16:55> Date of Encounter: 03/03/17 Time of Encounter: 14:49 - Assessment and plan (1) GI bleed Current Visit: Yes Status: Acute Assessment and plan: Patient reports 4 days of large volumes very loose and blood-streaked stool like her prior bout with Escherichia coli. However, on the fourth day she began having melena and coffee ground emesis. Given her history of recurrent GI bleeding presented to the emergency department for evaluation. She has undergone two EGDs demonstrating gastric ulcers on her previous two hospital admissions this year most recently in november 2016 for GI bleeding. Patient does not take NSAIDS or Anticoagulants. Serial exams Protonix 40 mg IVP BID Moring labs to follow H/H: will transfuse if indicated Gastroenterology is on board. per their recommendations: -EGD will be repeated today. Keep NPO. Will continue to monitor per GI recommendations Qualifiers: GI bleed type/associated pathology: unspecified gastrointestinal hemorrhage type Qualified Code(s): K92.2 - Gastrointestinal hemorrhage, unspecified (2) Anemia Current Visit: Yes Status: Chronic Assessment and plan: Patient does have some baseline chronic anemia. Current hemoglobin and hematocrit are not significantly changed. Likely Secondary to GI bleeding. Continue to monitor CBC and transfuse PRBC as needed. Qualifiers: Anemia type: unspecified type Qualified Code(s): D64.9 - Anemia, unspecified (3) Melena Current Visit: Yes Status: Acute Assessment and plan: EGD today for evaluation. See ABOVE. (4) COPD (chronic obstructive pulmonary disease) Current Visit: Yes Status: Chronic Assessment and plan: Continue home medications. Albuterol Symbicort Qualifiers: COPD type: unspecified COPD Qualified Code(s): J44.9 - Chronic obstructive pulmonary disease, unspecified (5) Gastric ulcer Current Visit: Yes Status: Chronic Assessment and plan: Daily PPI. Will follow GI instruction as above. Qualifiers: Gastric ulcer chronicity: acute Gastric ulcer complication status: without hemorrhage or perforation Qualified Code(s): K25.3 - Acute gastric ulcer without hemorrhage or perforation (6) Tobacco abuse Current Visit: Yes Status: Chronic (7) Urination pain Current Visit: Yes Status: Acute Assessment and plan: Urinary analysis pending - Subjective Interval history: Patient was seen and examined. No acute events overnight. Patient has returned from her EGD. She is still on Protonix IV. Patient reports suprapubic tenderness and burning on urination and she is concerned that she may have a UTI. She reports that she had one more small dark black stool when she returned. Patient reports that she is still currently smoking 1 pack per day and that the nicotine patch has been effective so far. Vitals stable. Afebrile. - Constitutional Vitals: Temp Pulse Resp BP Pulse Ox 98.7 F 90 18 116/77 90 03/03/17 12:20 03/03/17 12:20 03/03/17 12:20 03/03/17 12:20 03/03/17 12:20 General appearance: Present: A&O X 3, obese, answers questions appropriately - Head Head exam: Present: atraumatic, normal inspection, normocephalic - Eye Eye exam: Present: EOMI, normal appearance, PERRL, conjuntiva pink - ENT ENT exam: Present: mucous membranes dry, normal external ear exam, normal oropharynx - Neck Neck exam general surgery: Present: full ROM, normal inspection, trachea midline. Absent: lymphadenopathy, nuchal rigidity - Respiratory Respiratory exam: Present: decreased breath sounds, wheezes (Diffuse bilateral) - Cardiovascular Cardiovascular exam: Present: RRR, +S1, +S2. Absent: JVD - GI/Abdominal GI/Abdominal exam: Present: normal bowel sounds, soft, tenderness (Right upper quadrant and suprapubic), no peritoneal signs. Absent: distended, firm, guarding, rebound, rigid - External exam: Present: normal external exam - Extremities Exam Extremities exam: Present: full ROM, normal capillary refill, warm, radial pulses palpable and symetrical. Absent: pedal edema - Back Exam Back exam: Present: normal inspection. Absent: CVA tenderness (L), CVA tenderness (R) - Neurological Exam Neurological exam: Present: CN II-XII intact, oriented X3 - Psychiatric Psychiatric exam: Present: anxious, depressed. Absent: normal affect, normal mood - Skin Skin exam: Present: dry, intact, normal color, warm Internal Medicine: Result - Labs CBC & Chem 7: 03/03/17 05:30 03/02/17 05:24 Labs: Short CBC 03/03/17 Range/Units 05:30 WBC 6.4 (4.3-11.1) K/mcL Hgb 9.4 L (11.5-15.4) g/dL Hct 30.5 L (35.3-44.9) % Plt Count 264 (140-400) K/mcL Neutrophils # 5.4 (1.6-8.9) K/mcL - ABG Interpretation ABG results: PT/INR, D-dimer PT 11.7 Seconds (9.4-12.1) 03/01/17 16:13 - Impressions Chest X-Ray 03/01/17 15:06 IMPRESSION: 1. No acute cardiopulmonary disease. 2. Large hiatal hernia. D/ / 03/01/2017 15:22:29 Lida Palmer MD / fidencio Interpreting Provider: Lida Palmer MD Abdomen/Pelvis CT 03/01/17 15:20 IMPRESSION: 1. No acute abnormality in the abdomen or pelvis. No explanation for the patient's marked stool. 2. Status post cholecystectomy and hysterectomy. D/ / Adrian Bro MD / Adrian Bro MD Interpreting Provider: Adrian Bro MD - VTE Documentation of Mechanical Device: Intermittent pneumatic compression device Consult Discharge Plan - Plan Referrals: Lida Perez DO [Primary Care Provider] - <Wilian Taylor - Last Filed: 03/03/17 17:34> Date of Encounter: 03/03/17 - Constitutional Vitals: Temp Pulse Resp BP Pulse Ox 98.5 F 85 16 116/64 94 03/03/17 15:15 03/03/17 15:15 03/03/17 15:15 03/03/17 15:15 03/03/17 15:15 Internal Medicine: Result - Labs CBC & Chem 7: 03/03/17 05:30 03/02/17 05:24 Labs: Short CBC 03/03/17 Range/Units 05:30 WBC 6.4 (4.3-11.1) K/mcL Hgb 9.4 L (11.5-15.4) g/dL Hct 30.5 L (35.3-44.9) % Plt Count 264 (140-400) K/mcL Neutrophils # 5.4 (1.6-8.9) K/mcL - ABG Interpretation ABG results: PT/INR, D-dimer PT 11.7 Seconds (9.4-12.1) 03/01/17 16:13 - Attending Attestation I examined this patient and my medical decision-making was reviewed with the BACK TENDER INSULATION BOARD/PA/Advanced Practice Nurse/Resident Physician. I agree with the documented findings, disposition and treatment plan as described except to the extent set forth below. GI input, IVPPIs, EGD today. D/W patient.
[2017-03-03] MEDS: Pantoprazole 40 MG VIAL IVP SCH (17:29)
[2017-03-04] MEDS: *HR* Morphine 2 MG/ML SYRINGE IVP PRN ×4 (03:01→20:28)
[2017-03-04] MEDS: Ondansetron 4 MG/2 ML VIAL IVP PRN (03:01)
[2017-03-04] MEDS: Pantoprazole 40 MG VIAL IVP SCH ×2 (05:26→16:49)
[2017-03-04] MEDS: ALPRAZolam 1 MG TABLET PO SCH ×3 (08:43→20:28)
[2017-03-04] MEDS: Nicotine 14 MG PATCH.TD24 TD SCH (08:43)
[2017-03-04] MEDS: Gabapentin 100 MG CAPSULE PO SCH ×3 (08:44→20:28)
[2017-03-04 09:30] LABS: Bilirubin,Urine Negative (Negative); Blood,Urine Moderate (Negative); Clarity,Urine Turbid (Clear); Color,Urine Yellow (Yellow); Glucose,Urine (UA) Normal (Normal); Ketones,Urine Negative (Negative); Leukocyte Esterase,Urine Large (Negative); Nitrite,Urine Positive (Negative); Protein,Urine 30 mg/dL (Neg-Trace); Specific Gravity,Urine 1.023 (1.010-1.025); Urobilinogen,Urine Normal (Normal)
[2017-03-04 09:33] LABS: Bacteria,Urine Many per hpf (None-Few); Hyaline Casts,Urine Few per lpf (None-Few); RBC,Urine 15-30 per hpf (0-3); Squamous Epithelial Cell,Urine Many per lpf (None-Few); WBC,Urine TNTC per hpf (0-3)
[2017-03-04] MEDS: Budesonide/Formoterol 160/4.5 MDI IH SCH ×2 (10:42→20:39)
[2017-03-04 11:05] LABS: Basophils % 0.5 %; Eosinophils # 0.2 K/mcL (0.0-0.6); Eosinophils % 3.4 %; Hematocrit 31.3 % (35.3-44.9); Hemoglobin 9.8 g/dL (11.5-15.4); Immature Granulocytes % 0.2 % (0-4); Lymphocytes # 0.8 K/mcL (0.6-4.6); Lymphocytes % 12.7 %; Mean Corpuscular HGB Conc 31.3 g/dL (31.6-35.5); Mean Corpuscular Hemoglobin 30.6 pg (28.0-33.3); Mean Corpuscular Volume 97.8 fL (83.0-100.0); Mean Platelet Volume 10.5 fL (9.4-12.4); Monocytes # 0.5 K/mcL (0.0-1.3); Neutrophils # 4.9 K/mcL (1.6-8.9); Platelet Count 250 K/mcL (140-400); Red Cell Distribution Width 15.9 % (11.5-14.5); Segmented Neutrophils % 76.2 %
[2017-03-04 11:17] LABS: Blood Urea Nitrogen 7 mg/dL (7-20)
[2017-03-04] MEDS: Acetaminophen 325 MG TABLET PO PRN ×2 (13:36→23:39)
--- NOTE | 2017-03-04 17:17 | Internal Med Progress Note ---
Date of Encounter: 03/04/17 Time of Encounter: 14:00 - Assessment and plan (1) Upper GI bleed Current Visit: Yes Status: Acute Assessment and plan: Patient admitted with an episode of coffee-ground emesis and few episodes of hematochezia per patient. Continue IV Protonix q 12h. No further episodes since admission. Recent EGD showed no bleeding. Patient takes PPI at home is not compliant with Carafate due to GI distress according to her. Hb stable, will contiune monitor and with iv ppis if stabe will discharge her tomorrow. (2) HTN (hypertension) Current Visit: Yes Status: Chronic Qualifiers: Hypertension type: essential hypertension Qualified Code(s): I10 - Essential (primary) hypertension (3) COPD (chronic obstructive pulmonary disease) Current Visit: Yes Status: Chronic Assessment and plan: Not in acute exacerbation. Continues to smoke as an outpatient. Continue when necessary bronchodilators and supplemental oxygen. Qualifiers: COPD type: chronic bronchitis Chronic bronchitis type: unspecified Qualified Code(s): J42 - Unspecified chronic bronchitis (4) Weakness Current Visit: No Status: Acute (5) DVT prophylaxis Current Visit: No Status: Chronic (6) Anemia Current Visit: Yes Status: Chronic Assessment and plan: Baseline hemoglobin noted to be around 11. Anemia likely related to GI bleed. Hb stable today. Continue monitoring. Qualifiers: Anemia type: other cause Other causes of anemia: other cause, not classified Qualified Code(s): D64.89 - Other specified anemias (7) Tobacco abuse Current Visit: Yes Status: Chronic (8) UTI (urinary tract infection) Current Visit: No Status: Acute Assessment and plan: Rocepphin started, urine culture requested. Qualifiers: Urinary tract infection type: acute cystitis Hematuria presence: without hematuria Qualified Code(s): N30.00 - Acute cystitis without hematuria - Subjective Interval history: patient seen and exmained. feels weak, receiving oxygen via nasal cannula, not on home oxygen. denies hemoptysis, no vomiting last night or today. complains of abd pain and dysuria. - Constitutional Vitals: Temp Pulse Resp BP Pulse Ox 98.1 F 73 16 118/75 96 03/04/17 14:43 03/04/17 14:43 03/04/17 14:43 03/04/17 14:43 03/04/17 14:43 General appearance: Present: A&O X 3, obese, answers questions appropriately Exam: breathing with a nasal cannula. - Head Head exam: Present: atraumatic, normocephalic - Eye Eye exam: Present: PERRL, conjuntiva pink, sclera anicteric Pupils: Present: PERRL - Neck Neck exam general surgery: Present: supple, trachea midline. Absent: lymphadenopathy - Respiratory Respiratory exam: Present: CTAB. Absent: accessory muscle use, rales, rhonchi, wheezes - Cardiovascular Cardiovascular exam: Present: RRR, +S1, +S2. Absent: diastolic murmur, gallop, rubs, systolic murmur - GI/Abdominal GI/Abdominal exam: Present: normal bowel sounds, soft, no peritoneal signs. Absent: distended, tenderness - Extremities Exam Extremities exam: Present: warm, radial pulses palpable and symetrical. Absent : calf tenderness, cyanotic, pedal edema - Neurological Exam Neurological exam: Present: CN II-XII intact, oriented X3, no focal deficits. Absent: pronater drift, facial droop, speech deficit - Skin Skin exam: Present: dry, intact Internal Medicine: Result - Labs CBC & Chem 7: 03/04/17 10:36 03/04/17 10:36 Labs: Short CBC 03/04/17 Range/Units 10:36 WBC 6.5 (4.3-11.1) K/mcL Hgb 9.8 L (11.5-15.4) g/dL Hct 31.3 L (35.3-44.9) % Plt Count 250 (140-400) K/mcL Neutrophils # 4.9 (1.6-8.9) K/mcL BMP 03/04/17 10:36 BUN 7 D Urine 03/04/17 Range/Units 09:18 Urine Color Yellow (Yellow) Urine Clarity Turbid A (Clear) Urine pH 6.0 (5.0-8.0) pH Units Ur Specific [place] 1.023 (1.010-1.025) Urine Protein 30 H (Neg-Trace) mg/dL Urine Glucose (UA) Normal (Normal) mg/dL - ABG Interpretation ABG results: PT/INR, D-dimer PT 11.7 Seconds (9.4-12.1) 03/01/17 16:13 - VTE Documentation of Mechanical Device: Intermittent pneumatic compression device Consult Discharge Plan - Plan Referrals: Lida Perez DO [Primary Care Provider] -
[2017-03-04] MEDS ORDERED: CefTRIAXone 1,000 MG VIAL IM ONE (18:56)
[2017-03-04] MEDS: *HR* OxyCODONE/APAP 5/325 TABLET PO PRN (21:02)
[2017-03-05 05:16] LABS: Basophils % 0.6 %; Eosinophils # 0.2 K/mcL (0.0-0.6); Eosinophils % 3.3 %; Hematocrit 29.3 % (35.3-44.9); Hemoglobin 9.1 g/dL (11.5-15.4); Immature Granulocytes % 0.2 % (0-4); Lymphocytes % 18.4 %; Mean Corpuscular HGB Conc 31.1 g/dL (31.6-35.5); Mean Corpuscular Hemoglobin 30.4 pg (28.0-33.3); Mean Platelet Volume 11.1 fL (9.4-12.4); Monocytes # 0.4 K/mcL (0.0-1.3); Monocytes % 8.2 %; Neutrophils # 3.6 K/mcL (1.6-8.9); Platelet Count 238 K/mcL (140-400); Red Blood Count 2.99 M/mcL (3.82-4.97); Red Cell Distribution Width 15.9 % (11.5-14.5); Segmented Neutrophils % 69.3 %
[2017-03-05] MEDS: Pantoprazole 40 MG VIAL IVP SCH (05:22)
[2017-03-05 05:31] LABS: BUN/Creatinine Ratio 16 (6-26); Blood Urea Nitrogen 11 mg/dL (7-20); Calcium 8.8 mg/dL (8.6-10.8); Carbon Dioxide 35 mEq/L (19-29); Chloride 103 mEq/L (98-109); Glucose 98 mg/dL (70-99); Osmolality,Calculated 291 (280-300); Potassium 3.8 mEq/L (3.5-4.5); Sodium 141 mEq/L (136-145); eGFR For African Americans > 60 (> 60); eGFR For Non-African Americans > 60 (> 60)
[2017-03-05] MEDS: *HR* OxyCODONE/APAP 5/325 TABLET PO PRN ×2 (05:53→10:21)
[2017-03-05] MEDS: Budesonide/Formoterol 160/4.5 MDI IH SCH (08:03)
--- NOTE | 2017-03-05 08:23 | Discharge Summary ---
<Lida Perez - Last Filed: 03/05/17 13:17> Date of Encounter: 03/05/17 Time of Encounter: 08:20 - Discharge Diagnosis (1) GI bleed Priority: Primary Status: Resolved Qualifiers: GI bleed type/associated pathology: unspecified gastrointestinal hemorrhage type Qualified Code(s): K92.2 - Gastrointestinal hemorrhage, unspecified (2) Anemia Priority: Secondary Status: Chronic Qualifiers: Anemia type: unspecified type Qualified Code(s): D64.9 - Anemia, unspecified (3) Melena Priority: Primary Status: Resolved (4) COPD (chronic obstructive pulmonary disease) Priority: Secondary Status: Chronic Qualifiers: COPD type: unspecified COPD Qualified Code(s): J44.9 - Chronic obstructive pulmonary disease, unspecified (5) Gastric ulcer Priority: Secondary Status: Chronic Qualifiers: Gastric ulcer chronicity: acute Gastric ulcer complication status: without hemorrhage or perforation Qualified Code(s): K25.3 - Acute gastric ulcer without hemorrhage or perforation (6) Tobacco abuse Priority: Secondary Status: Chronic (7) Urination pain Priority: Primary Status: Acute - Discharge Medications Prescriptions: Cefdinir [Omnicef] 300 mg PO BID #12 capsule Home Medications: Albuterol Sulfate [Proair Hfa] 2 puff IH Q4H PRN 09/01/16 [History] Budesonide/Formoterol 160/4.5 [Symbicort 160/4.5] 2 puff IH BID 09/01/16 [ History] Gabapentin [Neurontin] 100 mg PO TID 09/01/16 [History] Promethazine [Phenergan] 25 mg PO HS PRN 09/01/16 [History] Acetaminophen [Tylenol] 650 mg PO Q6HR PRN #0 tablet 12/12/16 [Rx] Nicotine Patch [Nicoderm] 14 mg TD DAILY #30 patch.td24 12/12/16 [Rx] ALPRAZolam [Xanax 1 MG Tablet] 1 mg PO TID PRN 03/01/17 [History] Doxepin HCl [Doxepin HCl] 100 mg PO HS 03/02/17 [History] Duloxetine HCl [Cymbalta] 120 mg PO DAILY 03/02/17 [History] Ferrous Sulfate [Iron] 325 mg PO BID 03/02/17 [History] Pantoprazole Sodium [Protonix] 40 mg PO BID 03/02/17 [History] risperiDONE [Risperidone] 1 mg PO DAILY 03/02/17 [History] Cefdinir [Omnicef] 300 mg PO BID #12 capsule 03/05/17 [Rx] Allergies/Adverse Reactions: Allergies Zolpidem [From Ambien] Allergy (Verified 01/27/17 10:51) Agitated eszopiclone [From Lunesta] Adverse Reaction (Verified 01/27/17 10:51) Gastrointestinal Upset Date of admission: 03/01/17 19:26 Primary care physician: Lida Perez DO Discharging clinician: Wilian Taylor Anticipated date of discharge: 03/05/17 - Patient Status Disposition: Home, Self-Care Condition: Good Functional capacity at discharge: independent ambulation - Discharge Instructions Instructions: Urinary Tract Infection in Women (DC), Anemia (GEN) Follow Up With: Lida Perez DO [Primary Care Provider] - Tommy Colon MD [Partnered Physician] - (Chronic anemia please evaluate) Marci Mendoza MD [Partnered Physician] - Additional Instructions: Please continue to take your Protonix 40 mg a day twice a day as recommended by the materials technician. - Diet and Activity Activity: increase activity as tolerated Diet: advance to your usual diet Interval History: Mrs. Camp is a 61 year old female with a history of recurrent GI bleeding who presented to [facility] on 03/01/17 for symptoms consistent with prior GI bleeding with abdominal pain, coffee-ground emesis and melena. Patient does have a history of gastric ulcers followed by gastroenterology with 2 upper endoscopies this year demonstrating nonbleeding ulcers. Patient has baseline anemia and was previously followed by hematology given iron however patient states that she has not seen them in years. Outpatient medications are taken infrequently for prevention. On admission, patient also complained of suprapubic pain and urinary frequency and urgency with pain on urination. Patient was evaluated by upper endoscopy again on 03/03/17 with finding of Z line irregularity that was biopsied and a small hiatal hernia otherwise normal. Recommendation by GI is to continue outpatient daily PPI encourage compliance. Preliminary urine culture demonstrated gram-negative rods and patient was given IV Rocephin. She will be discharged with Omnicef 300 twice a day for the following 6 days of therapy. Patient's hemoglobin and hematocrit remained stable during the course of her stay. Patient made significant improvement after antibiotic administration and fluids. No further GI bleeding was identified. Due to her chronic anemia we will refer to hematology oncology for further investigation and management. Additionally, patient has a history of COPD and pleural effusion requiring drainage will have patient follow-up with pulmonary as well. Patient is stable and is cleared to discharge from a medical standpoint. Hospital course: Ms. Camp is a 61 year old female - Time Spent with Patient Total time spent providing and/or coordinating discharge services: - Constitutional Vitals: Temp Pulse Resp BP Pulse Ox 98.1 F 90 16 122/76 98 03/05/17 07:35 03/05/17 07:35 03/05/17 08:04 03/05/17 07:35 03/05/17 08:04 General appearance: Present: A&O X 3, obese, answers questions appropriately Exam: General: Cooperative, pleasant, no acute distress, alert and oriented 3, answers questions appropriately, obese HEENT: Normocephalic, atraumatic, neck supple, trachea midline, Conjunctiva pink , sclera anicteric, EOMI, PERRL, oral mucosa moist, no orophargeal erythema or exudates, patient does have right lower mandibular molar fracture with erythema around the gumline patient states this tooth will be extracted next week Respiratory: No accessory muscle usage, diffuse wheezing bilaterally with decreased sounds at the bases, no/rhonchi/rales appreciated Cardiovascular: Regular rate and rhythm, S1 and S2 present, no murmurs/rubs/ gallops/clicks appreciated GI/abdominal: Nondistended, suprapubic tenderness soft, normal bowel sounds, no peritoneal signs Extremities: No calf tenderness, noncyanotic, no pedal edema appreciated, warm, lower extremity pulses palpable and symmetrical Neurological: Alert and oriented 3, no facial droop, no focal deficits Skin: Dry, intact, normal color - VTE Documentation of Mechanical Device: Intermittent pneumatic compression device <Wilian Taylor - Last Filed: 03/05/17 15:41> Date of Encounter: 03/05/17 - Discharge Diagnosis (1) Upper GI bleed Status: Acute (2) HTN (hypertension) Status: Chronic Qualifiers: Hypertension type: essential hypertension Qualified Code(s): I10 - Essential (primary) hypertension (3) COPD (chronic obstructive pulmonary disease) Status: Chronic Qualifiers: COPD type: chronic bronchitis Chronic bronchitis type: unspecified Qualified Code(s): J42 - Unspecified chronic bronchitis (4) Weakness Status: Acute (5) DVT prophylaxis Status: Chronic (6) Anemia Status: Chronic Qualifiers: Anemia type: other cause Other causes of anemia: other cause, not classified Qualified Code(s): D64.89 - Other specified anemias (7) Tobacco abuse Status: Chronic (8) UTI (urinary tract infection) Status: Acute Qualifiers: Urinary tract infection type: acute cystitis Hematuria presence: without hematuria Qualified Code(s): N30.00 - Acute cystitis without hematuria Date of admission: 03/01/17 19:26 Primary care physician: Lida Perez DO Hospital course: Ms. Camp is a 61 year old female - Time Spent with Patient Total time spent providing and/or coordinating discharge services: - Constitutional Vitals: Temp Pulse Resp BP Pulse Ox 98.0 F 99 17 115/71 95 03/05/17 10:58 03/05/17 10:58 03/05/17 10:58 03/05/17 10:58 03/05/17 10:58 - Attending Attestation I examined this patient and my medical decision-making was reviewed with the FIELD HOCKEY COACH/PA/Advanced Practice Nurse/Resident Physician. I agree with the documented findings, disposition and treatment plan as described except to the extent set forth below. UTI, omnicef to complete treatment. Follow up with hematology, pulmonology, GI and PCP.
[2017-03-05] MEDS: Gabapentin 100 MG CAPSULE PO SCH (10:21)
[2017-03-05] MEDS: Nicotine 14 MG PATCH.TD24 TD SCH (10:21)
[2017-03-05] MEDS: ALPRAZolam 1 MG TABLET PO SCH (10:23)
[2017-03-05 11:00] VITALS: BP 115/71
== END 2017-03-05 14:45 | disposition home or self-care (01) | DRG 378 ==
LOC: 3ANU 14:43 → EMEROO 14:43 → 3ANU 18:52 → SUATTDRO 19:26
PROVIDERS: ADMIT Hospitalist; ATTEND Internal Medicine
PROC: ENDOEBX (2017-03-03 12:30)

== ENCOUNTER 2019-05-08 21:22 | Observation (INO) ==
--- NOTE | 2019-05-08 21:56 | Emergency Department Note ---
Disposition Clinical Impression: Altered mental status, UTI (urinary tract infection) Disposition: Admitted As Inpatient Condition: Fair Referrals: NONE,PCP [Primary Care Provider] - Forms: ED Satisfaction Letter Time of Disposition: 00:59 Altered Mental Status HPI - General Chief Complaint: ED Altered Mental Status Stated Complaint: Confusion Time Seen by Provider: 05/08/19 21:34 Nursing Notes Reviewed: Yes Vital Signs Reviewed: Yes - History of Present Illness HPI Narrative: Patient is a 63 female who presents by EMS for concerns of fatigue and altered mental status. Per EMS, the patient's son came home and found the patient on the floor, fatigue and appeared confused with answering questions. The patient currently complains of right-sided shoulder pain and knee pain which she states is chronic, she denies any other symptoms today. She denies any falls, recent traumas or being on any blood in medications. She is alert and oriented to person and place only. The remainder of the history is largely unable to be a obtained to send her to the patient's current mental status. - Related Data Home Medications Medication Instructions Recorded Confirmed Cyclobenzaprine HCl 5 mg PO TID PRN 10/07/18 10/07/18 Doxepin HCl 200 mg PO HS 10/07/18 10/07/18 Duloxetine HCl [Cymbalta] 60 mg PO DAILY 10/07/18 10/07/18 Ferrous Sulfate 325 mg PO DAILY 10/07/18 10/07/18 Pantoprazole Sodium [Protonix] 40 mg PO BID 10/07/18 10/07/18 Promethazine [Phenergan] 25 mg PO HS PRN 10/07/18 10/07/18 raNITIdine HCl [Zantac] 150 mg PO BID 10/07/18 10/07/18 risperiDONE [Risperidone] 1 mg PO DAILY 10/07/18 10/07/18 Previous Rx's Medication Instructions Recorded Budesonide/Formoterol 80/4.5 2 puff IH BIDR inhaler 10/08/18 [Symbicort 80/4.5] Ciprofloxacin [Cipro] 500 mg PO BID #12 tablet 10/08/18 Nicotine Patch [Nicoderm] 21 mg TD DAILY patch.td24 10/08/18 Allergies Allergy/AdvReac Type Severity Reaction Status Date / Time eszopiclone [From Lunesta] AdvReac See Verified 05/08/19 21:52 Comments Zolpidem [From Ambien] AdvReac See Verified 05/08/19 21:52 Comments Limitations: ROS unobtainable due to patients medical condition Past Medical History - Past Medical History Attestation: Yes The following information was validated with the patient. 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 - Social History Smoking Status: Current every day smoker Smokeless Tobacco Status: No Alcohol use: Reports: none Drug use: Reports: none Physical Exam PHYSICAL EXAM: Constitutional: Somnolent, Stated Age HENT: NC/AT, Mucous membranes dry Eyes: No scleral icterus, EOMI Neck: No nuchal rigidity, Supple, Trachea midline Cardiac: Regular rate and rhythm, S1 and S2 normal, no S3, S4, no murmurs gallops or rubs Thorax & Lungs: Clear to auscultation bilaterally, no wheezes, crackles or rhonchi, No chest tenderness Abdomen: Soft, non-tender, non-distended, no rebound or guarding Skin: Warm, dry, pink, No mottling Extremities: No deformities Musculoskeletal: Normal tone Neurologic: CN II-XII intact, negative Romberg, sensory and motor strength fully intact in all extremities, no aphasia or dysarthria Psychiatric: Alert and oriented to person and place only, not time Course Vital Signs Temperature 98.9 F 05/08/19 21:34 Pulse Rate 91 05/08/19 21:34 Respiratory Rate 18 05/08/19 21:34 Blood Pressure 117/44 05/08/19 21:34 O2 Sat by Pulse Oximetry 93 05/08/19 21:34 Temperature 98.9 F 05/08/19 21:44 Pulse Rate 87 05/08/19 22:33 Respiratory Rate 20 05/08/19 22:33 Blood Pressure 132/74 05/08/19 22:33 O2 Sat by Pulse Oximetry 91 05/08/19 22:33 Oxygen Delivery Oxygen Delivery Room Air Altered Mental Status - MDM Narrative Medical decision making narrative: Patient is a 63-year-old female who presents today with concerns of altered mental status. Physical exam, the patient was alert and oriented 2. She was overall nontoxic appearing. No signs of trauma or falls on exam. Abdomen was soft and benign, lungs sounds clear and equal bilaterally. She is afebrile, hemodynamically stable. Unremarkable as performed today, blood work was reassuring, no leukocytosis, urinalysis was consistent with a UTI, and addition urine drug screen was po sitive for the presence of cocaine. CT of the head was unremarkable for acute findings. The remainder of the workup was overall benign. She was treated in the emergency department with normal saline IV fluids and Rocephin. Based on her overall clinical appearance as well as workup as performed today, I do feel that she warrants hospitalization. - Medical Records Medical records reviewed: Yes I reviewed the patient's medical records. - Lab Data Lab results reviewed: Yes I reviewed the patient's lab results. Result diagrams: 05/08/19 22:29 05/08/19 22:29 Lab Results 05/08/19 05/08/19 05/08/19 Range/Units 22:29 22:29 22:29 WBC 8.8 (4.3-11.1) K/mcL RBC 3.68 L (3.82-4.97) M/mcL Hgb 9.4 L (11.5-15.4) g/dL Hct 31.8 L (35.3-44.9) % MCV 86.4 (83.0-100.0) fL MCH 25.5 L (28.0-33.3) pg MCHC 29.6 L (31.6-35.5) g/dL RDW 18.2 H (11.5-14.5) % Plt Count 381 (140-400) K/mcL MPV 10.3 (9.4-12.4) fL Immature Gran % 0.3 (0-4) % Seg Neutrophils % 88.4 % Lymphocytes % 5.8 % Monocytes % 4.4 % Eosinophils % 0.8 % Basophils % 0.3 % Neutrophils # 7.8 (1.6-8.9) K/mcL Lymphocytes # 0.5 L (0.6-4.6) K/mcL Monocytes # 0.4 (0.0-1.3) K/mcL Eosinophils # 0.1 (0.0-0.6) K/mcL Basophils # 0.0 (0.0-0.2) K/mcL PT (9.4-12.1) Seconds INR APTT (26.0-36.0) Seconds Sodium 141 (136-145) mEq/L Potassium 3.6 (3.5-5.1) mEq/L Chloride 108 H (98-107) mEq/L Carbon Dioxide 24 (23-29) mEq/L BUN 6 L (8-23) mg/dL Creatinine 0.93 (0.60-1.20) mg/dL Est GFR ( Amer) > 60 (> 60) Est GFR (Non-Af Amer) > 60 (> 60) BUN/Creatinine Ratio 6 (6-26) Glucose 111 H (70-105) mg/dL Calculated Osmolality 290 (280-300) Calcium 8.6 (8.6-10.3) mg/dL Total Bilirubin 0.2 L (0.3-1.0) mg/dL Direct Bilirubin 0.0 (0.0-0.2) mg/dL Indirect Bilirubin 0.2 (0.0-1.2) mg/dL AST 8 L (13-39) Units/L ALT 8 (7-52) Units/L Alkaline Phosphatase 99 (34-104) Units/L Ammonia 45 (16-53) mcmol/L Creatine Kinase 29 L (30-223) Units/L Troponin I < 0.03 (< 0.04) ng/mL Serum Total Protein 6.1 L (6.4-8.9) g/dL Albumin 3.5 (3.5-5.7) g/dL Globulin 2.6 (2.4-3.5) g/dL Albumin/Globulin Ratio 1.3 (1.1-2.2) TSH 0.753 (0.340-5.600) mcIU/mL Urine Color (Yellow) Urine Clarity (Clear) Urine pH (5.0-8.0) pH Units Ur Specific [place] (1.010-1.025) Urine Protein (Neg-Trace) mg/dL Urine Glucose (UA) (Normal) mg/dL Urine Ketones (Negative) mg/dL Urine Blood (Negative) Urine Nitrite (Negative) Urine Bilirubin (Negative) Urine Urobilinogen (Normal) mg/dL Ur Leukocyte Esterase (Negative) Urine Microscopic RBC (0-3) per hpf Urine Microscopic WBC (0-3) per hpf Ur Squamous Epith Cells (None-Few) per lpf Urine Bacteria (None-Few) per hpf Hyaline Casts (None-Few) per lpf Ur Culture Indicated? (NO) Urine Opiates Screen (Qpqqmx=223) ng/mL Ur Buprenorphine Scrn (Cutoff=5) ng/mL Ur Barbiturates Screen (Kmhmtt=832) ng/mL Ur Phencyclidine Scrn (Cutoff=25) ng/mL Ur Amphetamines Screen (Mcdtlg=0722) ng/mL U Benzodiazepines Scrn (Vexzqo=960) ng/mL Urine Cocaine Screen (Cutoff= 300) ng/mL U Marijuana (THC) Screen (Cutoff = 50) ng/mL Ur Drug Screen Interp Ethyl Alcohol < 10 (Less than 10) mg/dL Specimen Rejected 05/08/19 05/08/19 05/08/19 Range/Units 22:29 23:20 23:30 WBC (4.3-11.1) K/mcL RBC (3.82-4.97) M/mcL Hgb (11.5-15.4) g/dL Hct (35.3-44.9) % MCV (83.0-100.0) fL MCH (28.0-33.3) pg MCHC (31.6-35.5) g/dL RDW (11.5-14.5) % Plt Count (140-400) K/mcL MPV (9.4-12.4) fL Immature Gran % (0-4) % Seg Neutrophils % % Lymphocytes % % Monocytes % % Eosinophils % % Basophils % % Neutrophils # (1.6-8.9) K/mcL Lymphocytes # (0.6-4.6) K/mcL Monocytes # (0.0-1.3) K/mcL Eosinophils # (0.0-0.6) K/mcL Basophils # (0.0-0.2) K/mcL PT 12.1 (9.4-12.1) Seconds INR 1.1 APTT 29.6 (26.0-36.0) Seconds Sodium (136-145) mEq/L Potassium (3.5-5.1) mEq/L Chloride (98-107) mEq/L Carbon Dioxide (23-29) mEq/L BUN (8-23) mg/dL Creatinine (0.60-1.20) mg/dL Est GFR ( Amer) (> 60) Est GFR (Non-Af Amer) (> 60) BUN/Creatinine Ratio (6-26) Glucose (70-105) mg/dL Calculated Osmolality (280-300) Calcium (8.6-10.3) mg/dL Total Bilirubin (0.3-1.0) mg/dL Direct Bilirubin (0.0-0.2) mg/dL Indirect Bilirubin (0.0-1.2) mg/dL AST (13-39) Units/L ALT (7-52) Units/L Alkaline Phosphatase (34-104) Units/L Ammonia (16-53) mcmol/L Creatine Kinase (30-223) Units/L Troponin I (< 0.04) ng/mL Serum Total Protein (6.4-8.9) g/dL Albumin (3.5-5.7) g/dL Globulin (2.4-3.5) g/dL Albumin/Globulin Ratio (1.1-2.2) TSH (0.340-5.600) mcIU/mL Urine Color Yellow (Yellow) Urine Clarity Cloudy A (Clear) Urine pH 6.5 (5.0-8.0) pH Units Ur Specific [place] 1.010 (1.010-1.025) Urine Protein 30 H (Neg-Trace) mg/dL Urine Glucose (UA) Normal (Normal) mg/dL Urine Ketones Negative (Negative) mg/dL Urine Blood Trace H (Negative) Urine Nitrite Positive A (Negative) Urine Bilirubin Negative (Negative) Urine Urobilinogen Normal (Normal) mg/dL Ur Leukocyte Esterase Large H (Negative) Urine Microscopic RBC 5-15 H (0-3) per hpf Urine Microscopic WBC TNTC H (0-3) per hpf Ur Squamous Epith Cells Many H (None-Few) per lpf Urine Bacteria Moderate H (None-Few) per hpf Hyaline Casts None Seen (None-Few) per lpf Ur Culture Indicated? YES A (NO) Urine Opiates Screen (Ewjvse=243) ng/mL Ur Buprenorphine Scrn (Cutoff=5) ng/mL Ur Barbiturates Screen (Zdztrm=102) ng/mL Ur Phencyclidine Scrn (Cutoff=25) ng/mL Ur Amphetamines Screen (Dzpfyl=2694) ng/mL U Benzodiazepines Scrn (Nfymxn=241) ng/mL Urine Cocaine Screen (Cutoff= 300) ng/mL U Marijuana (THC) Screen (Cutoff = 50) ng/mL Ur Drug Screen Interp Ethyl Alcohol (Less than 10) mg/dL Specimen Rejected Clotted 05/08/19 Range/Units 23:30 WBC (4.3-11.1) K/mcL RBC (3.82-4.97) M/mcL Hgb (11.5-15.4) g/dL Hct (35.3-44.9) % MCV (83.0-100.0) fL MCH (28.0-33.3) pg MCHC (31.6-35.5) g/dL RDW (11.5-14.5) % Plt Count (140-400) K/mcL MPV (9.4-12.4) fL Immature Gran % (0-4) % Seg Neutrophils % % Lymphocytes % % Monocytes % % Eosinophils % % Basophils % % Neutrophils # (1.6-8.9) K/mcL Lymphocytes # (0.6-4.6) K/mcL Monocytes # (0.0-1.3) K/mcL Eosinophils # (0.0-0.6) K/mcL Basophils # (0.0-0.2) K/mcL PT (9.4-12.1) Seconds INR APTT (26.0-36.0) Seconds Sodium (136-145) mEq/L Potassium (3.5-5.1) mEq/L Chloride (98-107) mEq/L Carbon Dioxide (23-29) mEq/L BUN (8-23) mg/dL Creatinine (0.60-1.20) mg/dL Est GFR ( Amer) (> 60) Est GFR (Non-Af Amer) (> 60) BUN/Creatinine Ratio (6-26) Glucose (70-105) mg/dL Calculated Osmolality (280-300) Calcium (8.6-10.3) mg/dL Total Bilirubin (0.3-1.0) mg/dL Direct Bilirubin (0.0-0.2) mg/dL Indirect Bilirubin (0.0-1.2) mg/dL AST (13-39) Units/L ALT (7-52) Units/L Alkaline Phosphatase (34-104) Units/L Ammonia (16-53) mcmol/L Creatine Kinase (30-223) Units/L Troponin I (< 0.04) ng/mL Serum Total Protein (6.4-8.9) g/dL Albumin (3.5-5.7) g/dL Globulin (2.4-3.5) g/dL Albumin/Globulin Ratio (1.1-2.2) TSH (0.340-5.600) mcIU/mL Urine Color (Yellow) Urine Clarity (Clear) Urine pH (5.0-8.0) pH Units Ur Specific [place] (1.010-1.025) Urine Protein (Neg-Trace) mg/dL Urine Glucose (UA) (Normal) mg/dL Urine Ketones (Negative) mg/dL Urine Blood (Negative) Urine Nitrite (Negative) Urine Bilirubin (Negative) Urine Urobilinogen (Normal) mg/dL Ur Leukocyte Esterase (Negative) Urine Microscopic RBC (0-3) per hpf Urine Microscopic WBC (0-3) per hpf Ur Squamous Epith Cells (None-Few) per lpf Urine Bacteria (None-Few) per hpf Hyaline Casts (None-Few) per lpf Ur Culture Indicated? (NO) Urine Opiates Screen Negative (Xfbwfs=900) ng/mL Ur Buprenorphine Scrn Negative (Cutoff=5) ng/mL Ur Barbiturates Screen Negative (Moigzd=329) ng/mL Ur Phencyclidine Scrn Negative (Cutoff=25) ng/mL Ur Amphetamines Screen Negative (Azmvvo=1183) ng/mL U Benzodiazepines Scrn Negative (Ewyikf=653) ng/mL Urine Cocaine Screen Positive H (Cutoff= 300) ng/mL U Marijuana (THC) Screen Negative (Cutoff = 50) ng/mL Ur Drug Screen Interp See Below Ethyl Alcohol (Less than 10) mg/dL Specimen Rejected - Radiology Data Radiology results reviewed: Yes I reviewed the patient's radiology results. TPA Checklist - LKW: 3-4.5 hrs Add. Warnings/Precautions Patient/family understanding: The patient/family members have been counseled and understood the risk, benefit, and alternatives of treatment.
[2019-05-08 22:49] LABS: Basophils % 0.3 %; Eosinophils # 0.1 K/mcL (0.0-0.6); Eosinophils % 0.8 %; Hematocrit 31.8 % (35.3-44.9); Hemoglobin 9.4 g/dL (11.5-15.4); Immature Granulocytes % 0.3 % (0-4); Lymphocytes # 0.5 K/mcL (0.6-4.6); Lymphocytes % 5.8 %; Mean Corpuscular HGB Conc 29.6 g/dL (31.6-35.5); Mean Corpuscular Hemoglobin 25.5 pg (28.0-33.3); Mean Corpuscular Volume 86.4 fL (83.0-100.0); Mean Platelet Volume 10.3 fL (9.4-12.4); Monocytes # 0.4 K/mcL (0.0-1.3); Monocytes % 4.4 %; Neutrophils # 7.8 K/mcL (1.6-8.9); Platelet Count 381 K/mcL (140-400); Red Blood Count 3.68 M/mcL (3.82-4.97); Red Cell Distribution Width 18.2 % (11.5-14.5); Segmented Neutrophils % 88.4 %; White Blood Count 8.8 K/mcL (4.3-11.1)
[2019-05-08 23:14] LABS: Alanine Aminotransferase 8 Units/L (7-52); Albumin 3.5 g/dL (3.5-5.7); Albumin/Globulin Ratio 1.3 (1.1-2.2); Alkaline Phosphatase 99 Units/L (34-104); Aspartate Amino Transferase 8 Units/L (13-39); BUN/Creatinine Ratio 6 (6-26); Bilirubin,Indirect 0.2 mg/dL (0.0-1.2); Bilirubin,Total 0.2 mg/dL (0.3-1.0); Blood Urea Nitrogen 6 mg/dL (8-23); Calcium 8.6 mg/dL (8.6-10.3); Carbon Dioxide 24 mEq/L (23-29); Chloride 108 mEq/L (98-107); Creatine Kinase 29 Units/L (30-223); Ethanol < 10 mg/dL (Less than 10); Globulin 2.6 g/dL (2.4-3.5); Glucose 111 mg/dL (70-105); Osmolality,Calculated 290 (280-300); Potassium 3.6 mEq/L (3.5-5.1); Sodium 141 mEq/L (136-145); Total Protein 6.1 g/dL (6.4-8.9); eGFR For African Americans > 60 (> 60); eGFR For Non-African Americans > 60 (> 60)
[2019-05-08 23:15] LABS: Troponin I < 0.03 ng/mL (< 0.04)
[2019-05-08 23:29] LABS: Thyroid Stimulating Hormone 0.753 mcIU/mL (0.340-5.600)
[2019-05-08 23:39] LABS: Bilirubin,Urine Negative (Negative); Blood,Urine Trace (Negative); Clarity,Urine Cloudy (Clear); Color,Urine Yellow (Yellow); Glucose,Urine (UA) Normal (Normal); Ketones,Urine Negative (Negative); Leukocyte Esterase,Urine Large (Negative); Nitrite,Urine Positive (Negative); PH,Urine 6.5 pH Units (5.0-8.0); Protein,Urine 30 mg/dL (Neg-Trace); Urobilinogen,Urine Normal (Normal)
[2019-05-08 23:40] LABS: Bacteria,Urine Moderate per hpf (None-Few); Hyaline Casts,Urine None Seen per lpf (None-Few); Squamous Epithelial Cell,Urine Many per lpf (None-Few); WBC,Urine TNTC per hpf (0-3)
[2019-05-08 23:53] LABS: Amphetamine Screen,Urine Negative ng/mL (Cutoff=1000); Barbiturate Screen,Urine Negative ng/mL (Cutoff=200); Benzodiazepines Screen,Urine Negative ng/mL (Cutoff=200); Cannabinoid Screen,Urine Negative ng/mL (Cutoff = 50); Cocaine Screen,Urine Positive ng/mL (Cutoff= 300); Opiate Screen,Urine Negative ng/mL (Cutoff=300); Phencyclidine Screen,Urine Negative ng/mL (Cutoff=25)
[2019-05-08 23:55] LABS: INR 1.1; Prothrombin Time 12.1 Seconds (9.4-12.1)
[2019-05-08 23:58] LABS: Activated Partial Thrombo Time 29.6 Seconds (26.0-36.0)
[2019-05-09] MEDS ORDERED: cefTRIAXone 1,000 MG in 0.9 % Sodium Chloride Mini Bag 100 ML IVPB ONE (00:26)
[2019-05-09] MEDS ORDERED: 0.9 % Sodium Chloride 1,000 ML IV ONE (01:00)
[2019-05-09] MEDS ORDERED: Naloxone 0.4 MG/ML INJ IVP PRN (05:29)
--- NOTE | 2019-05-09 05:43 | Internal Med History&Physical ---
Date of Encounter: 05/09/19 Time of Encounter: 03:00 Internal Medicine - H&P: HPI Chief complaint: AMS Admitted From: Home Plans for Post Hospital Care: Home History of present illness: Ms. Camp is a 63 year old female with past medical history significant for COPD, GERD, chronic back pain, anxiety, bipolar, PTSD, and tobacco abuse who presented by EMS due to patient's son finding her at home confused. Upon arrival to ER patient was alert and oriented to person and place only. ER completed head CT which showed no acute intracranial abnormality. ER also obtained chest x-ray which showed no acute cardiopulmonary findings. ER also obtained urine toxicology screen which was positive for cocaine. ER obtained EK G which showed sinus rhythm. ER obtained UA which revealed a possible UTI and was given fluids and started on antibiotics. Upon my assessment patient states she is feeling better and remembers feeling what she describes as "out of it" earlier last night and her son calling EMS. States her son was concerned she may have taken her medications incorrectly but she does not think she did. Does report she has had UTIs in the past that have made her feel confused and she has been having increased urinary frequency lately. Reports frequent mechanical falls at home. Reports her last fall was a few days ago and has had right shoulder pain getting progressively worse since. Denies ever feeling like she is going to pass out or recently striking her head or losing consciousness. She attributes her frequent mechanical falls to being "clumsy". Currently denies any headache, numbness, tingling, chest pain, shortness of breath, abdominal pain, or bowel changes. Adamantly denies any cocaine use, however does report being around others who were smoking cocaine 2 days ago. Also reports interm ittently smoking marijuana. Reports smoking cigarettes daily and denies any alcohol use. Reports living with her son and feeling safe there. Past Med Surg Social Fam HX - Past Medical History Medical history: COPD, GERD, GI bleed Additional medical history: upper gi bleed/rectal bleeding/melena/gastric ulcer. obesity. chronic pain syndrome. iron deficiency anemia Psychiatric history: anxiety, bipolar, depression, PTSD, prior suicide attempt, previous psychiatric hospitalization - Past Surgical History Surgical History: cholecystectomy, hysterectomy, other Additional surgical history: Knee repair. lung surgery - Social History Smoking Status: Current every day smoker Smokeless Tobacco Status: No Alcohol use: none Drug use: marijuana Current living situation: With Family - Family History Mother Adopted: No Family Member Ethnicity: Non- Living Status: Hx Family Cardiac Disorders: Yes Hx Family Respiratory Disorders: Yes (COPD) Hx Family Cancer: Yes (Cervical) Hx Family GI Disorders: No Hx Family Endocrine Disorder: Yes (DM) Hx Family Neuromuscular Disorders: No Hx Family Neurologic Disorders: No Hx Family HEENT Disorders: No Hx Family Autoimmune Disorders: No Father Living Status: Hx Family Cardiac Disorders: Yes Hx Family Respiratory Disorders: No Hx Family Cancer: Yes (Throat) Hx Family Endocrine Disorder: Yes (DM) Internal Medicine - H&P: Meds Cyclobenzaprine HCl 5 mg PO TID PRN 10/07/18 [History] Doxepin HCl 200 mg PO HS 10/07/18 [History] Duloxetine HCl [Cymbalta] 60 mg PO DAILY 10/07/18 [History] Ferrous Sulfate 325 mg PO DAILY 10/07/18 [History] Pantoprazole Sodium [Protonix] 40 mg PO BID 10/07/18 [History] Promethazine [Phenergan] 25 mg PO HS PRN 10/07/18 [History] raNITIdine HCl [Zantac] 150 mg PO BID 10/07/18 [History] risperiDONE [Risperidone] 1 mg PO DAILY 10/07/18 [History] Budesonide/Formoterol 80/4.5 [Symbicort 80/4.5] 2 puff IH BIDR inhaler 10/08/18 [Rx] Ciprofloxacin [Cipro] 500 mg PO BID #12 tablet 10/08/18 [Rx] Nicotine Patch [Nicoderm] 21 mg TD DAILY patch.td24 10/08/18 [Rx] Allergy/AdvReac Type Severity Reaction Status Date / Time eszopiclone [From Lunesta] AdvReac See Verified 05/08/19 21:52 Comments Zolpidem [From Ambien] AdvReac See Verified 05/08/19 21:52 Comments All Systems PM: A 10-system review of systems was performed and is negative for pertinent findings except as documented above in the HPI. - Constitutional Vitals: Temp Pulse Resp BP Pulse Ox 98.7 F 87 16 148/76 90 05/09/19 01:55 05/09/19 01:55 05/09/19 01:55 05/09/19 01:55 05/09/19 01:55 Exam: General: Alert and oriented to person place and time currently. Skin:Normal color, no rash, no lesions. HEENT:Pupils equal, round and reactive. Cardiovascular:Normal S1 & S2, no rubs, murmurs or gallops. No JVD. Pulse regular. Lungs:Breath sounds decreased, no wheezes or crackles. Abdomen:Soft, non-tender, no rigidity. Extremities:No deformity, no edema, no joint swelling or clubbing. Tenderness noted to right shoulder. Neurological:Normal cognition and motor skills. Pulses:Carotid and radial pulses normal +2. Rest of the physical exam is non 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. Internal Med - H&P Results - Labs CBC & Chem 7: 05/08/19 22:29 05/08/19 22:29 Labs: Short CBC 05/08/19 Range/Units 22:29 WBC 8.8 (4.3-11.1) K/mcL Hgb 9.4 L (11.5-15.4) g/dL Hct 31.8 L (35.3-44.9) % Plt Count 381 (140-400) K/mcL Neutrophils # 7.8 (1.6-8.9) K/mcL BMP 05/08/19 22:29 Sodium 141 Potassium 3.6 Chloride 108 H Carbon Dioxide 24 BUN 6 L Creatinine 0.93 Glucose 111 H Calcium 8.6 Cardiac Enzymes 05/08/19 Range/Units 22:29 Troponin I < 0.03 (< 0.04) ng/mL Liver Function 05/08/19 Range/Units 22:29 Total Bilirubin 0.2 L (0.3-1.0) mg/dL Direct Bilirubin 0.0 (0.0-0.2) mg/dL AST 8 L (13-39) Units/L ALT 8 (7-52) Units/L Alkaline Phosphatase 99 (34-104) Units/L Albumin 3.5 (3.5-5.7) g/dL Urine 05/08/19 Range/Units 23:30 Urine Color Yellow (Yellow) Urine Clarity Cloudy A (Clear) Urine pH 6.5 (5.0-8.0) pH Units Ur Specific [place] 1.010 (1.010-1.025) Urine Protein 30 H (Neg-Trace) mg/dL Urine Glucose (UA) Normal (Normal) mg/dL - Impressions ITS Impressions Chest X-Ray 05/08/19 21:51 IMPRESSION: No acute cardiopulmonary findings. D/ / Curtis Leonardo / Curtis Leonardo Interpreting Provider: Curtis Leonardo Head CT 05/08/19 21:52 IMPRESSION: No acute intracranial abnormality. D/ / Luis M Mercado MD / Luis M Mercado MD Interpreting Provider: Luis M Mercado MD - Assessment and Plan (1) Altered mental status Current Visit: Yes Status: Acute Assessment and plan: Presented for reported altered mental status at home. Was oriented to person and place but not time while in ER. ER completed head CT which showed no acute intracranial abnormality. Urine toxicology was positive for cocaine. Currently patient is back to baseline alert and oriented to person place and time. Altered mental status possibly secondary to suspected urinary tract infection. Qualifiers: Altered mental status type: unspecified Qualified Code(s): R41.82 - Altered mental status, unspecified (2) UTI (urinary tract infection) Current Visit: Yes Status: Acute Assessment and plan: Urinalysis obtained in ER was positive for nitrites with large amount leukocyte esterase and white blood cells. Patient reports history of confusion with past UTIs. Reports having urinary frequency over past few days. ER started patient on ceftriaxone, will continue same. Urine culture pending. Qualifiers: Urinary tract infection type: site unspecified Hematuria presence: with hematuria Qualified Code(s): N39.0 - Urinary tract infection, site not specified; R31.9 - Hematuria, unspecified (3) Positive urine drug screen Current Visit: Yes Status: Acute Assessment and plan: Urine toxicology positive for cocaine. Denies any cocaine use, however does report being around others who were smoking cocaine 2 days ago. Also reports intermittently smoking marijuana. (4) Frequent falls Current Visit: Yes Status: Chronic Assessment and plan: Reports frequent mechanical falls at home. PT and OT consults ordered. Fall precautions ordered. (5) Shoulder pain Current Visit: Yes Status: Chronic Assessment and plan: Reports right shoulder pain from mechanical fall a few days ago. X-ray of right shoulder ordered. Qualifiers: Chronicity: unspecified Laterality: right Qualified Code(s): M25.511 - Pain in right shoulder (6) Low hemoglobin Current Visit: Yes Status: Chronic Assessment and plan: Currently 9.4, most recent comparison was September 2018 at 10.3 Denies any blood loss. Repeat labs ordered. (7) Bipolar disorder Current Visit: Yes Status: Chronic Assessment and plan: Continue home medications once verified. Qualifiers: Active/Remission status: remission status unspecified Qualified Code(s): F31.9 - Bipolar disorder, unspecified (8) Anxiety Current Visit: No Status: Chronic Assessment and plan: Continue home medications once verified. (9) Tobacco abuse Current Visit: No Status: Chronic Assessment and plan: Cessation strongly encouraged. - Time Spent With Patient Total time spent is greater than 50% in coordination of care (as documented) at patient's floor/unit and/or counseling patient:
[2019-05-09 06:32] LABS: Alanine Aminotransferase 7 Units/L (7-52); Albumin 3.3 g/dL (3.5-5.7); Albumin/Globulin Ratio 1.5 (1.1-2.2); Alkaline Phosphatase 99 Units/L (34-104); Aspartate Amino Transferase 8 Units/L (13-39); BUN/Creatinine Ratio 7 (6-26); Bilirubin,Total 0.1 mg/dL (0.3-1.0); Blood Urea Nitrogen 7 mg/dL (8-23); Calcium 8.2 mg/dL (8.6-10.3); Carbon Dioxide 29 mEq/L (23-29); Chloride 108 mEq/L (98-107); Globulin 2.2 g/dL (2.4-3.5); Glucose 102 mg/dL (70-105); Osmolality,Calculated 292 (280-300); Potassium 3.5 mEq/L (3.5-5.1); Sodium 142 mEq/L (136-145); Total Protein 5.5 g/dL (6.4-8.9); eGFR For African Americans > 60 (> 60); eGFR For Non-African Americans 53 (> 60)
[2019-05-09 06:33] LABS: Basophils % 0.5 %; Eosinophils # 0.1 K/mcL (0.0-0.6); Eosinophils % 1.4 %; Hemoglobin 8.7 g/dL (11.5-15.4); Immature Granulocytes % 0.4 % (0-4); Lymphocytes # 0.8 K/mcL (0.6-4.6); Lymphocytes % 10.7 %; Mean Corpuscular Hemoglobin 25.4 pg (28.0-33.3); Mean Corpuscular Volume 87.5 fL (83.0-100.0); Mean Platelet Volume 10.3 fL (9.4-12.4); Monocytes # 0.5 K/mcL (0.0-1.3); Monocytes % 6.9 %; Neutrophils # 6.3 K/mcL (1.6-8.9); Platelet Count 384 K/mcL (140-400); Red Blood Count 3.43 M/mcL (3.82-4.97); Red Cell Distribution Width 18.4 % (11.5-14.5); Segmented Neutrophils % 80.1 %; White Blood Count 7.8 K/mcL (4.3-11.1)
--- NOTE | 2019-05-09 14:01 | Internal Med Progress Note ---
Hospitalist Progress Note - Encounter Date of Encounter: 05/09/19 Time of Encounter: 10:20 - Subjective Interval History: Ms. Camp is a 63 year old female with past medical history significant for COPD, GERD, chronic back pain, anxiety, bipolar, PTSD, and tobacco dependence pt was brought into ER by EMS due to patient's son finding her at home confused and altered. Upon arrival to ER patient was alert and oriented to person and place only. ER completed head CT which showed no acute intracranial abnormality. Her chest x-ray which showed no acute cardiopulmonary findings. Her urine toxicology screen which was positive for cocaine. UA revealed a possible UTI and was given fluids and started on antibiotics. 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 Today she is more alert, awake and O x4. She denied any CP / SOB. Still feeling weak and lethargic. - Exam Vitals: Temp Pulse Resp BP Pulse Ox 99.4 F 91 15 130/79 90 05/09/19 11:22 05/09/19 11:22 05/09/19 11:22 05/09/19 11:22 05/09/19 11:22 Exam: Gen: Alert, awake, Oriented to time,place and person Chest: Diminished breath sounds B/L, No wheezing, No crackles, No rales Heart: S1S2+ RRR No murmurs Abd: Soft, NT, BS +, No organomegaly Ext: No edema, pulses are palpable, No calf tenderness Neuro : No acute focal neuro deficits noticed Skin: No rash. - Assessment and Plan (1) UTI (urinary tract infection) Current Visit: Yes Status: Acute Assessment and Plan: Urinalysis obtained in ER was positive for nitrites with large amount leukocyte esterase and white blood cells. cont IV Rocephin Urine culture pending. (2) Altered mental status Current Visit: Yes Status: Acute Assessment and Plan: Multifactorial due to metabolic and toxic encephalopathy counseled to quit doing drugs improving continue symptomatic and supportive care (3) Positive urine drug screen Current Visit: Yes Status: Acute Assessment and Plan: Urine toxicology positive for cocaine. counseled to quit doing drugs (4) Shoulder pain Current Visit: Yes Status: Chronic Assessment and Plan: Reports right shoulder pain from mechanical fall a few days ago. X-ray of right shoulder showed no acute fracture.. She does have DJD cont supportive care out pt f/u with PCP (5) Anxiety Current Visit: No Status: Chronic Assessment and Plan: Continue home medications (6) Tobacco abuse Current Visit: No Status: Chronic Assessment and Plan: Counseled to quit smoking placed on nicotine patch (7) Bipolar disorder Current Visit: Yes Status: Chronic Assessment and Plan: Continue home medications (8) Frequent falls Current Visit: Yes Status: Chronic Assessment and Plan: Reports frequent mechanical falls at home. PT and OT consults ordered. Fall precautions ordered. - Time Spent with Patient Total time spent is greater than 50% in coordination of care (as documented) at patient's floor/unit and/or counseling patient: Internal Medicine: Result - Labs CBC & Chem 7: 05/09/19 05:56 05/09/19 05:56 Labs: Short CBC 05/08/19 05/09/19 Range/Units 22:29 05:56 WBC 8.8 7.8 (4.3-11.1) K/mcL Hgb 9.4 L 8.7 L (11.5-15.4) g/dL Hct 31.8 L 30.0 L (35.3-44.9) % Plt Count 381 384 (140-400) K/mcL Neutrophils # 7.8 6.3 (1.6-8.9) K/mcL BMP 05/08/19 05/09/19 22:29 05:56 Sodium 141 142 Potassium 3.6 3.5 Chloride 108 H 108 H Carbon Dioxide 24 29 BUN 6 L 7 L Creatinine 0.93 1.06 Glucose 111 H 102 Calcium 8.6 8.2 L Cardiac Enzymes 05/08/19 Range/Units 22:29 Troponin I < 0.03 (< 0.04) ng/mL Liver Function 05/08/19 05/09/19 Range/Units 22:29 05:56 Total Bilirubin 0.2 L 0.1 L (0.3-1.0) mg/dL Direct Bilirubin 0.0 (0.0-0.2) mg/dL AST 8 L 8 L (13-39) Units/L ALT 8 7 (7-52) Units/L Alkaline Phosphatase 99 99 (34-104) Units/L Albumin 3.5 3.3 L (3.5-5.7) g/dL Urine 05/08/19 Range/Units 23:30 Urine Color Yellow (Yellow) Urine Clarity Cloudy A (Clear) Urine pH 6.5 (5.0-8.0) pH Units Ur Specific [place] 1.010 (1.010-1.025) Urine Protein 30 H (Neg-Trace) mg/dL Urine Glucose (UA) Normal (Normal) mg/dL - ABG Interpretation ABG results: PT/INR, D-dimer PT 12.1 Seconds (9.4-12.1) 05/08/19 23:20 - Impressions Impressions Chest X-Ray 05/08/19 21:51 IMPRESSION: No acute cardiopulmonary findings. D/ / Curtis Leonardo / Curtis Leonardo Interpreting Provider: Curtis Leonardo Head CT 05/08/19 21:52 IMPRESSION: No acute intracranial abnormality. D/ / Luis M Mercado MD / Luis M Mercado MD Interpreting Provider: Luis M Mercado MD Shoulder X-Ray 05/09/19 05:45 IMPRESSION: 1. No acute osseous abnormality of the right shoulder. 2. Mild shoulder osteoarthritis. D/ : / 05/09/2019 07:47:40 Lida Palmer MD / [facility] Interpreting Provider: Lida Palmer MD Consult Discharge Plan - Plan Referrals: NONE,PCP [Primary Care Provider] - (1) UTI (urinary tract infection) Qualifiers: Urinary tract infection type: site unspecified Hematuria presence: with hematuria Qualified Code(s): N39.0 - Urinary tract infection, site not specified; R31.9 - Hematuria, unspecified (2) Altered mental status Qualifiers: Altered mental status type: unspecified Qualified Code(s): R41.82 - Altered mental status, unspecified (4) Shoulder pain Qualifiers: Chronicity: unspecified Laterality: right Qualified Code(s): M25.511 - Pain in right shoulder (7) Bipolar disorder Qualifiers: Active/Remission status: remission status unspecified Qualified Code(s): F31.9 - Bipolar disorder, unspecified
[2019-05-09] MEDS: risperiDONE 1 MG TABLET PO SCH (15:06)
[2019-05-09] MEDS: Nicotine 21 MG PATCH.TD24 TD SCH (15:06)
[2019-05-09] MEDS ORDERED: Ondansetron ODT 4 MG TAB.RAPDIS SL PRN (15:41)
[2019-05-09] MEDS: Budesonide/Formoterol 80/4.5 1 PUFF INH IH SCH ×2 (16:05→20:33)
[2019-05-09] MEDS ORDERED: NON-FORMULARY MEDICATION 1 EACH EACH (Ranitidine Hcl [Zantac] 150 MG) PO SCH (21:00)
[2019-05-10] MEDS ORDERED: cefTRIAXone 1,000 MG in Water for inj. (sterile) 10 ML IVP SCH (06:00)
[2019-05-10 07:23] VITALS: BP 126/80
[2019-05-10] MEDS: Budesonide/Formoterol 80/4.5 1 PUFF INH IH SCH (07:26)
[2019-05-10] MEDS: Nicotine 21 MG PATCH.TD24 TD SCH (09:50)
[2019-05-10] MEDS: risperiDONE 1 MG TABLET PO SCH (09:51)
--- NOTE | 2019-05-10 11:10 | Discharge Summary ---
- NOTES TO OUTPATIENT PROVIDER Notes to Outpatient Provider: f/u with PCP in one week. Please quit doing drugs. Please quit smoking tobacco. Orders not resulted at time of discharge: Pending orders 05/08/19 23:30 Culture,Urine [RM] Stat Date of Encounter: 05/10/19 Time of Encounter: 11:08 - Discharge Diagnosis (1) UTI (urinary tract infection) Priority: Primary Status: Acute Qualifiers: Urinary tract infection type: site unspecified Hematuria presence: with hematuria Qualified Code(s): N39.0 - Urinary tract infection, site not specified; R31.9 - Hematuria, unspecified (2) Altered mental status Priority: Secondary Status: Acute Qualifiers: Altered mental status type: unspecified Qualified Code(s): R41.82 - Altered mental status, unspecified (3) Positive urine drug screen Priority: Secondary Status: Acute (4) Shoulder pain Priority: Secondary Status: Chronic Qualifiers: Chronicity: unspecified Laterality: right Qualified Code(s): M25.511 - Pain in right shoulder (5) Anxiety Priority: Secondary Status: Chronic (6) Tobacco abuse Priority: Secondary Status: Chronic (7) Bipolar disorder Priority: Secondary Status: Chronic Qualifiers: Active/Remission status: remission status unspecified Qualified Code(s): F31.9 - Bipolar disorder, unspecified (8) Frequent falls Priority: Secondary Status: Chronic Hospital course: Ms. Camp is a 63 year old female with past medical history significant for COPD, GERD, chronic back pain, anxiety, bipolar, PTSD, and tobacco dependence pt was brought into ER by EMS due to patient's son finding her at home confused a nd altered. Upon arrival to ER patient was alert and oriented to person and place only. ER completed head CT which showed no acute intracranial abnormality. Her chest x-ray which showed no acute cardiopulmonary findings. Her urine toxicology screen which was positive for cocaine. UA revealed a possible UTI and was given fluids and started on antibiotics. She was admitted in the hospital and placed on conveyor monitor. She was started on empirical abx IV Rocephin. Her urine cx growing G-ve rods, she had mcallister sensitive E. Coli in the past, so will switch to PO Omnicef. Today she is more alert, awake and O x4. She denied any CP / SOB. Will d/c her home in stable condition today. - Time Spent with Patient Total time spent providing and/or coordinating discharge services: - Discharge Medications Prescriptions: New Nicotine Patch [Nicoderm] 21 mg TD DAILY #30 patch.td24 Cefdinir [Omnicef] 300 mg PO BID #10 capsule Continued Doxepin HCl 200 mg PO HS Ferrous Sulfate 325 mg PO DAILY Pantoprazole Sodium [Protonix] 40 mg PO BID raNITIdine HCl [Zantac] 150 mg PO BID Budesonide/Formoterol 80/4.5 [Symbicort 80/4.5] 2 puff IH BIDR inhaler ALPRAZolam [Xanax 1 MG Tablet] 1 mg PO QID PRN PRN Reason: Anxiety OxyCODONE/APAP 5/325 [Percocet 5/325 MG] 1 tab PO Q6H PRN PRN Reason: Pain Home Medications: Doxepin HCl 200 mg PO HS 10/07/18 [History] Ferrous Sulfate 325 mg PO DAILY 10/07/18 [History] Pantoprazole Sodium [Protonix] 40 mg PO BID 10/07/18 [History] raNITIdine HCl [Zantac] 150 mg PO BID 10/07/18 [History] Budesonide/Formoterol 80/4.5 [Symbicort 80/4.5] 2 puff IH BIDR inhaler 10/08/18 [Rx] ALPRAZolam [Xanax 1 MG Tablet] 1 mg PO QID PRN 05/10/19 [History] Cefdinir [Omnicef] 300 mg PO BID #10 capsule 05/10/19 [Rx] Nicotine Patch [Nicoderm] 21 mg TD DAILY #30 patch.td24 05/10/19 [Rx] OxyCODONE/APAP 5/325 [Percocet 5/325 MG] 1 tab PO Q6H PRN 05/10/19 [History] Allergies/Adverse Reactions: Allergy/AdvReac Type Severity Reaction Status Date / Time eszopiclone [From Lunesta] AdvReac See Verified 05/08/19 21:52 Comments Zolpidem [From Ambien] AdvReac See Verified 05/08/19 21:52 Comments Date of admission: 05/09/19 01:11 Primary care physician: PCP NONE Consults: 05/09/19 06:13 Consult to Physical Therapy [CONS] Routine Comment: Evaluate, develop and implement POC Reason for Consult: Reports frequent mechanical falls at home, please evaluate and treat. Does patient have active BEDREST order?: No Is patient medically & hemodynamically stable?: Yes - Constitutional Vitals: Temp Pulse Resp BP Pulse Ox 98.4 F 90 20 126/80 92 05/10/19 07:20 05/10/19 07:20 05/10/19 07:27 05/10/19 07:20 05/10/19 07:27 General appearance: Present: cooperative, A&O X 3, no acute distress, answers questions appropriately Exam: Gen: Alert, awake, Oriented to time,place and person Chest: Diminished breath sounds B/L, No wheezing, No crackles, No rales Heart: S1S2+ RRR No murmurs Abd: Soft, NT, BS +, No organomegaly Ext: No edema, pulses are palpable, No calf tenderness Neuro : No acute focal neuro deficits noticed Skin: No rash. - Patient Status Disposition: Home Health Service Condition: Good Overall status at discharge: patient is back to baseline - Discharge Instructions Follow Up With: Nikolas Leonard DO [Resident] - 05/13/19 3:00 pm Additional Instructions: Home Health has been set up through [facility]. They will contact you with a time to come and see you. Start of care planned for . If you need to contact them please call #[phone] or #[phone]. - Diet and Activity Diet: low salt diet - VTE Documentation of Mechanical Device: Intermittent pneumatic compression device
--- NOTE | 2019-05-10 11:13 | Physician Discharge Referral ---
Home Health/Hosp Referral Info Transfer to: Home Health Provider in Charge Post Discharge: PCP - Diagnosis (1) UTI (urinary tract infection) Status: Acute (2) Altered mental status Status: Acute (3) Positive urine drug screen Status: Acute (4) Shoulder pain Status: Chronic (5) Anxiety Status: Chronic (6) Tobacco abuse Status: Chronic (7) Bipolar disorder Status: Chronic (8) Frequent falls Status: Chronic - Respiratory Orders Smoking Cessation: Smoking cessation has been advised. For more information, call the [place] Tobacco Quit Line at 3-784-KMKL-NOW. - Services Needed Following services are medically necessary services: Home Health Aide, Physical Therapy, Occupational Therapy - Transfer Medications Prescriptions: Nicotine Patch [Nicoderm] 21 mg TD DAILY #30 patch.td24 Cefdinir [Omnicef] 300 mg PO BID #10 capsule Home Medications: Doxepin HCl 200 mg PO HS 10/07/18 [History] Ferrous Sulfate 325 mg PO DAILY 10/07/18 [History] Pantoprazole Sodium [Protonix] 40 mg PO BID 10/07/18 [History] raNITIdine HCl [Zantac] 150 mg PO BID 10/07/18 [History] Budesonide/Formoterol 80/4.5 [Symbicort 80/4.5] 2 puff IH BIDR inhaler 10/08/18 [Rx] ALPRAZolam [Xanax 1 MG Tablet] 1 mg PO QID PRN 05/10/19 [History] Cefdinir [Omnicef] 300 mg PO BID #10 capsule 05/10/19 [Rx] Nicotine Patch [Nicoderm] 21 mg TD DAILY #30 patch.td24 05/10/19 [Rx] OxyCODONE/APAP 5/325 [Percocet 5/325 MG] 1 tab PO Q6H PRN 05/10/19 [History] Allergies/Adverse Reactions: Allergy/AdvReac Type Severity Reaction Status Date / Time eszopiclone [From Lunesta] AdvReac See Verified 05/08/19 21:52 Comments Zolpidem [From Ambien] AdvReac See Verified 05/08/19 21:52 Comments Certification: Further, I certify that my clinical findings support that this patient is homebound (i.e. absences from home require considerable and taxing effort and are for medical reasons or mandaeism services or infrequently or short duration when for other reasons) because: Homebound Reason: Patient requires assistance of a person or device to safely leave home Attestation: My signature below is to certify that this patient is under my care and that I, or nurse practitioner, or a physician's lab assistant working with me, has a [id number] encounter with this patient.
--- NOTE | 2019-05-12 15:05 | Electrocardiograph Report ---
[facility] Test Date: 2019-05-08 Pat Name: Ricky Camp Department: EXAM3 Room: 3B41 Gender: F Rn Rehabilitation: : 1955 Requested By: [id number] Order Number: [id number] Reading MD: Raul Fox Measurements Intervals [place] Rate: 91 P: -4 ME: 163 QRS: -24 QRSD: 127 T: 47 QT: 402 QTc: 495 Interpretive Statements Sinus rhythm Left bundle branch block Electronically Signed On 05-12-2019 15:03:53 EDT by Raul Fox
== END 2019-05-10 11:54 | disposition home health service (06) ==
LOC: EMEROOARM 21:22 → 3BNU 21:22 → SUATTDRO 05-09 01:11 → 3BNU 05-09 01:50
PROVIDERS: ADMIT Family Medicine; ATTEND Family Medicine